=== PATIENT | female | born 1965 | race Caucasian/White ===

== ENCOUNTER 2016-06-16 19:05 | Emergency (ER) | payer MEDICARE, OTHER ==
[~2016-06-16] VITALS: Ht 165.1 cm; Wt 41.0 kg
[~2016-06-16 19:05] MED LIST: HIGH BP MED; LEVO75TA3 PO; MORP30SU PO; NEXI20CA PO; PRED20 PO; SYMB80AE INH; VALI10TA PO; VENTAER INH; ZITH250T PO; [UNRECOGNIZED DRUG - REMARK]
[2016-06-16 19:06] VITALS: BP 187/86; PULSE 69; RESP 14; TEMP 98.1; O2SAT 94
--- NOTE | 2016-06-16 20:07 | PD ---
HPI Chief Complaint: Fall Time Seen by Provider: 19:57 Travel History International Travel<30 days: No Contact w/Intl Traveler<30days: No Traveled to known affect area: No History of Present Illness HPI 50-year-old female with history of COPD presents for evaluation of a mechanical fall. She reports a prior to arrival she was in her motel when she tripped and fell, striking her face against a sink. No loss of consciousness. She reports that it broke her upper false teeth. She is now complaining of facial pain, headache and neck pain. Symptoms are aching, constant, worse with movement or palpation. She endorses some nausea. Denies vomiting, confusion, amnesia. Denies any injury to the extremities, torso. She is complaining of some wheezing secondary to her COPD and is requesting a breathing treatment. She is not on any blood thinning medications. She has no other complaints at this time. PFSH Past Medical History Cardiovascular Problems: Yes (CHF) Hypertension: Yes Respiratory: Yes (COPD) Past Surgical History Hysterectomy: Yes Other Surgery: Yes (SPLEEN, LIVER) Social History Alcohol Use: No Tobacco Use: Yes (QUIT 6 MTH AGO) Substance Use: Yes (METH) Allergies-Medications (Allergen,Severity, Reaction): Coded Allergies: No Known Allergies (Unverified , 06/16/16) Reported Meds & Prescriptions Reported Meds & Active Scripts Active Lortab (Hydrocodone-Acetaminophen) 5-325 Mg Tab 1 Tab PO Q6H PRN Zithromax Z-Christian (Azithromycin) 250 Mg Tab 250 Mg PO DIRECTED 500 MG (2 TABLETS) PO ON DAY 1, THEN 250 MG (1 TABLET) PO ON DAYS 2 TO 5. Deltasone (Prednisone) 20 Mg Tab 20 Mg PO BID [id number] 18 Gm Aero 2 Puff INH Q4-6H PRN * SHAKE WELL BEFORE USE * Symbicort (Budesonide/Formoterol Fumarate) 80 Mcg/4.5 Mcg Aer 2 Puff INH BID * SHAKE WELL BEFORE USE * Reported [O2 @ Home] Nexium (Esomeprazole Magnesium) Esomeprazole Magnesium 20 mg Cap 20 Mg PO DAILY [id number] 18 Gm Aero 2 Puff INH Q4H PRN * SHAKE WELL BEFORE USE * [High Bp Med] Valium (Diazepam) 10 Mg Tab 10 Mg PO BID Levothyroxine 75 mcg (Levothyroxine Sodium) 75 Mcg Tab 75 Mcg PO DAILY Morphine Sulfate 30 Mg Tab 30 Mg PO Q6H PRN Review of Systems Except as stated in HPI: all other systems reviewed are Neg Physical Exam Narrative GENERAL: Well-developed well-nourished female in no acute distress SKIN: Warm and dry. Abrasions to the face, nose noted. No full-thickness lacerations. HEAD: Atraumatic. Normocephalic. EYES: Pupils equal and round. No scleral icterus. No injection or drainage. ENT: No nasal bleeding or discharge. Mucous membranes pink and moist. Skin as noted above. Tenderness to palpation to the bridge of nose, maxillary sinuses. No obvious bony deformity, no septal hematoma. Her false teeth have been removed prior to arrival. NECK: Trachea midline. No JVD. CARDIOVASCULAR: Regular rate and rhythm. No murmur appreciated. RESPIRATORY: No accessory muscle use. Mild wheezing bilaterally. GASTROINTESTINAL: Abdomen soft, non-tender, nondistended. MUSCULOSKELETAL: No obvious deformities. There is no cervical or thoracic or lumbar midline tenderness. NEUROLOGICAL: Awake and alert. No obvious cranial nerve deficits. Motor grossly within normal limits. Normal speech. Data Data Last Documented VS Vital Signs Date Time Temp Pulse Resp B/P Pulse Ox O2 Delivery O2 Flow Rate FiO2 06/16/16 20:00 20 95 Room Air 06/16/16 19:06 98.1 69 187/[address] Brain W/O Iv Contrast(Rout) (06/16/16 ) Ct Facial Bones W/O Iv Cont (06/16/16 ) Ct Cerv Spine W/O Contrast (06/16/16 ) Ice/Cold Pack (06/16/16 20:03) Albuterol-Ipratropium Neb (Duoneb Neb) (06/16/16 20:15) Acetamin-Hydrocod 325-5 Mg ([place] 5-325 (06/16/16 21:00) Ondansetron Odt (Zofran Odt) (06/16/16 21:00) [facility] Medical Decision Making Medical Screen Exam Complete: Yes Emergency Medical Condition: Yes Medical Record Reviewed: Yes Interpretation(s) CT C SPINE CONCLUSION: 1. No acute bony abnormality. Moderate to severe degenerative disc disease in the lower cervical spine. CT facial bones CONCLUSION: 1. Mildly displaced fractures of the anterior and medial wall of the right maxillary sinus and nasal septum with fractures of the medial and lateral pterygoid plates on the right. Fluid and hemorrhage in the maxillary sinuses. Small amount of subcutaneous air in the right face. CT brain no acute abnormalities Differential Diagnosis Facial abrasion, contusion, fracture, septal hematoma, intracranial hemorrhage Narrative Course 50-year-old female with head, neck, facial pain after a mechanical fall prior to arrival. On examination she has facial abrasions, tenderness to palpation. CT of the brain, cervical spine and facial bones have been ordered. DuoNeb therapy will be initiated. Her last tetanus vaccination was approximately one year ago. CT of the facial bones reveals mildly displaced fractures of the anterior and medial gleason of the maxillary sinus as well as the nasal septum. There also fractures through the medial and lateral revealed plates on the right. There is fluid or hemorrhage in the maxillary sinuses bilaterally. The globes are intact. We do not currently have a cranial facial surgeon risk control product liability director today and there is no indication for emergent transfer to an outside facility. The plan is to have the patient follow-up with a local cranial facial surgeon in the next few days. Discussed with my attending who agrees with plan of care. She will be given the name of several local cranial facial surgeons. She also has a primary care physician, Dr. Bliss, and is encouraged to call him if she has any trouble establishing care in the next 5 to 7 days. She is stable for discharge. Diagnosis Primary Impression: Multiple facial fractures Qualified Code: S02.92XA - Multiple facial fractures, closed, initial encounter Referrals: Ezra Adler DDS, Curtis J. DDS Thayer, Roger DMD Additional Instructions: Follow-up with a cranial facial surgeon such as Dr. Adler, Dr. Hackett, Dr. Salas, in the next 5-7 days. Call to make appointment. Apply ice pack to the affected area several times a day 10-15 minutes at a time. Wash the wounds gently with soap and water daily. Avoid blowing nose. Return for any emergent medical conditions. Med/Other Pt SpecificInfo: Prescription(s) given Scripts Hydrocodone-Acetaminophen (Lortab)5-325 Mg Tab1 Tab PO Q6H PRN (PAIN) #20 TAB Ref 0 Prov:Enrrique Razo MD 06/16/16 Disposition: 01 DISCHARGE HOME Condition: Stable Ke Jacinto Jun 16, 2016 20:07
[2016-06-16] MEDS ORDERED: RESP: ALBUTEROL 2.5 MG/IPRATROPIUM 0.5 MG NEB (SCH) INH ONE (20:15)
--- NOTE | 2016-06-16 20:45 | RADRPT ---
EXAM DATE/TIME: 06/16/2016 20:25 [facility] COMPARISON: No previous studies available for comparison. INDICATIONS : Trip and fall with head and facial trauma. RADIATION DOSE: 31.12 CTDIvol (mGy) MEDICAL HISTORY : Congestive hearrt failure. Hypertension. SURGICAL HISTORY : Hysterectomy. ENCOUNTER: Initial ACUITY: 1 day PAIN SCALE: 7/10 LOCATION: cranial TECHNIQUE: Multiple contiguous axial images were obtained of the head. Using automated exposure control and adj ustment of the mA and/or kV according to patient size, radiation dose was kept as low as reasonably a chievable to obtain optimal diagnostic quality images. FINDINGS: There is no acute intracranial hemorrhage, mass effect or shift. No hydrocephalus. There are right si ded facial bone fractures. See facial bone CT. Fluid or hemorrhage in the maxillary sinuses bilateral ly. CONCLUSION: 1. No acute intracranial abnormalities. Facial bone fractures. Lazarus Hi MD on June 16, 2016 at 20:42 Board Certified Radiologist. This report was verified electronically.
--- NOTE | 2016-06-16 20:49 | RADRPT ---
EXAM DATE/TIME: 06/16/2016 20:25 [facility] COMPARISON: No previous studies available for comparison. INDICATIONS : Trip and fall with head and facial trauma. RADIATION DOSE: 12.01 CTDIvol (mGy) MEDICAL HISTORY : Congestive hearrt failure. Hypertension. SURGICAL HISTORY : Hysterectomy. ENCOUNTER: Initial ACUITY: 1 day PAIN SCALE: 7/10 LOCATION: neck TECHNIQUE: Volumetric scanning of the cervical spine was performed. Multiplanar reconstructions in the sagittal, coronal and oblique axial planes were performed. Using automated exposure control and adjustment o f the mA and/or kV according to patient size, radiation dose was kept as low as reasonably achievable to obtain optimal diagnostic quality images. FINDINGS: There is moderate to severe degenerative disc disease with no acute fracture spondylolisthesis. No pr evertebral soft tissue swelling. CONCLUSION: 1. No acute bony abnormality. Moderate to severe degenerative disc disease in the lower cervical spin e. Lazarus Hi MD on June 16, 2016 at 20:44 Board Certified Radiologist. This report was verified electronically.
--- NOTE | 2016-06-16 20:51 | RADRPT ---
EXAM DATE/TIME: 06/16/2016 20:25 [facility] COMPARISON: No previous studies available for comparison. INDICATIONS : Trip and fall with head and facial trauma. RADIATION DOSE: 58.78 CTDIvol (mGy) MEDICAL HISTORY : Congestive hearrt failure. Hypertension. SURGICAL HISTORY : Hysterectomy. ENCOUNTER: Initial ACUITY: 1 day PAIN SCORE: 7/10 LOCATION: facial TECHNIQUE: Volumetric scanning of the facial bones was performed. Using automated exposure control and adjustme nt of the mA and/or kV according to patient size, radiation dose was kept as low as reasonably achiev able to obtain optimal diagnostic quality images. FINDINGS: There are mildly displaced fractures of the anterior and medial wall of the maxillary sinus as well a s the nasal septum. There also fractures through the medial and lateral pterygoid plates on the right . There is fluid or hemorrhage in the maxillary sinuses bilaterally. The globes are intact. CONCLUSION: 1. Mildly displaced fractures of the anterior and medial wall of the right maxillary sinus and nasal septum with fractures of the medial and lateral pterygoid plates on the right. Fluid and hemorrhage i n the maxillary sinuses. Small amount of subcutaneous air in the right face. Lazarus Hi MD on June 16, 2016 at 20:48 Board Certified Radiologist. This report was verified electronically.
[2016-06-16] MEDS ORDERED: HYDR-3533 PO (20:54)
[2016-06-16] MEDS ORDERED: ACETAMINOPHEN/HYDROcodone 325 MG/5 MG TAB PO ONE (21:00)
[2016-06-16] MEDS ORDERED: ONDANSETRON ODT 4 MG TAB PO ONE (21:00)
[2016-06-16] MEDS ORDERED: ZOFR4TAB PO (21:12)
[2016-08-31] MEDS ORDERED: CIPR250T2 PO (19:51)
== END 2016-06-16 21:24 | disposition home or self-care (01) ==
LOC: NEPB 19:05
DX: S02.40CA Maxillary fracture, right side, initial encounter for closed fracture (principal); S02.19XA Other fracture of base of skull, initial encounter for closed fracture; S02.2XXA Fracture of nasal bones, initial encounter for closed fracture; I10 Essential (primary) hypertension; H44.9 Unspecified disorder of globe; I50.9 Heart failure, unspecified; W01.10XA Fall on same level from slipping, tripping and stumbling with subsequent striking against unspecified object, initial encounter; Y92.59 Other trade areas as the place of occurrence of the external cause
CPT/HCPCS: 70450; 70486; 72125; 94664

== ENCOUNTER 2016-07-26 10:25 | Emergency (ER) | payer MEDICARE, OTHER ==
[~2016-07-26] VITALS: Ht 152.4 cm; Wt 50.0 kg
[~2016-07-26 10:25] MED LIST changes: +HYDR-3533 PO; +ZOFR4TAB PO
[2016-07-26] MEDS ORDERED: MORPHINE SULFATE 4 MG/ML INJ IV PUSH ONE (11:00)
[2016-07-26] MEDS ORDERED: SODIUM CHLORIDE 0.9% FLUSH 5 ML FLUSH IVF PRN ×2 (11:00→11:30)
--- NOTE | 2016-07-26 11:27 | PD ---
HPI Chief Complaint: chest pain Time Seen by Provider: 11:00 Travel History International Travel<30 days: No Contact w/Intl Traveler<30days: No Traveled to known affect area: No History of Present Illness HPI This is a 50-year-old female with history of COPD on 2.5 L of oxygen at night who presents for evaluation of dyspnea, some left-sided chest discomfort. For the past week she has been feeling more short of breath. She does endorse a cough which is new. Since yesterday she began experiencing a left-sided chest discomfort which she describes it as a throbbing pain on the left side of her chest that seems to be worse with movement, coughing. She denies any fevers or chills, Swelling, abdominal pain, nausea or vomiting. She reports that she has run out of her nebulizer and albuterol inhaler medication and she is concerned that she may be getting an infection. She has no other complaints at this time. PFSH Past Medical History Cardiovascular Problems: Yes (CHF) Hypertension: Yes Respiratory: Yes (COPD) Past Surgical History Hysterectomy: Yes Other Surgery: Yes (SPLEEN, LIVER) Social History Alcohol Use: No Tobacco Use: Yes (QUIT 6 MTH AGO) Substance Use: Yes (METH) Allergies-Medications (Allergen,Severity, Reaction): Coded Allergies: No Known Allergies (Unverified , 07/26/16) Reported Meds & Prescriptions Reported Meds & Active Scripts Active Prednisone 20 Mg Tab 20 Mg PO BID 5 Days Azithromycin 250 Mg Tab 250 Mg PO DIRECTED Take 2 tabs (500 mg) on day 1 then 1 tab daily x 4 days. Ventolin Hfa 18 GM Inh (Albuterol Sulfate) 90 Mcg/Act Aer 2 Puff INH Q4-6H PRN Albuterol Neb (Albuterol Sulfate) 2.5 Mg/3 Ml Neb 2.5 Mg NEB Q4HR NEB While awake Zofran (Ondansetron HCl) 4 Mg Tab 4 Mg PO Q6HR PRN Lortab (Hydrocodone-Acetaminophen) 5-325 Mg Tab 1 Tab PO Q6H PRN Reported [O2 @ Home] [High Bp Med] Review of Systems Except as stated in HPI: all other systems reviewed are Neg Physical Exam Narrative Blood pressure 175/79, O2 saturation on 2.5 L oxygen 100%, pulse 98, temperature 96.2, respiratory rate 20 GENERAL: Well-developed well-nourished female in no acute distress SKIN: Warm and dry. HEAD: Atraumatic. Normocephalic. EYES: Pupils equal and round. No scleral icterus. No injection or drainage. ENT: No nasal bleeding or discharge. Mucous membranes pink and moist. NECK: Trachea midline. No JVD. CARDIOVASCULAR: Regular rate and rhythm. No murmur appreciated. RESPIRATORY: No accessory muscle use. Clear to auscultation. Breath sounds equal bilaterally, somewhat diminished with prolonged expiratory phase. No crackles no wheezing or rhonchi GASTROINTESTINAL: Abdomen soft, non-tender, nondistended. Hepatic and splenic margins not palpable. MUSCULOSKELETAL: No obvious deformities. No edema NEUROLOGICAL: Awake and alert. No obvious cranial nerve deficits. Motor grossly within normal limits. Normal speech. PSYCHIATRIC: Appropriate mood and affect; insight and judgment normal. Data Data Last Documented VS Vital Signs Date Time Temp Pulse Resp B/P Pulse Ox O2 Delivery O2 Flow Rate FiO2 07/26/16 14:00 96.2 90 20 175/79 100 Orders Electrocardiogram (07/26/16 10:49) Sodium Chloride 0.9% Flush (Ns Flush) (07/26/16 11:00) Morphine Inj (Morphine Inj) (07/26/16 11:00) Electrocardiogram (07/26/16 11:20) Basic Metabolic Panel (Bmp) (07/26/16 11:20) Ckmb (Isoenzyme) Profile (07/26/16 11:20) Complete Blood Count With Diff (07/26/16 11:20) Magnesium (Mg) (07/26/16 11:20) Troponin I (07/26/16 11:20) Chest, Single Ap (07/26/16 11:20) Ecg Monitoring (07/26/16 11:20) Iv Access Insert/Monitor (07/26/16 11:20) Oximetry (07/26/16 11:20) Oxygen Administration (07/26/16 11:20) Sodium Chloride 0.9% Flush (Ns Flush) (07/26/16 11:30) Ct Pulmonary Angiogram (07/26/16 11:22) Albuterol-Ipratropium Neb (Duoneb Neb) (07/26/16 11:30) CKMB (07/26/16 12:11) CKMB% (07/26/16 12:11) Iohexol 350 Inj (Omnipaque 350 Inj) (07/26/16 13:25) Prednisone (Deltasone) (07/26/16 14:00) Albuterol-Ipratropium Neb (Duoneb Neb) (07/26/16 14:00) Labs Laboratory Tests Test 07/26/16 12:11 White Blood Count 10.4 TH/MM3 Red Blood Count 4.32 MIL/MM3 Hemoglobin 12.6 GM/DL Hematocrit 38.3 % Mean Corpuscular Volume 88.7 FL Mean Corpuscular Hemoglobin 29.2 PG Mean Corpuscular Hemoglobin 32.9 % Concent Red Cell Distribution Width 16.1 % Platelet Count 389 TH/MM3 Mean Platelet Volume 8.1 FL Neutrophils (%) (Auto) 84.9 % Lymphocytes (%) (Auto) 9.0 % Monocytes (%) (Auto) 4.5 % Eosinophils (%) (Auto) 1.0 % Basophils (%) (Auto) 0.6 % Neutrophils # (Auto) 8.8 TH/MM3 Lymphocytes # (Auto) 0.9 TH/MM3 Monocytes # (Auto) 0.5 TH/MM3 Eosinophils # (Auto) 0.1 TH/MM3 Basophils # (Auto) 0.1 TH/MM3 CBC Comment DIFF FINAL Differential Comment Sodium Level 134 MEQ/L Potassium Level 4.5 MEQ/L Chloride Level 98 MEQ/L Carbon Dioxide Level 30.9 MEQ/L Anion Gap 5 MEQ/L Blood Urea Nitrogen 8 MG/DL Creatinine 0.58 MG/DL Estimat Glomerular Filtration 110 ML/MIN Rate Random Glucose 96 MG/DL Calcium Level 8.6 MG/DL Magnesium Level 2.1 MG/DL Total Creatine Kinase 108 U/L Creatine Kinase MB 6.4 NG/ML Troponin I LESS THAN 0.02 NG/ML MDM Medical Decision Making Medical Screen Exam Complete: Yes Emergency Medical Condition: Yes Medical Record Reviewed: Yes Interpretation(s) EKG sinus rhythm Chest x-ray and emphysema no acute abnormalities CT pulmonary angiogram negative for embolus, small pericardial effusion, lobulated masses and left upper quadrant. CBC unremarkable CMP unremarkable, troponin negative, CK-MB mildly elevated at 6.4 Differential Diagnosis COPD exacerbation, aortic dissection, pulmonary embolism, bronchitis, pneumothorax, acute coronary syndrome, pericarditis, myocarditis Narrative Course 50-year-old female who is rather for albuterol nebulizer and inhaler presents with increased dyspnea over the past week, cough, some left-sided chest discomfort that is worse when she moves or coughs. On initial examination she appears well. Her oxygen saturation is 100% on her normal 2.5 L. She is not tachypneic or tachycardic. Lung auscultation reveals some diminished breath sounds and prolonged expiratory phase consistent with emphysema. Plan is for basic lab work, EKG, chest x-ray, CT pulmonary injury. She'll be monitored closely. The patient's lab work imaging studies have been reviewed and are reassuring. CT pulmonary injury was negative for embolus, she was given a copy discussed with her primary care physician whether or not she needs a CT abdomen and pelvis. The patient's symptoms appear to be consistent with a COPD exacerbation and this is what the patient feels most likely as well. Acute coronary syndrome was considered in the differential however her pain is very atypical. At this point in time the plan will be to discharge the patient with a refill of her albuterol nebulizer and inhaler as well as a short course of prednisone and azithromycin. She is agreeable with this plan. Diagnosis Primary Impression: COPD exacerbation Additional Instructions: Medication as prescribed. Avoid tobacco products. Follow-up closely with primary care physician. Return for new or worsening symptoms. Med/Other Pt SpecificInfo: Prescription(s) given Scripts Prednisone 20 Mg Tab20 Mg PO BID 5 Days Ref 0 Prov:Blanca Villarreal MD 07/26/16 Azithromycin 250 Mg [id number] Mg PO DIRECTED #6 TAB Ref 0 Take 2 tabs (500 mg) on day 1 then 1 tab daily x 4 days. Prov:Blanca Villarreal MD 07/26/16 Albuterol 18 GM Inh (Ventolin Hfa 18 GM Inh)90 Mcg/Act Aer2 Puff INH Q4-6H PRN ( SHORTNESS OF BREATH) #1 INHALER Ref 0 Prov:Blanca Villarreal MD 07/26/16 Albuterol Neb 2.5 Mg/3 Ml Neb2.5 Mg NEB Q4HR NEB #60 NEBULE Ref 0 While awake Prov:Blanca Villarreal MD 07/26/16 Disposition: 01 DISCHARGE HOME Condition: Stable Ke Jacinto Jul 26, 2016 11:27 Ke Jacinto Jul 26, 2016 11:27
[2016-07-26] MEDS ORDERED: RESP: ALBUTEROL 2.5 MG/IPRATROPIUM 0.5 MG NEB (SCH) INH ONE (11:30)
[2016-07-26 12:25] LABS: AUTOMATED NEUTROPHIL # 8.8 TH/MM3 (1.8-7.7); BASOPHIL # 0.1 TH/MM3 (0-0.2); BASOPHIL % 0.6 % (0.0-2.0); EOSINOPHIL # 0.1 TH/MM3 (0-0.4); HEMATOCRIT 38.3 % (35.0-46.0); HEMO FLAGS DIFF FINAL; LYMPHOCYTE # 0.9 TH/MM3 (1.0-4.8); MEAN CELL VOLUME 88.7 FL (80.0-100.0); MEAN CORPUSCULAR HEMOGLOBIN 29.2 PG (27.0-34.0); MEAN CORPUSCULAR HGB CONC 32.9 % (32.0-36.0); MONO % 4.5 % (0.0-8.0); NEUT % 84.9 % (16.0-70.0); PLATELET COUNT 389 TH/MM3 (150-450); RED BLOOD COUNT 4.32 MIL/MM3 (4.00-5.30); RED CELL DISTRIBUTION WIDTH 16.1 % (11.6-17.2); WHITE BLOOD COUNT 10.4 TH/MM3 (4.0-11.0)
--- NOTE | 2016-07-26 12:30 | RADRPT ---
EXAM DATE/TIME: 07/26/2016 11:21 [facility] COMPARISON: CHEST SINGLE AP, February 20, 2016, 17:42. INDICATIONS : Chest pain. MEDICAL HISTORY : Chronic obstructive pulmonary disease. SURGICAL HISTORY : None. ENCOUNTER: Initial ACUITY: 1 day PAIN SCORE: 7/10 LOCATION: Bilateral chest FINDINGS: A single view of the chest demonstrates the lungs to be symmetrically hyperinflated without evidence of mass, infiltrate or effusion. The cardiomediastinal contours are unremarkable. Osseous structure s are intact. CONCLUSION: Underlying emphysema. Jared Ross MD on July 26, 2016 at 12:27 Board Certified Radiologist. This report was verified electronically.
[2016-07-26 12:39] LABS: ANION GAP 5 MEQ/L (5-15); BICARBONATE 30.9 MEQ/L (21.0-32.0); BLOOD UREA NITROGEN 8 MG/DL (7-18); CHLORIDE 98 MEQ/L (98-107); GLOMERULAR FILTRATION RATE 110 ML/MIN (>89); MAGNESIUM 2.1 MG/DL (1.5-2.5); POTASSIUM 4.5 MEQ/L (3.5-5.1); SODIUM (NA) 134 MEQ/L (136-145)
[2016-07-26 12:41] LABS: CREATINE KINASE 108 U/L (26-192)
[2016-07-26 12:54] LABS: CKMB 6.4 NG/ML (0.5-3.6)
[2016-07-26] MEDS ORDERED: IOHEXOL 350 MG/ML 10 ML VIAL (for RAD DIAG) IV ONE (13:25)
--- NOTE | 2016-07-26 13:42 | RADRPT ---
EXAM DATE/TIME: 07/26/2016 13:24 [facility] COMPARISON: CT CERVICAL SPINE W/O CONTRAST, June 16, 2016, 20:25. INDICATIONS : Left sided chest pain for 2 days; evaluate for pulmonary embolism. IV CONTRAST: 65 cc Omnipaque 350 (iohexol) IV RADIATION DOSE: 14.64 CTDIvol (mGy) MEDICAL HISTORY : Hypertension. Cardiovascular disease SURGICAL HISTORY : Hysterectomy. Spleen and liver surgeries. ENCOUNTER: Initial ACUITY: 2 days PAIN SCALE: 6/10 LOCATION: Left chest TECHNIQUE: Volumetric scanning of the chest was performed using a pulmonary embolism protocol MIP images were re constructed. Using automated exposure control and adjustment of the mA and/or kV according to patien t size, radiation dose was kept as low as reasonably achievable to obtain optimal diagnostic quality images. FINDINGS: The examination is of excellent diagnostic quality. No pulmonary embolus is identified. The ascending aorta is mildly aneurysmal with a maximum dimension of 3.4 cm. The arch and descending thoracic aort a are normal in caliber. There is a moderate size pericardial effusion. No significant hilar or mediastinal adenopathy is seen . No axillary adenopathy is identified. Imaging through the thorax demonstrate severe COPD changes. There is advanced emphysema throughout robert th lung apices. The limited portions of upper abdomen visualized demonstrate multiple lobulated masses in the left up per quadrant of the abdomen. This appears to represent the spleen. The patient is likely post splenic injury and these may be splenules. If the patient has not had previous imaging of this, CT imaging t hrough the abdomen is warranted for further assessment. There are old, healed posterior rib fractures on the left. CONCLUSION: 1. There are advanced COPD changes. 2. Small pericardial effusion. 3. No pulmonary embolus. 4. Multiple lobulated masses in the left upper quadrant which probably represent splenules. If the pa tient has not had previous CT imaging of the abdomen this would be of benefit for further assessment. Enrrique Lewis MD on July 26, 2016 at 13:34 Board Certified Radiologist. This report was verified electronically.
[2016-07-26] MEDS ORDERED: ALBU0.08 NEB ×2 (13:53→13:55)
[2016-07-26] MEDS ORDERED: AZIT250T3 PO ×2 (13:53→13:55)
[2016-07-26] MEDS ORDERED: VENTAER INH ×2 (13:53→13:55)
--- NOTE | 2016-07-26 13:54 | PD ---
Data Data Orders Electrocardiogram (07/26/16 10:49) Sodium Chloride 0.9% Flush (Ns Flush) (07/26/16 11:00) Morphine Inj (Morphine Inj) (07/26/16 11:00) Electrocardiogram (07/26/16 11:20) Basic Metabolic Panel (Bmp) (07/26/16 11:20) Ckmb (Isoenzyme) Profile (07/26/16 11:20) Complete Blood Count With Diff (07/26/16 11:20) Magnesium (Mg) (07/26/16 11:20) Troponin I (07/26/16 11:20) Chest, Single Ap (07/26/16 11:20) Ecg Monitoring (07/26/16 11:20) Iv Access Insert/Monitor (07/26/16 11:20) Oximetry (07/26/16 11:20) Oxygen Administration (07/26/16 11:20) Sodium Chloride 0.9% Flush (Ns Flush) (07/26/16 11:30) Ct Pulmonary Angiogram (07/26/16 11:22) Albuterol-Ipratropium Neb (Duoneb Neb) (07/26/16 11:30) CKMB (07/26/16 12:11) CKMB% (07/26/16 12:11) Iohexol 350 Inj (Omnipaque 350 Inj) (07/26/16 13:25) Prednisone (Deltasone) (07/26/16 14:00) Duoneb Q15min X2 (07/26/16 14:00) Labs Laboratory Tests Test 07/26/16 12:11 White Blood Count 10.4 TH/MM3 Red Blood Count 4.32 MIL/MM3 Hemoglobin 12.6 GM/DL Hematocrit 38.3 % Mean Corpuscular Volume 88.7 FL Mean Corpuscular Hemoglobin 29.2 PG Mean Corpuscular Hemoglobin 32.9 % Concent Red Cell Distribution Width 16.1 % Platelet Count 389 TH/MM3 Mean Platelet Volume 8.1 FL Neutrophils (%) (Auto) 84.9 % Lymphocytes (%) (Auto) 9.0 % Monocytes (%) (Auto) 4.5 % Eosinophils (%) (Auto) 1.0 % Basophils (%) (Auto) 0.6 % Neutrophils # (Auto) 8.8 TH/MM3 Lymphocytes # (Auto) 0.9 TH/MM3 Monocytes # (Auto) 0.5 TH/MM3 Eosinophils # (Auto) 0.1 TH/MM3 Basophils # (Auto) 0.1 TH/MM3 CBC Comment DIFF FINAL Differential Comment Sodium Level 134 MEQ/L Potassium Level 4.5 MEQ/L Chloride Level 98 MEQ/L Carbon Dioxide Level 30.9 MEQ/L Anion Gap 5 MEQ/L Blood Urea Nitrogen 8 MG/DL Creatinine 0.58 MG/DL Estimat Glomerular Filtration 110 ML/MIN Rate Random Glucose 96 MG/DL Calcium Level 8.6 MG/DL Magnesium Level 2.1 MG/DL Total Creatine Kinase 108 U/L Creatine Kinase MB 6.4 NG/ML Troponin I LESS THAN 0.02 NG/ML MDM Supervised Visit with CARRILLO: Yes Narrative Course The history, exam, and medical decision-making in the associated midlevel provider note were completed with my assistance. I reviewed and agree with the findings presented. I attest that I had a [id number] encounter with the patient on the same day, and personally performed and documented my assessment and findings in the medical record. *My assessment and Findings: This is a 50-year-old female who presents to the emergency department with a history of COPD on 2-1/2 L of oxygen at home who presents today with increasing shortness of breath. She says she ran out of her nebulizers last night. She also says she's been having left-sided chest pain for 1 week which is pleuritic and worse with exertion. She is not in any respiratory distress on exam. She does have poor air movement. Labs are obtained which were reassuring and a CT pulmonary endocrine was negative for PE or pneumonia. She was given a bronchodilator treatment and will be discharged on steroids, bronchodilators as well as antibiotics. I don't suspect a cardiac etiology of her chest pain is his been going on for a week, troponin is negative , and her symptoms seemed predominantly pulmonary. Blanca Villarreal MD Jul 26, 2016 13:54
[2016-07-26] MEDS ORDERED: PRED20 PO (13:55)
[2016-07-26 14:00] VITALS: BP 175/79; PULSE 90; RESP 20; TEMP 96.2; O2SAT 100
[2016-07-26] MEDS ORDERED: predniSONE 20 MG TAB PO ONE (14:00)
[2016-07-26] MEDS: RESP: ALBUTEROL 2.5 MG/IPRATROPIUM 0.5 MG NEB (SCH) INH (14:09)
--- NOTE | 2016-07-27 11:26 | EKG ---
Date Performed: 07/26/2016 Time Performed: 11:40:36 PTAGE: 50 years EKG: Sinus rhythm WITH SHORT CA INTERVAL BORDERLINE ECG PREVIOUS TRACING : 02/20/2016 18.19 DOCTOR: Cecilio Fitch Interpretating Date/Time 07/27/2016 11:25:13
[2016-08-31] MEDS ORDERED: CIPR250T2 PO (19:51)
== END 2016-07-26 15:29 | disposition home or self-care (01) ==
LOC: NEDAMB 10:25
DX: J44.1 Chronic obstructive pulmonary disease with (acute) exacerbation (principal); I50.9 Heart failure, unspecified; I10 Essential (primary) hypertension
CPT/HCPCS: 71010; 71275; 80048; 82550; 82552; 83735; 84484; 85025; 93005; 94640; 94664; 99285; Q9967

== ENCOUNTER 2016-08-20 23:53 | Inpatient (IN) | payer MEDICARE, OTHER ==
[~2016-08-20] VITALS: Ht 157.5 cm; Wt 50.0 kg
[~2016-08-20 23:53] MED LIST changes: +ALBU0.08 NEB; +AZIT250T3 PO; -LEVO75TA3 PO; -MORP30SU PO; -NEXI20CA PO; -SYMB80AE INH; -VALI10TA PO; -ZITH250T PO
[2016-08-20 23:57] VITALS: BP 213/89; PULSE 124; RESP 22; TEMP 97.9; TEMP 99.2; O2SAT 97
[2016-08-21] VITALS (9 sets, daily range): BP systolic 100–144; BP diastolic 53–72; PULSE 90–114; RESP 16–25; TEMP 96.2–98.6; O2SAT 94–99
[2016-08-21] MEDS ORDERED: SYMB80AE INH (00:07)
[2016-08-21] MEDS ORDERED: LEVO75TA3 PO (00:07)
[2016-08-21] MEDS ORDERED: AZITHROMYCIN 250 MG TAB PO ONE (00:15)
[2016-08-21] MEDS ORDERED: SODIUM CHLORIDE 0.9% FLUSH 5 ML FLUSH IVF PRN (00:15)
[2016-08-21 00:24] LABS: AUTOMATED NEUTROPHIL # 15.1 TH/MM3 (1.8-7.7); BASOPHIL # 0.1 TH/MM3 (0-0.2); BASOPHIL % 0.3 % (0.0-2.0); EOSINOPHIL # 0.1 TH/MM3 (0-0.4); EOSINOPHIL % 0.6 % (0.0-4.0); HEMATOCRIT 39.3 % (35.0-46.0); HEMO FLAGS DIFF FINAL; LYMPH % 11.8 % (9.0-44.0); LYMPHOCYTE # 2.3 TH/MM3 (1.0-4.8); MEAN CELL VOLUME 87.3 FL (80.0-100.0); MEAN CORPUSCULAR HEMOGLOBIN 29.7 PG (27.0-34.0); MONO % 9.2 % (0.0-8.0); NEUT % 78.1 % (16.0-70.0); PLATELET COUNT 348 TH/MM3 (150-450); WHITE BLOOD COUNT 19.3 TH/MM3 (4.0-11.0)
[2016-08-21] MEDS: RESP: ALBUTEROL 2.5 MG/IPRATROPIUM 0.5 MG NEB (SCH) INH ×7 (00:30→21:36)
--- NOTE | 2016-08-21 00:40 | PD ---
HPI Chief Complaint: Respiratory Symptoms Time Seen by Provider: 00:05 Travel History International Travel<30 days: No Contact w/Intl Traveler<30days: No Traveled to known affect area: No History of Present Illness HPI Is a 50-year-old woman presents emergent from of increasing shortness of breath past 2 hours. She is a history of COPD. She's been sick for couple days now URI symptoms. Occasionally productive of thick sputum. Some mild chest pain. Started getting worse today. About 2 hours ago started having worsening of her shortness of breath. She called 911 and EMS found her 50% room air oxygen saturations. She was given steroids and bronchodilators in route. She is improved some. She states she fell earlier today on her back and has severe back pain as well. History Past Medical History Narrative Medical COPD CHF TMJ Hyperthyroidism Hypertension Tetanus Vaccination: Unknown Influenza Vaccination: No Social History Alcohol Use: No Tobacco Use: No (QUIT 6 MTH AGO) Allergies-Medications (Allergen,Severity, Reaction): Coded Allergies: No Known Allergies (Unverified , 08/21/16) Reported Meds & Prescriptions Reported Meds & Active Scripts Active Ventolin Hfa 18 GM Inh (Albuterol Sulfate) 90 Mcg/Act Aer 2 Puff INH Q4-6H PRN Albuterol Neb (Albuterol Sulfate) 2.5 Mg/3 Ml Neb 2.5 Mg NEB Q4HR NEB While awake Reported Levothyroxine (Levothyroxine Sodium) 75 Mcg Tab 75 Mcg PO DAILY Symbicort Inh (Budesonide/Formoterol Fumarate) 80-4.5 Mcg/Act Aero 1 Puff INH Q12HR Review of Systems Except as stated in HPI: all other systems reviewed are Neg Physical Exam Narrative GENERAL: 50 year-old woman, then, appears older than stated age SKIN: Warm and dry. NECK: Trachea midline. No JVD. CARDIOVASCULAR: Regular rate and rhythm. No murmur appreciated. RESPIRATORY: Mild respiratory distress with tight squeaky wheezes, not moving much air. GASTROINTESTINAL: Abdomen soft, non-tender, nondistended. Hepatic and splenic margins not palpable. MUSCULOSKELETAL: No obvious deformities. No edema.. NEUROLOGICAL: Awake and alert. No obvious cranial nerve deficits. Motor grossly within normal limits. Normal speech. Data Data Last Documented VS Vital Signs Date Time Temp Pulse Resp B/P Pulse Ox O2 Delivery O2 Flow Rate FiO2 08/21/16 00:20 20 Nasal Cannula 08/21/16 00:20 96 4.00 08/21/16 00:00 123 08/20/16 23:57 99.2 213/89 Orders Complete Blood Count With Diff (08/21/16 00:06) Comprehensive Metabolic Panel (08/21/16 00:06) Magnesium (Mg) (08/21/16 00:06) Influenzae A/B Antigen (08/21/16 00:06) Iv Access Insert/Monitor (08/21/16 00:06) Ecg Monitoring (08/21/16 00:06) Oximetry (08/21/16 00:06) Oxygen Administration (08/21/16 00:06) Chest, Single Ap (08/21/16 00:06) Sodium Chloride 0.9% Flush (Ns Flush) (08/21/16 00:15) Albuterol-Ipratropium Neb (Duoneb Neb) (08/21/16 00:15) Azithromycin (Zithromax) (08/21/16 00:15) Magnesium Sulfate 1 Gm Premix (Magnesium (08/21/16 00:45) Labs Laboratory Tests Test 08/21/16 00:10 White Blood Count 19.3 TH/MM3 Red Blood Count 4.50 MIL/MM3 Hemoglobin 13.4 GM/DL Hematocrit 39.3 % Mean Corpuscular Volume 87.3 FL Mean Corpuscular Hemoglobin 29.7 PG Mean Corpuscular Hemoglobin 34.0 % Concent Red Cell Distribution Width 16.0 % Platelet Count 348 TH/MM3 Mean Platelet Volume 8.3 FL Neutrophils (%) (Auto) 78.1 % Lymphocytes (%) (Auto) 11.8 % Monocytes (%) (Auto) 9.2 % Eosinophils (%) (Auto) 0.6 % Basophils (%) (Auto) 0.3 % Neutrophils # (Auto) 15.1 TH/MM3 Lymphocytes # (Auto) 2.3 TH/MM3 Monocytes # (Auto) 1.8 TH/MM3 Eosinophils # (Auto) 0.1 TH/MM3 Basophils # (Auto) 0.1 TH/MM3 CBC Comment DIFF FINAL Differential Comment Sodium Level 131 MEQ/L Potassium Level 4.4 MEQ/L Chloride Level 93 MEQ/L Carbon Dioxide Level 30.0 MEQ/L Anion Gap 8 MEQ/L Blood Urea Nitrogen 17 MG/DL Creatinine 0.58 MG/DL Estimat Glomerular Filtration 110 ML/MIN Rate Random Glucose 111 MG/DL Calcium Level 8.2 MG/DL Magnesium Level 2.0 MG/DL Total Bilirubin 0.3 MG/DL Aspartate Amino Transf 21 U/L (AST/SGOT) Alanine Aminotransferase 20 U/L (ALT/SGPT) Alkaline Phosphatase 115 U/L Total Protein 7.9 GM/DL Albumin 3.5 GM/DL [facility] Medical Decision Making Medical Screen Exam Complete: Yes Emergency Medical Condition: Yes Interpretation(s) LABS: CBC remarkable for white count of 19,000 CMP is unremarkable. Chest x-ray: Hyperaeration. No cardio pulmonary disease. Influenza negative. Differential Diagnosis COPD, pneumonia, influenza, ACS, other Narrative Course Medical decision making INITIAL cause a 50 year-old woman who presents emergency Department with COPD exacerbation. Looks okay. Still pretty tight. She got steroids in route. We' ll give her magnesium, continue breathing treatments, BiPAP if not improving. Check x-rays labs EKG. Diagnosis Primary Impression: COPD exacerbation Cecilio Hardin MD Aug 21, 2016 00:40
[2016-08-21 00:46] LABS: ALKALINE PHOSPHATASE 115 U/L (45-117); TOTAL BILIRUBIN ADULT 0.3 MG/DL (0.2-1.0)
[2016-08-21] MEDS: MAGNESIUM SULFATE 1 GM PREMIX 100 ML IV SCH ×2 (00:46→01:14)
[2016-08-21 00:53] LABS: ALT (GPT) 20 U/L (10-53); ANION GAP 8 MEQ/L (5-15); AST (GOT) 21 U/L (15-37); BLOOD UREA NITROGEN 17 MG/DL (7-18); CHLORIDE 93 MEQ/L (98-107); GLOMERULAR FILTRATION RATE 110 ML/MIN (>89); POTASSIUM 4.4 MEQ/L (3.5-5.1); SODIUM (NA) 131 MEQ/L (136-145)
--- NOTE | 2016-08-21 01:35 | RADRPT ---
EXAM DATE/TIME: 08/21/2016 00:45 [place] COMPARISON: CHEST SINGLE AP, July 26, 2016, 11:21. INDICATIONS : Shortness of breath. MEDICAL HISTORY : Hypertension. Chronic obstructive pulmonary disease. SURGICAL HISTORY : None. ENCOUNTER: Initial ACUITY: 1 day PAIN SCORE: 0/10 LOCATION: Bilateral chest FINDINGS: Single AP view of the chest. Hyperaeration is again seen indicating emphysema. Lungs are clear. No ev idence of pleural effusion or pneumothorax. Cardiomediastinal silhouette within normal limits. CONCLUSION: Hyperaeration again noted indicating emphysema. No acute cardiopulmonary disease identified. Kolby Rocha MD on August 21, 2016 at 1:32 Board Certified Radiologist. This report was verified electronically.
[2016-08-21] MEDS ORDERED: RESP: ALBUTEROL 2.5 MG/3 ML NEB (PRN) INH (03:00)
[2016-08-21] MEDS: HEPARIN SODIUM - SQ 10,000 UNITS/ML VIAL SQ SCH ×3 (04:11→18:08)
[2016-08-21] MEDS: methylPREDNISolone SOD SUCC 125 MG/2 ML VIAL IVP SCH ×4 (04:11→21:17)
--- NOTE | 2016-08-21 06:02 | HHI.HP ---
[facility] No Primary Care Physician Admission Diagnosis COPD exacerbation Diagnoses: (1) COPD exacerbation (2) Hyponatremia (3) Leukocytosis Chief Complaint: Dyspnea Travel History International Travel<30 Days: No Contact w/Intl Traveler <30 Da: No Traveled to Known Affected Are: No History of Present Illness The patient is a 50-year-old female with history of COPD who presented to the emergency department with worsening shortness of breath over the last few days. She reports chest discomfort that is associated with cough. She states that her cough is nonproductive. Denies fever, chills, night sweats. Has had nausea, but no vomiting. She is supposed to be on oxygen at home, but has been homeless and unable to obtain the oxygen. Review of Systems Constitutional: DENIES: Fever, Chills, Night Sweats Eyes: DENIES: Blurred vision, Vision loss Ears, nose, mouth, throat: DENIES: Hearing loss Respiratory: COMPLAINS OF: Cough, Wheezing, Shortness of breath, DENIES: Sputum production Cardiovascular: COMPLAINS OF: Chest pain, Dyspnea on Exertion, DENIES: Palpitations, Lower Extremity Edema Gastrointestinal: COMPLAINS OF: Nausea, DENIES: Abdominal pain, Constipation, Diarrhea, Vomiting Genitourinary: DENIES: Urinary frequency, Urinary incontinence, Urgency, Hematuria, Dysuria, Nocturia Musculoskeletal: DENIES: Joint pain, Muscle aches Integumentary: DENIES: Pruritus, Rash Hematologic/lymphatic: DENIES: Bruising Neurologic: COMPLAINS OF: Headache Past Family Social History Past Medical History COPD Hypothyroidism Hypertension CHF Past Surgical History Denies Reported Medications Ventolin Hfa 18 GM Inh (Albuterol Sulfate) 90 Mcg/Act Aer 2 Puff INH Q4-6H PRN Albuterol Neb (Albuterol Sulfate) 2.5 Mg/3 Ml Neb 2.5 Mg NEB Q4HR NEB While awake Levothyroxine (Levothyroxine Sodium) 75 Mcg Tab 75 Mcg PO DAILY Symbicort Inh (Budesonide/Formoterol Fumarate) 80-4.5 Mcg/Act Aero 1 Puff INH Q12HR Allergies: Coded Allergies: No Known Allergies (Unverified , 08/21/16) Family History Denies Social History Quit smoking last year. Denies alcohol or illicit drug use. Physical Exam Vital Signs Vital Signs Date Time Temp Pulse Resp B/P Pulse Ox O2 Delivery O2 Flow Rate FiO2 08/21/16 05:17 92 20 119/72 96 Nasal Cannula 3 08/21/16 00:20 20 Nasal Cannula 08/21/16 00:20 96 Nasal Cannula 4.00 08/21/16 00:20 97 Nasal Cannula 4 08/21/16 00:00 123 22 93 Nasal Cannula 4 08/20/16 23:57 99.2 124 22 213/89 97 Physical Exam GENERAL: Thin female in no acute distress. HEENT: Normocephalic, atraumatic. Pupils equal, round and reactive. Extraocular movements intact. No scleral icterus. No injection or drainage. Oropharynx is clear. Mucous membranes are moist. CARDIOVASCULAR: Tachycardic. RESPIRATORY: Diffuse wheeze. Breathing is non-labored. GASTROINTESTINAL: Abdomen soft, non-tender, nondistended. EXTREMITIES: No lower extremity edema. No calf tenderness. PSYCH: Alert and oriented x 3. Laboratory Laboratory Tests Test 08/21/16 00:10 White Blood Count 19.3 Red Blood Count 4.50 Hemoglobin 13.4 Hematocrit 39.3 Mean Corpuscular Volume 87.3 Mean Corpuscular Hemoglobin 29.7 Mean Corpuscular Hemoglobin 34.0 Concent Red Cell Distribution Width 16.0 Platelet Count 348 Mean Platelet Volume 8.3 Neutrophils (%) (Auto) 78.1 Lymphocytes (%) (Auto) 11.8 Monocytes (%) (Auto) 9.2 Eosinophils (%) (Auto) 0.6 Basophils (%) (Auto) 0.3 Neutrophils # (Auto) 15.1 Lymphocytes # (Auto) 2.3 Monocytes # (Auto) 1.8 Eosinophils # (Auto) 0.1 Basophils # (Auto) 0.1 CBC Comment DIFF FINAL Differential Comment Sodium Level 131 Potassium Level 4.4 Chloride Level 93 Carbon Dioxide Level 30.0 Anion Gap 8 Blood Urea Nitrogen 17 Creatinine 0.58 Estimat Glomerular Filtration 110 Rate Random Glucose 111 Calcium Level 8.2 Magnesium Level 2.0 Total Bilirubin 0.3 Aspartate Amino Transf 21 (AST/SGOT) Alanine Aminotransferase 20 (ALT/SGPT) Alkaline Phosphatase 115 Total Protein 7.9 Albumin 3.5 Date/Time Procedure Status Source Growth 08/21/16 00:19 Influenza Types A,B Antigen (SUGAR) - Final Complete Nasal Washing NEGATIVE FOR FLU A AND B ANTIGEN.... Result Diagram: 08/21/16908/21/169 Assessment and Plan Assessment and Plan 1. COPD exacerbation: Continue supplemental oxygen, bronchodilators, steroids, azithromycin. 2. Hypothyroidism: Continue Synthroid. 3. Leukocytosis: Possibly stress reaction versus infection. Monitor labs. 4. Hyponatremia: Continue IV fluids. Monitor labs. 5. DVT prophylaxis: Heparin. Sal Chavarria MD Aug 21, 2016 06:02
[2016-08-21] MEDS: LEVOTHYROXINE SODIUM 75 MCG TAB PO SCH (06:26)
[2016-08-21] MEDS: BUDESONIDE-FORMOTEROL 80/4.5 MCG INHALER INH SCH ×2 (09:05→21:15)
[2016-08-21] MEDS: SODIUM CHLORIDE 0.9% FLUSH 5 ML FLUSH IVF SCH ×2 (09:05→21:16)
[2016-08-21] MEDS ORDERED: ACETAMINOPHEN 325 MG TAB PO PRN (10:30)
[2016-08-21] MEDS ORDERED: CALCIUM CARBONATE 500 MG CHEWABLE TAB CHEW PRN (10:30)
[2016-08-21] MEDS ORDERED: MAGNESIUM HYDROXIDE SUSP 30 ML CUP PO PRN (10:30)
[2016-08-21] MEDS ORDERED: ONDANSETRON HCL 4 MG/2 ML VIAL IV PRN (10:30)
[2016-08-21] MEDS ORDERED: ALUMINUM/MAGNESIUM/SIMETH 30 ML CUP PO PRN (10:30)
[2016-08-21] MEDS ORDERED: DOCUSATE SODIUM 50 MG/SENNA 8.6 MG TAB PO PRN (10:30)
--- NOTE | 2016-08-21 11:01 | HHI.PR ---
Subjective Remarks Follow up for COPD exacerbation. The patient reports continued shortness of breath and wheezing overnight. She became dyspneic just ambulating to the bathroom without oxygen today. She reports continued intractable cough. She also has constant anterior chest pain worse with coughing. Requesting pain medication for the chest pain. No documented fevers overnight. She is hoping to have a home when she gets her check in the beginning of September however until then she is hoping to stay with a friend. Objective Vitals Vital Signs Date Time Temp Pulse Resp B/P Pulse Ox O2 Delivery O2 Flow Rate FiO2 08/21/16 09:55 97 Nasal Cannula 3.00 08/21/16 07:28 98.6 90 16 100/53 99 08/21/16 05:17 92 20 119/72 96 Nasal Cannula 3 08/21/16 00:20 20 Nasal Cannula 08/21/16 00:20 96 Nasal Cannula 4.00 08/21/16 00:20 97 Nasal Cannula 4 08/21/16 00:00 123 22 93 Nasal Cannula 4 08/20/16 23:57 99.2 124 22 213/89 97 Result Diagram: 08/21/16 0010 08/21/16 0010 Imaging 08/21/16 - CXR shows hyperaeration again noted indicating emphysema, no acute cardiopulmonary disease identified. Objective Remarks GENERAL: Well-nourished, well-developed then middle aged female patient in [facility]. SKIN: Warm and dry. No rash. HEENT: Normocephalic. Atraumatic. Pupils equal and round. No scleral icterus. No injection or drainage. Mucous membranes pink and moist. NECK: Supple. Trachea midline. CARDIOVASCULAR: Tachycardic, regular rhythm. S1, S2 noted. No murmur appreciated. RESPIRATORY: No accessory muscle use. Decreased breath sounds throughout, no wheezing. Breath sounds equal bilaterally. GASTROINTESTINAL: Abdomen soft, non-tender, nondistended. Normoactive bowel sounds x4. MUSCULOSKELETAL: No obvious deformities. Extremities without clubbing, cyanosis , or edema. NEUROLOGICAL: Awake and alert. No obvious cranial nerve deficits. Motor grossly within normal limits. 5/5 muscle strength in bilateral upper and lower extremities. Normal speech. PSYCHIATRIC: Appropriate mood and affect; insight and judgment normal. Medications and IVs Current Medications Medications (Trade) Dose Ordered Sig/Isadora Route Start Time Stop Time Status Last Admin (NS Flush) 2 ml BID IVF 3/13/17 09:00 08/21/16 09:05 (NS Flush) 2 ml UNSCH PRN IVF 08/21/16 03:00 (SoluMEDROL INJ) 60 mg Q6H IVP 08/21/16 03:00 08/21/16 09:05 (Zithromax) 500 mg Q24H PO 08/21/16 22:00 08/23/16 22:01 (Heparin Inj) 5,000 units Q8H SQ 08/21/16 03:00 08/21/16 10:56 (Symbicort 80-4.5 Mcg Inh) 1 puff Q12HR INH 08/21/16 09:00 08/21/16 09:05 (Synthroid) 75 mcg DAILY@0600 PO 08/21/16 06:00 08/21/16 06:26 (Tylenol) 650 mg Q4H PRN PO 08/21/16 10:30 (Zofran Inj) 4 mg Q6H PRN IV 08/21/16 10:30 (Rima-Colace) 1 tab BID PRN PO 08/21/16 10:30 (Milk Of Magnesia Liq) 30 ml DAILY PRN PO 08/21/16 10:30 (Mag-Al Plus Susp Liq) 30 ml Q6H PRN PO 08/21/16 10:30 08/21/16 10:55 (Tums Chew) 1,000 mg TID PRN CHEW 08/21/16 10:30 Urinary Catheter: No Vascular Central Line Catheter: No A/P Problem List: (1) COPD exacerbation ICD Code: J44.1 Status: Acute (2) Hyponatremia ICD Code: E87.1 Status: Acute (3) Leukocytosis ICD Code: D72.829 Status: Acute Assessment and Plan 50-year-old currently homeless female with history of COPD, HTN, CHF, hypothyroidism, presents with worsening shortness of breath over the past few days Acute Hypoxic Respiratory Failure secondary to COPD exacerbation: Per EMS, O2 sats ~50% upon their arrival, tachycardic, tachypneic, given Duonebs en route, presented to the ER on 6L NC with O2 sat 97%. CXR images reviewed by me, shows emphysematous changes but no acute infiltrate. Continue IV Solu-medrol 60mg q6h , Duonebs q6h and Albuterol nebs q2h prn. Continue Symbicort. O2 as needed. Azithromycin 500mg po qd x3days. Sepsis: +leukocytosis WBC 19.3, tachycardia HR 124. Possible early pneumonia, on Azithro. Monitor vitals. Afebrile. Suspect worsening leukocytosis with steroids. Monitor for fevers. Pleuritic Chest Pain: secondary to intractable coughing. Robitussin prn. [place] prn. Hypertension: Not on meds. BP fairly well controlled. Monitor BP, add antihypertensives as needed. Hypothyroidism: chronic, continue patient's levothyroxine. DVT Prophylaxis: teds/SCDs Written by Kim Cheung, acting as scribe for Dr. Graham on 08/21/16 at 11: 00. All or portions of this note were transcribed by scribe []. I, Dr. Gian Graham personally performed the history, physical exam, and medical decision making; and confirmed the accuracy of the information in the transcribed note. Authenticated by Dr. Gian Graham on 08/21/16 at 16:42. Kim Cheung PA-C Aug 21, 2016 11:01 Gian Graham MD Aug 21, 2016 16:42
[2016-08-21] MEDS: ACETAMINOPHEN/HYDROcodone 325 MG/5 MG TAB PO PRN ×2 (12:14→18:08)
[2016-08-21] MEDS ORDERED: guaiFENesin/DEXTROMETHORPHAN 200 MG/20 MG/10 ML CUP PO PRN (12:15)
--- NOTE | 2016-08-21 15:01 | EKG ---
Date Performed: 08/21/2016 Time Performed: 07:42:32 PTAGE: 50 years EKG: Sinus rhythm NORMAL ECG Compared to prior tracing no significant change PREVIOUS TRACING : 08/21/2016 00.01.17 DOCTOR: Kaela Quiñones Interpretating Date/Time 08/21/2016 14:54:00
--- NOTE | 2016-08-21 15:42 | EKG ---
Date Performed: 08/21/2016 Time Performed: 00:01:17 PTAGE: 50 years EKG: SINUS TACHYCARDIA ABNORMAL RHYTHM ECG Compared to PREVIOUS TRACING the sinus tachycardia is new. There has been increased peaking of the T waves which is probably rate related but hyperkalemia should be excluded. PREVIOUS TRACIN07/26/16 DOCTOR: Kaela Quiñones Interpretating Date/Time 08/21/2016 15:41:04
[2016-08-21] MEDS: AZITHROMYCIN 250 MG TAB PO SCH (21:16)
[2016-08-22] VITALS (9 sets, daily range): BP systolic 110–141; BP diastolic 54–69; PULSE 86–112; RESP 16–20; TEMP 97.2–98.8; O2SAT 92–96
[2016-08-22] MEDS: ACETAMINOPHEN/HYDROcodone 325 MG/5 MG TAB PO PRN ×4 (00:11→18:12)
[2016-08-22] MEDS: methylPREDNISolone SOD SUCC 125 MG/2 ML VIAL IVP SCH ×4 (03:47→21:40)
[2016-08-22] MEDS: HEPARIN SODIUM - SQ 10,000 UNITS/ML VIAL SQ SCH ×3 (03:47→18:12)
[2016-08-22] MEDS: SODIUM CHLORIDE 0.9% FLUSH 5 ML FLUSH IVF PRN (03:48)
[2016-08-22] MEDS: RESP: ALBUTEROL 2.5 MG/IPRATROPIUM 0.5 MG NEB (SCH) INH ×4 (03:58→21:26)
[2016-08-22] MEDS: LEVOTHYROXINE SODIUM 75 MCG TAB PO SCH (04:47)
[2016-08-22 06:18] LABS: AUTOMATED NEUTROPHIL # 22.8 TH/MM3 (1.8-7.7); HEMATOCRIT 36.9 % (35.0-46.0); HEMO FLAGS DIFF FINAL; LYMPH % 2.5 % (9.0-44.0); LYMPHOCYTE # 0.6 TH/MM3 (1.0-4.8); MEAN CELL VOLUME 87.9 FL (80.0-100.0); MEAN CORPUSCULAR HEMOGLOBIN 29.3 PG (27.0-34.0); MEAN CORPUSCULAR HGB CONC 33.3 % (32.0-36.0); MONO % 1.9 % (0.0-8.0); NEUT % 95.6 % (16.0-70.0); PLATELET COUNT 349 TH/MM3 (150-450); RED BLOOD COUNT 4.19 MIL/MM3 (4.00-5.30); RED CELL DISTRIBUTION WIDTH 16.1 % (11.6-17.2); WHITE BLOOD COUNT 23.9 TH/MM3 (4.0-11.0)
[2016-08-22 06:43] LABS: BICARBONATE 31.9 MEQ/L (21.0-32.0); POTASSIUM 4.6 MEQ/L (3.5-5.1)
[2016-08-22] MEDS: BUDESONIDE-FORMOTEROL 80/4.5 MCG INHALER INH SCH ×2 (08:55→21:39)
[2016-08-22] MEDS: SODIUM CHLORIDE 0.9% FLUSH 5 ML FLUSH IVF SCH ×2 (08:56→21:40)
[2016-08-22] MEDS ORDERED: DEXTROSE 50% IN WATER 50 ML VIAL(D50) IV PUSH PRN (10:00)
[2016-08-22] MEDS ORDERED: GLUCAGON 1 MG/ML VIAL OTHER PRN (10:00)
[2016-08-22] MEDS: INSULIN ASPART SUPPLEMENTAL SCALE SQ SCH ×3 (12:04→21:00)
--- NOTE | 2016-08-22 14:10 | HHI.PR ---
Subjective Remarks Follow-up COPD. States her breathing was worse earlier. On 2 L nasal cannula. Discussed with RN Objective Vitals Vital Signs Date Time Temp Pulse Resp B/P Pulse Ox O2 Delivery O2 Flow Rate FiO2 08/22/16 12:00 97.2 112 18 110/54 94 08/22/16 09:36 96 Nasal Cannula 2.00 08/22/16 08:00 97.8 105 18 121/69 92 08/22/16 04:00 97.5 86 17 119/57 96 08/22/16 00:00 97.6 95 16 121/59 95 08/21/16 21:36 95 Nasal Cannula 2.00 08/21/16 20:00 97.8 106 16 133/69 95 08/21/16 16:00 96.3 104 22 137/67 95 08/21/16 14:20 96.2 114 25 144/67 96 I/O 08/21/16 08/21/16 08/21/16 08/22/16 08/22/16 08/22/16 07:00 15:00 23:00 07:00 15:00 23:00 Intake Total 600 ml 240 ml Balance 600 ml 240 ml Intake Oral 600 ml 240 ml # Voids 4 1 Result Diagram: 08/22/16 0533 08/22/16 0533 Imaging Last Impressions Chest X-Ray 08/21/16 0006 Signed Impressions: Service Date/Time: Sunday, August 21, 2016 00:45 - CONCLUSION: Hyperaeration again noted indicating emphysema. No acute cardiopulmonary disease identified. Kolby Rocha MD Objective Remarks GENERAL: Well-developed, well-nourished in no distress SKIN: Warm and dry. HEAD: Atraumatic. Normocephalic. EYES: Pupils equal and round. No scleral icterus. No injection or drainage. ENT: No nasal bleeding or discharge. Mucous membranes pink and moist. NECK: Trachea midline. No JVD. CARDIOVASCULAR: Regular rate and rhythm. RESPIRATORY: No accessory muscle use. Clear to auscultation. Decreased Breath sounds equal bilaterally. GASTROINTESTINAL: Abdomen soft, non-tender, nondistended. MUSCULOSKELETAL: Extremities without clubbing, cyanosis, or edema. No obvious deformities. NEUROLOGICAL: Awake and alert. No obvious cranial nerve deficits. Motor grossly within normal limits. Five out of 5 muscle strength in the arms and legs. Normal speech. PSYCHIATRIC: Appropriate mood and affect; insight and judgment normal. Procedures none A/P Problem List: (1) COPD exacerbation ICD Code: J44.1 Status: Acute (2) Hyponatremia ICD Code: E87.1 Status: Acute (3) Leukocytosis ICD Code: D72.829 Status: Acute Assessment and Plan 50-year-old currently homeless female with history of COPD, HTN, CHF, hypothyroidism, presents with worsening shortness of breath over the past few days Acute Hypoxic on chronic Respiratory Failure secondary to COPD exacerbation: Per EMS, O2 sats ~50% upon their arrival, tachycardic, tachypneic, given Duonebs en route, presented to the ER on 6L NC with O2 sat 97%. CXR images reviewed by me, shows emphysematous changes but no acute infiltrate. Significant dyspnea on exertion. Continue IV Solu-medrol 60mg q6h, Duonebs q6h and Albuterol nebs q2h prn. Continue Symbicort. O2 as needed. Azithromycin 500mg po qd x3days. Sepsis: +leukocytosis WBC 19.3, tachycardia HR 124. Possible early pneumonia versus acute bronchitis, on Azithro. Monitor vitals. Afebrile. Suspect worsening leukocytosis with steroids. Monitor for fevers. Pleuritic Chest Pain: secondary to intractable coughing. Robitussin prn. [place] prn. Hypertension: Not on meds. BP fairly well controlled. Monitor BP, add antihypertensives as needed. Hypothyroidism: chronic, continue patient's levothyroxine. Hyperglycemia likely secondary to steroids. Monitor fingersticks with sliding scale coverage DVT Prophylaxis: teds/SCDs Discharge Planning Patient not ready for discharge Gian Graham MD Aug 22, 2016 14:10
[2016-08-22] MEDS: AZITHROMYCIN 250 MG TAB PO SCH (21:41)
[2016-08-23] VITALS (7 sets, daily range): BP systolic 102–159; BP diastolic 73–96; PULSE 89–109; RESP 16–20; TEMP 97.5–99.4; O2SAT 92–99
[2016-08-23] MEDS: ACETAMINOPHEN/HYDROcodone 325 MG/5 MG TAB PO PRN ×4 (01:16→21:04)
[2016-08-23] MEDS: HEPARIN SODIUM - SQ 10,000 UNITS/ML VIAL SQ SCH ×3 (01:17→17:10)
[2016-08-23] MEDS: SODIUM CHLORIDE 0.9% FLUSH 5 ML FLUSH IVF PRN (01:17)
[2016-08-23] MEDS: methylPREDNISolone SOD SUCC 125 MG/2 ML VIAL IVP SCH ×4 (01:17→21:03)
[2016-08-23] MEDS: RESP: ALBUTEROL 2.5 MG/IPRATROPIUM 0.5 MG NEB (SCH) INH ×4 (04:37→22:06)
[2016-08-23] MEDS: LEVOTHYROXINE SODIUM 75 MCG TAB PO SCH (05:52)
[2016-08-23] MEDS: INSULIN ASPART SUPPLEMENTAL SCALE SQ SCH ×4 (05:54→20:54)
[2016-08-23] MEDS: BUDESONIDE-FORMOTEROL 80/4.5 MCG INHALER INH SCH ×2 (07:50→20:56)
[2016-08-23] MEDS: SODIUM CHLORIDE 0.9% FLUSH 5 ML FLUSH IVF SCH ×2 (07:50→20:56)
[2016-08-23 10:00] LABS: BICARBONATE 31.6 MEQ/L (21.0-32.0); POTASSIUM 4.6 MEQ/L (3.5-5.1)
[2016-08-23 11:56] LABS: MEAN CELL VOLUME 87.8 FL (80.0-100.0); PLATELET COUNT 402 TH/MM3 (150-450); RED BLOOD COUNT 4.33 MIL/MM3 (4.00-5.30); RED CELL DISTRIBUTION WIDTH 15.8 % (11.6-17.2); WHITE BLOOD COUNT 20.7 TH/MM3 (4.0-11.0)
[2016-08-23 12:00] LABS: HEMO FLAGS AUTO DIFF
[2016-08-23 13:18] LABS: NEUTROPHIL # MANUAL DIFF 19.7 TH/MM3 (1.8-7.7); POLYS (SEG NEUTROPHILS) 95 % (16-70); WBC DIFF SAMPLE 100
[2016-08-23 13:20] LABS: TOXIC VACUOLATION PRESENT (NONE SEEN)
[2016-08-23 13:21] LABS: SCAN/DIFF FINAL DIFF MANUAL
--- NOTE | 2016-08-23 15:23 | HHI.PR ---
Subjective Remarks Seen manager basketball today. Patient still with wheezing. She also reports chest congestion and says she is not getting better. Says she has been intubated 2x in the past ( 10 years ago) Says she doesn't have a pulm doctor. Says COPD is worsening. No fevers or chills. Says no much cough. Feels sob and has wheezing. Objective Vitals Vital Signs Date Time Temp Pulse Resp B/P Pulse Ox O2 Delivery O2 Flow Rate FiO2 08/23/16 12:00 97.9 104 16 143/86 99 08/23/16 09:56 2.00 08/23/16 08:23 92 21 08/23/16 08:00 97.7 96 16 140/81 95 08/23/16 00:00 99.4 89 20 102/73 93 08/22/16 21:26 94 Nasal Cannula 2.00 08/22/16 20:00 98.5 96 20 141/60 96 08/22/16 16:00 98.8 107 18 110/54 93 I/O 08/22/16 08/22/16 08/22/16 08/23/16 08/23/16 08/23/16 07:00 15:00 23:00 07:00 15:00 23:00 Intake Total 240 ml 480 ml 280 ml 400 ml Balance 240 ml 480 ml 280 ml 400 ml Intake Oral 240 ml 480 ml 280 ml 400 ml IV Total 0 ml # Voids 1 3 2 2 # Bowel Movements 0 0 Result Diagram: 08/23/16 1137 08/23/16 0915 Imaging Last Impressions Chest X-Ray 08/21/16 0006 Signed Impressions: Service Date/Time: Sunday, August 21, 2016 00:45 - CONCLUSION: Hyperaeration again noted indicating emphysema. No acute cardiopulmonary disease identified. Kolby Rocha MD Objective Remarks GENERAL: Well-developed, well-nourished in no distress SKIN: Warm and dry. HEAD: Atraumatic. Normocephalic. EYES: Pupils equal and round. No scleral icterus. No injection or drainage. ENT: No nasal bleeding or discharge. Mucous membranes pink and moist. NECK: Trachea midline. No JVD. CARDIOVASCULAR: Regular rate and rhythm. RESPIRATORY: No accessory muscle use. Clear to auscultation. Decreased Breath sounds equal bilaterally. GASTROINTESTINAL: Abdomen soft, non-tender, nondistended. MUSCULOSKELETAL: Extremities without clubbing, cyanosis, or edema. No obvious deformities. NEUROLOGICAL: Awake and alert. No obvious cranial nerve deficits. Motor grossly within normal limits. Five out of 5 muscle strength in the arms and legs. Normal speech. PSYCHIATRIC: Appropriate mood and affect; insight and judgment normal. Procedures none A/P Problem List: (1) COPD exacerbation ICD Code: J44.1 Status: Acute (2) Hyponatremia ICD Code: E87.1 Status: Acute (3) Leukocytosis ICD Code: D72.829 Status: Acute Assessment and Plan 50-year-old currently homeless female with history of COPD, HTN, CHF, hypothyroidism, presents with worsening shortness of breath over the past few days Acute Hypoxic on chronic Respiratory Failure secondary to COPD exacerbation: Per EMS, O2 sats ~50% upon their arrival, tachycardic, tachypneic, given Duonebs en route, presented to the ER on 6L NC with O2 sat 97%. CXR images reviewed by me, shows emphysematous changes but no acute infiltrate. Significant dyspnea on exertion. Continue IV Solu-medrol 60mg q6h, Duonebs q6h and Albuterol nebs q2h prn. Continue Symbicort. O2 as needed. Azithromycin 500mg po qd x3days. Sepsis: +leukocytosis WBC 19.3, tachycardia HR 124. Possible early pneumonia versus acute bronchitis, on Azithro. Monitor vitals. Afebrile. Suspect worsening leukocytosis with steroids. Monitor for fevers. Patient with persistent leukocytosis however might be 2/2 steroid use, and tachycardia 2/2 albuterol use. Check pneumococcal Ag, legionella ag. Ibflu A/B negative Will consult pulm as patient doesn't have a pulm Pleuritic Chest Pain: secondary to intractable coughing. Robitussin prn. [place] prn. Hypertension: Not on meds. BP fairly well controlled. Monitor BP, add antihypertensives as needed. Hypothyroidism: chronic, continue patient's levothyroxine. Hyperglycemia likely secondary to steroids. Monitor fingersticks with sliding scale coverage DVT Prophylaxis: teds/SCDs Discharge Planning Patient not ready for discharge Raven Meneses MD Aug 23, 2016 15:23
[2016-08-23 16:22] LABS: HEMOGLOBIN A1b 1.6 %; HEMOGLOBIN Ao 85.3 %; HEMOGLOBIN LA1C 2.1 %; HEMOGLOBIN P3 3.9 %
[2016-08-23] MEDS: guaiFENesin E.R. 600 MG TAB PO SCH (21:04)
[2016-08-23] MEDS: AZITHROMYCIN 250 MG TAB PO SCH (21:04)
[2016-08-23 23:27] LABS: BACTERIA, URINE OCC /hpf; BLOOD, URINE NEG (NEG); COMMENT (UR) CULTURE INDICATED; CULTURE IF INDICATED CULTURE INDICATED; GLUCOSE,URINE NEG (NEG); KETONE, URINE NEG (NEG); MUCUS URINE FEW /lpf (OCC); NITRITE,URINE NEG (NEG); PH, URINE 7.5 (5.0-8.5); SQUAMOUS EPITHELIAL CELL URINE 2 /hpf (0-5); URINE COLOR LIGHT-YELLOW (YELLW/STRAW)
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
[2016-08-24] VITALS (10 sets, daily range): BP systolic 129–192; BP diastolic 74–119; PULSE 90–115; RESP 18–20; TEMP 97.1–98.7; O2SAT 96–100
[2016-08-24] MEDS: HEPARIN SODIUM - SQ 10,000 UNITS/ML VIAL SQ SCH ×3 (03:00→18:39)
[2016-08-24] MEDS: methylPREDNISolone SOD SUCC 125 MG/2 ML VIAL IVP SCH ×2 (03:01→09:08)
[2016-08-24] MEDS: ACETAMINOPHEN/HYDROcodone 325 MG/5 MG TAB PO PRN ×3 (03:01→15:24)
[2016-08-24] MEDS: RESP: ALBUTEROL 2.5 MG/IPRATROPIUM 0.5 MG NEB (SCH) INH ×3 (03:42→15:25)
[2016-08-24] MEDS: INSULIN ASPART SUPPLEMENTAL SCALE SQ SCH ×3 (06:16→15:27)
[2016-08-24] MEDS: LEVOTHYROXINE SODIUM 75 MCG TAB PO SCH (06:19)
[2016-08-24] MEDS ORDERED: MUCI600T PO (08:26)
[2016-08-24] MEDS ORDERED: PRED10PA PO (08:26)
[2016-08-24] MEDS ORDERED: LEVO75TA3 PO (08:26)
[2016-08-24] MEDS ORDERED: SYMB80AE INH (08:26)
[2016-08-24] MEDS ORDERED: ALBU0.08 NEB (08:26)
[2016-08-24] MEDS ORDERED: VENTAER INH (08:26)
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
[2016-08-24] MEDS ORDERED: OXYGENTANK NAS.CANULA (08:28)
[2016-08-24] MEDS: BUDESONIDE-FORMOTEROL 80/4.5 MCG INHALER INH SCH (09:07)
[2016-08-24] MEDS: SODIUM CHLORIDE 0.9% FLUSH 5 ML FLUSH IVF SCH (09:08)
[2016-08-24] MEDS: guaiFENesin E.R. 600 MG TAB PO SCH (09:08)
--- NOTE | 2016-08-24 11:38 | HHI.PR ---
Subjective Remarks Feels improved. She is still sob. No much cough. Feels very tired. No n/v/d/c. Objective Vitals Vital Signs Date Time Temp Pulse Resp B/P Pulse Ox O2 Delivery O2 Flow Rate FiO2 08/24/16 08:00 97.8 90 20 164/98 100 08/24/16 07:45 100 Nasal Cannula 2.00 08/24/16 04:01 18 08/24/16 04:00 98.7 95 18 129/74 96 08/24/16 00:00 98.7 110 20 155/97 96 08/23/16 22:06 95 Nasal Cannula 2.00 08/23/16 20:00 97.5 102 20 159/88 97 08/23/16 16:00 98.1 109 16 155/96 93 08/23/16 12:00 97.9 104 16 143/86 99 I/O 08/23/16 08/23/16 08/23/16 08/24/16 08/24/16 08/24/16 07:00 15:00 23:00 07:00 15:00 23:00 Intake Total 400 ml 960 ml 400 ml 360 ml Balance 400 ml 960 ml 400 ml 360 ml Intake Oral 400 ml 960 ml 400 ml 360 ml # Voids 2 3 2 3 # Bowel Movements 0 2 Result Diagram: 08/23/16 1137 08/23/16 0915 Imaging Last Impressions Chest X-Ray 08/21/16 0006 Signed Impressions: Service Date/Time: Sunday, August 21, 2016 00:45 - CONCLUSION: Hyperaeration again noted indicating emphysema. No acute cardiopulmonary disease identified. Kolby Rocha MD Objective Remarks GENERAL: Well-developed, well-nourished in no distress SKIN: Warm and dry. HEAD: Atraumatic. Normocephalic. EYES: Pupils equal and round. No scleral icterus. No injection or drainage. ENT: No nasal bleeding or discharge. Mucous membranes pink and moist. NECK: Trachea midline. No JVD. CARDIOVASCULAR: Regular rate and rhythm. RESPIRATORY: No accessory muscle use. Clear to auscultation. Decreased Breath sounds equal bilaterally. GASTROINTESTINAL: Abdomen soft, non-tender, nondistended. MUSCULOSKELETAL: Extremities without clubbing, cyanosis, or edema. No obvious deformities. NEUROLOGICAL: Awake and alert. No obvious cranial nerve deficits. Motor grossly within normal limits. Five out of 5 muscle strength in the arms and legs. Normal speech. PSYCHIATRIC: Appropriate mood and affect; insight and judgment normal. Procedures none A/P Problem List: (1) COPD exacerbation ICD Code: J44.1 Status: Acute (2) Hyponatremia ICD Code: E87.1 Status: Acute (3) Leukocytosis ICD Code: D72.829 Status: Acute Assessment and Plan 50-year-old currently homeless female with history of COPD, HTN, CHF, hypothyroidism, presents with worsening shortness of breath over the past few days Acute Hypoxic on chronic Respiratory Failure secondary to COPD exacerbation: Per EMS, O2 sats ~50% upon their arrival, tachycardic, tachypneic, given Duonebs en route, presented to the ER on 6L NC with O2 sat 97%. CXR images reviewed by me, shows emphysematous changes but no acute infiltrate. Significant dyspnea on exertion. Continue IV Solu-medrol 60mg q6h, Duonebs q6h and Albuterol nebs q2h prn. Continue Symbicort. O2 as needed. Azithromycin 500mg po qd x3days. Sepsis: +leukocytosis WBC 19.3, tachycardia HR 124. Possible early pneumonia versus acute bronchitis, on Azithro. Monitor vitals. Afebrile. Suspect worsening leukocytosis with steroids. Monitor for fevers. Patient with persistent leukocytosis however might be 2/2 steroid use, and tachycardia 2/2 albuterol use. Check pneumococcal Ag, legionella ag. neg Influ A/B negative Consult pulm as patient doesn't have a pulm Pleuritic Chest Pain: secondary to intractable coughing. Robitussin prn. [place] prn. Hypertension: Not on meds. BP fairly well controlled. Monitor BP, add antihypertensives as needed. Hypothyroidism: chronic, continue patient's levothyroxine. Hyperglycemia likely secondary to steroids. Monitor fingersticks with sliding scale coverage DVT Prophylaxis: teds/SCDs Discharge Planning Patient not ready for discharge Raven Meneses MD Aug 24, 2016 11:38
[2016-08-24] MEDS ORDERED: NORC5TAB PO (14:11)
[2016-08-24] MEDS ORDERED: methylPREDNISolone SOD SUCC 125 MG/2 ML VIAL IVP SCH (17:00)
[2016-08-24] MEDS ORDERED: ENALAPRILAT 1.25 MG/ML VIAL IV PUSH ONE (18:00)
--- NOTE | 2016-08-24 18:12 | HHI.PR ---
Subjective Remarks 50 YOWF, homelesss, with COPD On 02 3LNC Still has sob Wheezing improved no CP Objective Vital Signs Vital Signs Date Time Temp Pulse Resp B/P Pulse Ox O2 Delivery O2 Flow Rate FiO2 08/24/16 17:30 192/119 165/110 08/24/16 16:00 97.3 115 20 175/106 97 160/111 08/24/16 12:00 98.2 105 20 176/104 98 08/24/16 08:00 97.8 90 20 164/98 100 08/24/16 07:45 100 Nasal Cannula 2.00 08/24/16 04:01 18 08/24/16 04:00 98.7 95 18 129/74 96 08/24/16 00:00 98.7 110 20 155/97 96 08/23/16 22:06 95 Nasal Cannula 2.00 08/23/16 20:00 97.5 102 20 159/88 97 I/O 08/23/16 08/23/16 08/23/16 08/24/16 08/24/16 08/24/16 07:00 15:00 23:00 07:00 15:00 23:00 Intake Total 400 ml 960 ml 400 ml 360 ml 0 ml Balance 400 ml 960 ml 400 ml 360 ml 0 ml Intake Oral 400 ml 960 ml 400 ml 360 ml IV Total 0 ml # Voids 2 3 2 3 # Bowel Movements 0 2 Result Diagram: 08/23/16 1137 08/23/16 0915 Objective Remarks GENERAL: Thin built WF, mild sob SKIN: Warm and dry. HEAD: Normocephalic. EYES: No scleral icterus. No injection or drainage. NECK: Supple, trachea midline. No JVD or lymphadenopathy. CARDIOVASCULAR: Regular rate and rhythm without murmurs, gallops, or rubs. RESPIRATORY: Breath sounds equal bilaterally. No accessory muscle use. Hyper resonant chest, few rhonchi GASTROINTESTINAL: Abdomen soft, non-tender, nondistended. MUSCULOSKELETAL: No cyanosis, or edema. BACK: Nontender without obvious deformity. No CVA tenderness. A/P Assessment and Plan COPD exac Bronchitis leucocytosis pt is home less PLAN: DC Solumedrol pred 10 mg tid Aerosol nebs DVT proph PFT Cruz Chawla MD Aug 24, 2016 18:12
[2016-08-24] MEDS ORDERED: LISI-519 PO (18:48)
[2016-08-24] MEDS ORDERED: LISINOPRIL 5 MG TAB PO ONE (19:00)
[2016-08-24] MEDS ORDERED: hydrALAZINE HCL 25 MG TAB PO ONE (19:00)
[2016-08-24] MEDS ORDERED: RESP: ALBUTEROL 2.5 MG/IPRATROPIUM 0.5 MG NEB (PRN) NEB (19:00)
[2016-08-25] MEDS ORDERED: predniSONE 10 MG TAB PO SCH (09:00)
[2016-08-25] MEDS ORDERED: LISINOPRIL 5 MG TAB PO SCH (09:00)
--- NOTE | 2016-08-31 19:47 | PQ ---
Physician Query Response Document PATIENT: FRANCISCO TRUONG : 1965 ADMIT DATE: 08/21/2016 3:01 AM DISCH DATE: 08/24/2016 8:52 PM RESPONDING PROVIDER #: [email or web address] QUERY TEXT: Clarification of Clinical Diagnostic Findings Please clarify documentation or clinical relevance for the clinical / diagnostic findings or whether those are insignificant or unable to be further specified. If you have any additional questions/comments and/or concerns, please do not hesitate to reach out to the CDI/Coding Hotline, Ext. [phone]. The patient's Clinical Indicators include: Order placed 08/23/[address] Meneses. Culture was indicated. Final culture results on 08/25/16 (received after discharge) grew Escherichia Coli. Patient was on azithromycin for COPD/bro nchitis. Query created by: Georgina Ng on 08/28/2016 9:41 AM RESPONSE TEXT: Patient received IV abx ceftriaxone and azithro while inpatient, and she was asymptomatic. Need to re peat Urine cultures by her PCP as OP. Electronically signed by: Raven Meneses MD 08/31/2016 7:42 PM
[2016-08-31] MEDS ORDERED: CIPR250T2 PO (19:51)
--- NOTE | 2016-08-31 19:56 | HHI.PR ---
Addendum to Inpatient Note Addendum Reason: Additional Documentation Additional Information additional documentation: Written prescription for UTI E coli and sent to patient pharmacy. patient was not treated with ceftriaxone as inpatient,. ans she was treated only with azithromycin. She was noted with urine cultures positive for E coli, asymptomatic UTI. Her main symptoms were pulm symptoms. Cultures back with E coli, sent antibiotic to pharmacy listed Raven Meneses MD Aug 31, 2016 19:56
--- NOTE | 2016-09-01 19:44 | HHI.DS ---
Discharge Summary Admission Date Aug 21, 2016 at 03:01 Discharge Date: Aug 24, 2016 Admitting Diagnosis COPD exacerbation (1) COPD exacerbation ICD Code: J44.1 Diagnosis: Principal (2) Hyponatremia ICD Code: E87.1 Diagnosis: Principal (3) Leukocytosis ICD Code: D72.829 Diagnosis: Principal Procedures none Brief History - From Admission The patient is a 50-year-old female with history of COPD who presented to the emergency department with worsening shortness of breath over the last few days. She reports chest discomfort that is associated with cough. She states that her cough is nonproductive. Denies fever, chills, night sweats. Has had nausea, but no vomiting. She is supposed to be on oxygen at home, but has been homeless and unable to obtain the oxygen. Imaging Last Impressions Chest X-Ray 08/21/16 0006 Signed Impressions: Service Date/Time: Sunday, August 21, 2016 00:45 - CONCLUSION: Hyperaeration again noted indicating emphysema. No acute cardiopulmonary disease identified. Kolby Rocha MD PE at Discharge GENERAL: Well-developed, well-nourished in no distress SKIN: Warm and dry. HEAD: Atraumatic. Normocephalic. EYES: Pupils equal and round. No scleral icterus. No injection or drainage. ENT: No nasal bleeding or discharge. Mucous membranes pink and moist. NECK: Trachea midline. No JVD. CARDIOVASCULAR: Regular rate and rhythm. RESPIRATORY: No accessory muscle use. Clear to auscultation. Decreased Breath sounds equal bilaterally. GASTROINTESTINAL: Abdomen soft, non-tender, nondistended. MUSCULOSKELETAL: Extremities without clubbing, cyanosis, or edema. No obvious deformities. NEUROLOGICAL: Awake and alert. No obvious cranial nerve deficits. Motor grossly within normal limits. Five out of 5 muscle strength in the arms and legs. Normal speech. PSYCHIATRIC: Appropriate mood and affect; insight and judgment normal. Hospital Course 50-year-old currently homeless female with history of COPD, HTN, CHF, hypothyroidism, presents with worsening shortness of breath over the past few days Acute Hypoxic on chronic Respiratory Failure secondary to COPD exacerbation: Per EMS, O2 sats ~50% upon their arrival, tachycardic, tachypneic, given Duonebs en route, presented to the ER on 6L NC with O2 sat 97%. CXR images reviewed by me, shows emphysematous changes but no acute infiltrate. Significant dyspnea on exertion. Continue IV Solu-medrol 60mg q6h, Duonebs q6h and Albuterol nebs q2h prn. Continue Symbicort. O2 as needed. Azithromycin 500mg po qd x3days. Sepsis: +leukocytosis WBC 19.3, tachycardia HR 124. Possible early pneumonia versus acute bronchitis, on Azithro. Monitor vitals. Afebrile. Suspect worsening leukocytosis with steroids. Monitor for fevers. Patient with persistent leukocytosis however might be 2/2 steroid use, and tachycardia 2/2 albuterol use. Check pneumococcal Ag, legionella ag. neg Influ A/B negative Consult pulm as patient doesn't have a pulm doctor. Patient weaned off steroids and changed to PO. Patient was evaluated by pulm, she is with severe COPD and also homeless. Discussed with pulm and case management patient need placement to SNF. Patient did not have any urinary symptoms however due to leukocytosis noted UA was checked and urine cultures. Patient was DC to SNF . However UA.U cx with E coli sent abx to the pharmacy listed. Patient to follow up with PCP as well. Pleuritic Chest Pain: secondary to intractable coughing. Robitussin prn. [place] prn. Hypertension: Not on meds. BP fairly well controlled. Monitor BP, add antihypertensives as needed. Hypothyroidism: chronic, continue patient's levothyroxine. Hyperglycemia likely secondary to steroids. Monitor fingersticks with sliding scale coverage DVT Prophylaxis: teds/SCDs Improved., CM involved in DC plan as patient homeless and with severe COPD requiring O2. Patient improved and was DC to SNF in fairly stable condition . To followup as OP with PCP and consultants. Pt Condition on Discharge: Stable Discharge Disposition: Discharge to SNF Discharge Time: > 30 minutes Discharge Instructions DIET: Follow Instructions for: Heart Healthy Diet Activities you can perform: Regular-No Restrictions Follow up Referrals: PCP Follow-up - 3-5 Days Pulmonology - 2 Weeks New Medications: Ciprofloxacin (Ciprofloxacin) 250 Mg Tab 250 MG PO BID Infection #14 Ref 0 TAB Hydrocodone-Acetaminophen ([place]) 5-325 mg Tab 1 TAB PO Q8HR PRN PAIN #7 Ref 0 TAB Lisinopril (Lisinopril) 5 Mg Tab 5 MG PO DAILY Blood Pressure Management #30 Ref 0 TAB Oxygen tank (Oxygen tank) 1 Ea Tank 2 LITER CHRISTIANA.CANULA CONTINUOUS Oxygen Concentrator Portable Gaseous 2 L/min via Nasal Cannula Continuous For 99 months HYPOXEMIA PREVENTION #2 CYLINDER Prednisone (21) 10 mg tab Dose Pack (Prednisone (21) 10 mg tab Dose Pack) 10 Mg Pack 10 MG PO DIRECTED Inflammation #1 Ref 0 DSPK Guaifenesin ER 12 HR (Mucinex ER 12 HR) 600 Mg [place] 600 MG PO BID cough #14 TAB Continued Medications: Albuterol 18 GM Inh (Ventolin Hfa 18 GM Inh) 90 Mcg/Act Aer 2 PUFF INH Q4-6H PRN SHORTNESS OF BREATH #1 Ref 0 INHALER (This prescription has been renewed) Albuterol Neb (Albuterol Neb) 2.5 Mg/3 Ml Neb 2.5 MG NEB Q4HR NEB While awake Breathing Treatment #60 Ref 0 NEBULE (This prescription has been renewed) Budesonide-Formoterol Inh (Symbicort Inh) 80-4.5 Mcg/Act Aero 1 PUFF INH Q12HR Asthma Management #1 Ref 0 INHALER (This prescription has been renewed) Levothyroxine (Levothyroxine) 75 Mcg Tab 75 MCG PO DAILY Thyroid #30 Ref 0 TAB (This prescription has been renewed) Raven Meneses MD Sep 01, 2016 19:44
== END 2016-08-24 20:52 | DRG 190 ==
LOC: NEPE 23:53 → NEDA 08-21 02:19 → OBSVTOIN 08-21 03:01 → NEPHCDU 08-21 06:04 → HCPC 08-21 13:45
PROVIDERS: ADMIT Hospitalist; ATTEND Hospitalist
DX: J44.0 Chronic obstructive pulmonary disease with (acute) lower respiratory infection (principal); J96.21 Acute and chronic respiratory failure with hypoxia; A41.9 Sepsis, unspecified organism; E87.1 Hypo-osmolality and hyponatremia; J20.9 Acute bronchitis, unspecified; J44.1 Chronic obstructive pulmonary disease with (acute) exacerbation; I10 Essential (primary) hypertension; E03.9 Hypothyroidism, unspecified; R73.9 Hyperglycemia, unspecified; T38.0X5A Adverse effect of glucocorticoids and synthetic analogues, initial encounter; R00.0 Tachycardia, unspecified; M54.9 Dorsalgia, unspecified; Z91.81 History of falling; Z59.0 Homelessness; Z87.891 Personal history of nicotine dependence; R82.71 Bacteriuria
CPT/HCPCS: 71010; 76937; 80048; 80053; 81001; 82948; 83036; 83735; 85007; 85025; 85027; 87040; 87077; 87086; 87186; 87449; 87804; 93005; 94150; 94620; 94640; 94664; 94667; 94668; 96365; J1644; J1815; J2930; J3475; J7613

== ENCOUNTER 2016-10-25 08:36 | Inpatient (IN) | payer MEDICARE, OTHER ==
[~2016-10-25] VITALS: Ht 162.6 cm; Wt 46.0 kg
[2016-10-25] VITALS (7 sets, daily range): BP systolic 126–142; BP diastolic 64–80; PULSE 100–113; RESP 18–28; TEMP 97.7–98.2; O2SAT 95–99
[~2016-10-25 08:36] MED LIST changes: -AZIT250T3 PO; +CIPR250T2 PO; -HIGH BP MED; -HYDR-3533 PO; +LEVO75TA3 PO; +LISI-519 PO; +MUCI600T PO; +NORC5TAB PO; +OXYGENTANK NAS.CANULA; +PRED10PA PO; -PRED20 PO; +SYMB80AE INH; -ZOFR4TAB PO; -[UNRECOGNIZED DRUG - REMARK]
[2016-10-25] MEDS ORDERED: SODIUM CHLORIDE 0.9% FLUSH 10 ML FLUSH IVF PRN (09:00)
[2016-10-25 09:08] LABS: AUTOMATED NEUTROPHIL # 10.8 TH/MM3 (1.8-7.7); BASOPHIL # 0.1 TH/MM3 (0-0.2); BASOPHIL % 0.3 % (0.0-2.0); EOSINOPHIL # 0.1 TH/MM3 (0-0.4); EOSINOPHIL % 0.6 % (0.0-4.0); HEMO FLAGS DIFF FINAL; LYMPH % 19.8 % (9.0-44.0); MEAN CORPUSCULAR HEMOGLOBIN 28.6 PG (27.0-34.0); MEAN CORPUSCULAR HGB CONC 32.9 % (32.0-36.0); MONO % 9.3 % (0.0-8.0); PLATELET COUNT 374 TH/MM3 (150-450); RED BLOOD COUNT 4.71 MIL/MM3 (4.00-5.30); RED CELL DISTRIBUTION WIDTH 15.4 % (11.6-17.2); WHITE BLOOD COUNT 15.4 TH/MM3 (4.0-11.0)
[2016-10-25] MEDS: RESP: ALBUTEROL 2.5 MG/IPRATROPIUM 0.5 MG NEB (SCH) INH ×4 (09:16→20:25)
--- NOTE | 2016-10-25 09:18 | PD ---
HPI Chief Complaint: Respiratory Distress Time Seen by Provider: 08:48 Travel History International Travel<30 days: No Contact w/Intl Traveler<30days: No Traveled to known affect area: No History of Present Illness HPI Is a 50-year-old woman who presents to the emergency department complaining of severe shortness of breath. She's has a history of end-stage emphysema and COPD. She is on home oxygen. She's been out of her medicine for several days. She is living on [address] right now. She has an oxygen regular that she typically uses but is using attack right now. She called EMS that she developed chest tightness about 4 AM this morning. EMS reports she was not moving any air at all on arrival. Her oxygen saturation were preserved however. She was given 125 mg Solu-Medrol, and for neb treatments in route. She had some minimal improvement. She's had cough that been nonproductive. No fevers or chills. No other complaints. History Past Medical History Narrative Medical COPD/emphysema Borderline diabetes Hypertension CHF Hypothyroidism Remote history of IVDU Homelessness Tetanus Vaccination: < 5 Years Influenza Vaccination: Yes Social History Alcohol Use: No Tobacco Use: No Allergies-Medications (Allergen,Severity, Reaction): Coded Allergies: No Known Allergies (Unverified , 10/25/16) Reported Meds & Prescriptions Reported Meds & Active Scripts Active Ciprofloxacin (Ciprofloxacin HCl) 250 Mg Tab 250 Mg PO BID Lisinopril 5 Mg Tab 5 Mg PO DAILY [place] (Hydrocodone-Acetaminophen) 5-325 mg Tab 1 Tab PO Q8HR PRN Oxygen tank (Oxygen) 1 Ea Tank 2 Liter CHRISTIANA.CANULA CONTINUOUS Oxygen Concentrator Portable Gaseous 2 L/min via Nasal Cannula Continuous For 99 months Mucinex ER 12 HR (Guaifenesin) 600 Mg [place] 600 Mg PO BID Prednisone (21) 10 mg tab Dose Pack (Prednisone) 10 Mg Pack 10 Mg PO DIRECTED Levothyroxine (Levothyroxine Sodium) 75 Mcg Tab 75 Mcg PO DAILY Symbicort Inh (Budesonide/Formoterol Fumarate) 80-4.5 Mcg/Act Aero 1 Puff INH Q12HR Ventolin Hfa 18 GM Inh (Albuterol Sulfate) 90 Mcg/Act Aer 2 Puff INH Q4-6H PRN Albuterol Neb (Albuterol Sulfate) 2.5 Mg/3 Ml Neb 2.5 Mg NEB Q4HR NEB While awake Review of Systems Except as stated in HPI: all other systems reviewed are Neg Physical Exam Narrative GENERAL: 50-year-old woman, cachectic, moderate respiratory distress. SKIN: Focused skin assessment warm/dry. HEAD: Atraumatic. Normocephalic. EYES: Pupils equal and round. No scleral icterus. No injection or drainage. ENT: No nasal bleeding or discharge. Mucous membranes pink and moist. NECK: Trachea midline. No JVD. CARDIOVASCULAR: Regular rate and rhythm. No murmur appreciated. RESPIRATORY: Moderate respiratory distress. Speaks in short 3-4 word sentences. Poor air movement throughout. Minimally audible wheezing throughout. GASTROINTESTINAL: Abdomen soft, non-tender, nondistended. Hepatic and splenic margins not palpable. MUSCULOSKELETAL: No obvious deformities. Decreased muscle bulk. No edema. NEUROLOGICAL: Awake and alert. No obvious cranial nerve deficits. Motor grossly within normal limits. Normal speech. Data Data Last Documented VS Vital Signs Date Time Temp Pulse Resp B/P Pulse Ox O2 Delivery O2 Flow Rate FiO2 10/25/16 09:07 113 24 10/25/16 09:07 99 Nasal Cannula 2.5 10/25/16 08:43 97.7 137/80 Orders Complete Blood Count With Diff (10/25/16 08:48) Comprehensive Metabolic Panel (10/25/16 08:48) Troponin I (10/25/16 08:48) Arterial Blood Gas (Abg) (10/25/16 08:48) Iv Access Insert/Monitor (10/25/16 08:48) Ecg Monitoring (10/25/16 08:48) Oximetry (10/25/16 08:48) Oxygen Administration (10/25/16 08:48) Chest, Single Ap (10/25/16 08:48) Sodium Chloride 0.9% Flush (Ns Flush) (10/25/16 09:00) Albuterol-Ipratropium Neb (Duoneb Neb) (10/25/16 09:00) Labs Laboratory Tests Test 10/25/16 10/25/16 08:55 09:34 White Blood Count 15.4 TH/MM3 Red Blood Count 4.71 MIL/MM3 Hemoglobin 13.5 GM/DL Hematocrit 41.0 % Mean Corpuscular Volume 87.0 FL Mean Corpuscular Hemoglobin 28.6 PG Mean Corpuscular Hemoglobin 32.9 % Concent Red Cell Distribution Width 15.4 % Platelet Count 374 TH/MM3 Mean Platelet Volume 9.0 FL Neutrophils (%) (Auto) 70.0 % Lymphocytes (%) (Auto) 19.8 % Monocytes (%) (Auto) 9.3 % Eosinophils (%) (Auto) 0.6 % Basophils (%) (Auto) 0.3 % Neutrophils # (Auto) 10.8 TH/MM3 Lymphocytes # (Auto) 3.0 TH/MM3 Monocytes # (Auto) 1.4 TH/MM3 Eosinophils # (Auto) 0.1 TH/MM3 Basophils # (Auto) 0.1 TH/MM3 CBC Comment DIFF FINAL Differential Comment Sodium Level 136 MEQ/L Potassium Level 3.8 MEQ/L Chloride Level 94 MEQ/L Carbon Dioxide Level 33.2 MEQ/L Anion Gap 9 MEQ/L Blood Urea Nitrogen 7 MG/DL Creatinine 0.49 MG/DL Estimat Glomerular Filtration 134 ML/MIN Rate Random Glucose 105 MG/DL Calcium Level 9.2 MG/DL Total Bilirubin 0.3 MG/DL Aspartate Amino Transf 17 U/L (AST/SGOT) Alanine Aminotransferase 21 U/L (ALT/SGPT) Alkaline Phosphatase 127 U/L Troponin I LESS THAN 0.02 NG/ML Total Protein 7.9 GM/DL Albumin 3.3 GM/DL Blood Gas Puncture Site RT BRACHIAL Blood Gas Patient Temperature 98.6 Blood Gas HCO3 32 mmol/L Blood Gas Base Excess 7.2 mmol/L Blood Gas Oxygen Saturation 90 % Arterial Blood pH 7.40 Arterial Blood Partial 52 mmHg Pressure CO2 Arterial Blood Partial 61 mmHG Pressure O2 Arterial Blood Oxygen Content 16.5 Vol % Arterial Blood 2.6 % Carboxyhemoglobin Arterial Blood Methemoglobin 0.6 % Blood Gas Hemoglobin 13.1 G/DL Oxygen Delivery Device NASAL CANNULA Blood Gas Liter Flow 2 L/M [facility] Medical Decision Making Medical Screen Exam Complete: Yes Emergency Medical Condition: Yes Interpretation(s) My review of EKG: Sinus tachycardia at a rate of 110, short [place] interval, P pulmonale, normal axis, no acute ischemia. LABS: CBC remarkable for mild leukocytosis. CMP generally unremarkable. Troponin negative. ABG 7.4/52/61/32 Chest x-ray: Advanced COPD changes. No acute abnormality. Differential Diagnosis COPD, pneumonia, flu, CHF, other Narrative Course Medical decision making 50-year-old woman states she here without a medicines times several days, chest tightness shortness of breath fairly prominent respiratory distress. Improved with EMS. We'll check labs x-rays, continue nebs. Received steroids with EMS. Difficult social situation is a patient's home was, on oxygen, with no medications for COPD. Likely need admission. Diagnosis Primary Impression: COPD exacerbation Cecilio Hardin MD October 25, 2016 09:18
[2016-10-25 09:31] LABS: ANION GAP 9 MEQ/L (5-15); AST (GOT) 17 U/L (15-37); BICARBONATE 33.2 MEQ/L (21.0-32.0); BLOOD UREA NITROGEN 7 MG/DL (7-18); CHLORIDE 94 MEQ/L (98-107); GLOMERULAR FILTRATION RATE 134 ML/MIN (>89); POTASSIUM 3.8 MEQ/L (3.5-5.1); SODIUM (NA) 136 MEQ/L (136-145)
[2016-10-25 09:35] LABS: ALKALINE PHOSPHATASE 127 U/L (45-117); ALT (GPT) 21 U/L (10-53); TOTAL BILIRUBIN ADULT 0.3 MG/DL (0.2-1.0)
--- NOTE | 2016-10-25 09:40 | RADRPT ---
EXAM DATE/TIME: 10/25/2016 09:09 [place] COMPARISON: CHEST SINGLE AP, August 21, 2016, 0:45. INDICATIONS : Short of breath with wheezing. MEDICAL HISTORY : Chronic obstructive pulmonary disease. SURGICAL HISTORY : None. ENCOUNTER: Initial ACUITY: 1 day PAIN SCORE: 0/10 LOCATION: Bilateral chest FINDINGS: The heart is at the upper limits of normal in size. There COPD changes. The exam is stable when jay jay red to previous dated 08/21/16. The visualized bony structures demonstrate degenerative changes but are otherwise intact. CONCLUSION: 1. Advanced COPD changes. No acute abnormality. Enrrique Lewis MD on October 25, 2016 at 9:37 Board Certified Radiologist. This report was verified electronically.
[2016-10-25 09:44] LABS: BLOOD GAS BASE EXCESS 7.2 mmol/L (-2-2); BLOOD GAS CARBOXYHEMOGLOBIN 2.6 % (0-4); BLOOD GAS HCO3 32 mmol/L (22-26); BLOOD GAS METHEMOGLOBIN 0.6 % (0-2); BLOOD GAS O2 HGB SATURATION 90 % (90-100); BLOOD GAS OXYGEN CONTENT 16.5 Vol % (12.0-20.0); BLOOD GAS PCO2 52 mmHg (38-42); BLOOD GAS PO2 61 mmHG (61-120); BLOOD GAS TOTAL HGB 13.1 G/DL (12.0-16.0); TEMP CORR TO 98.6
[2016-10-25 09:45] LABS: CRITICAL VALUE YES; DRAW SITE RT BRACHIAL; LITER FLOW 2 L/M; NUMBER OF ARTERIAL PUNCTURES 1; OXYGEN DEVICE NASAL CANNULA; STAT YES
[2016-10-25] MEDS ORDERED: MAGNESIUM HYDROXIDE SUSP 30 ML CUP PO PRN (10:30)
[2016-10-25] MEDS ORDERED: ONDANSETRON HCL 4 MG/2 ML VIAL IVP PRN (10:30)
[2016-10-25] MEDS ORDERED: ACETAMINOPHEN 325 MG TAB PO PRN (10:30)
[2016-10-25] MEDS ORDERED: NALOXONE HCL 0.4 MG/ML AMP IV PRN (10:30)
--- NOTE | 2016-10-25 12:24 | EKG ---
Date Performed: 10/25/2016 Time Performed: 08:48:37 PTAGE: 50 years EKG: SINUS TACHYCARDIA WITH SHORT [place] INTERVAL POSSIBLE RIGHT ATRIAL ENLARGEMENT POSSIBLE LEFT AT RIAL ENLARGEMENT MODERATE ST DEPRESSION ABNORMAL ECG INTERPRETATION BASED ON A DEFAULT AGE OF 40 YEAR S NO PREVIOUS TRACING DOCTOR: Cecilio Fitch Interpretating Date/Time 10/25/2016 12:22:40
--- NOTE | 2016-10-25 12:54 | HHI.HP ---
[facility] Admission Diagnosis COPD exacerbation Diagnoses: (1) COPD exacerbation (2) Leukocytosis Chief Complaint: Dyspnea Travel History International Travel<30 Days: No Contact w/Intl Traveler <30 Da: No Traveled to Known Affected Are: No History of Present Illness The patient is a 50-year-old female who presented to the emergency department with complaint of worsening shortness of breath over the last 2 days. She reports night sweats, but denies fever or chills. She reports diarrhea and abdominal discomfort, but denies nausea or vomiting. She has chest wall tenderness from coughing. She states that she had to move back onto the streets and was unable to take her oxygen concentrator with her. She has been out of her medications. She did still have some oxygen left in her portable tank. Review of Systems Constitutional: COMPLAINS OF: Night Sweats, DENIES: Fever, Chills Eyes: DENIES: Blurred vision, Vision loss Ears, nose, mouth, throat: DENIES: Hearing loss Respiratory: COMPLAINS OF: Cough, Shortness of breath, DENIES: Wheezing, Sputum production Cardiovascular: COMPLAINS OF: Chest pain, DENIES: Palpitations, Dyspnea on Exertion, Lower Extremity Edema Gastrointestinal: COMPLAINS OF: Diarrhea, DENIES: Abdominal pain, Constipation , Nausea, Vomiting Genitourinary: DENIES: Urinary frequency, Urinary incontinence, Urgency, Hematuria, Dysuria, Nocturia Musculoskeletal: DENIES: Joint pain, Muscle aches Integumentary: DENIES: Pruritus, Rash Hematologic/lymphatic: DENIES: Bruising Neurologic: DENIES: Headache Past Family Social History Past Medical History COPD Hypothyroidism Hypertension CHF Past Surgical History None Reported Medications Ciprofloxacin (Ciprofloxacin HCl) 250 Mg Tab 250 Mg PO BID Lisinopril 5 Mg Tab 5 Mg PO DAILY Duncan (Hydrocodone-Acetaminophen) 5-325 mg Tab 1 Tab PO Q8HR PRN Oxygen tank (Oxygen) 1 Ea Tank 2 Liter CHRISTIANA.CANULA CONTINUOUS Oxygen Concentrator Portable Gaseous 2 L/min via Nasal Cannula Continuous For 99 months Mucinex ER 12 HR (Guaifenesin) 600 Mg Odell 600 Mg PO BID Prednisone (21) 10 mg tab Dose Pack (Prednisone) 10 Mg Pack 10 Mg PO DIRECTED Levothyroxine (Levothyroxine Sodium) 75 Mcg Tab 75 Mcg PO DAILY Symbicort Inh (Budesonide/Formoterol Fumarate) 80-4.5 Mcg/Act Aero 1 Puff INH Q12HR Ventolin Hfa 18 GM Inh (Albuterol Sulfate) 90 Mcg/Act Aer 2 Puff INH Q4-6H PRN Albuterol Neb (Albuterol Sulfate) 2.5 Mg/3 Ml Neb 2.5 Mg NEB Q4HR NEB While awake Allergies: Coded Allergies: No Known Allergies (Unverified , 10/25/16) Family History Cancer, diabetes, heart disease Social History Quit smoking a few months ago. Has had an occasional cigarette since then. Denies alcohol or illicit drug use. Physical Exam Vital Signs Vital Signs Date Time Temp Pulse Resp B/P Pulse Ox O2 Delivery O2 Flow Rate FiO2 10/25/16 11:50 105 24 126/74 99 Nasal Cannula 2.5 10/25/16 09:07 113 24 10/25/16 09:07 99 Nasal Cannula 2.5 10/25/16 08:46 26 99 Nasal Cannula 2.5 10/25/16 08:43 97.7 110 28 137/80 99 Physical Exam GENERAL: Thin female in no acute distress. HEENT: Normocephalic, atraumatic. Pupils equal, round and reactive. Extraocular movements intact. No scleral icterus. No injection or drainage. Oropharynx is clear. Mucous membranes are moist. CARDIOVASCULAR: Regular rate and rhythm without murmurs, gallops, or rubs. RESPIRATORY: Poor air movement. Decreased breath sounds throughout. GASTROINTESTINAL: Abdomen soft, non-tender, nondistended. EXTREMITIES: No lower extremity edema. No calf tenderness. PSYCH: Alert and oriented x 3. Laboratory Laboratory Tests Test 10/25/16 10/25/16 08:55 09:34 White Blood Count 15.4 Red Blood Count 4.71 Hemoglobin 13.5 Hematocrit 41.0 Mean Corpuscular Volume 87.0 Mean Corpuscular Hemoglobin 28.6 Mean Corpuscular Hemoglobin 32.9 Concent Red Cell Distribution Width 15.4 Platelet Count 374 Mean Platelet Volume 9.0 Neutrophils (%) (Auto) 70.0 Lymphocytes (%) (Auto) 19.8 Monocytes (%) (Auto) 9.3 Eosinophils (%) (Auto) 0.6 Basophils (%) (Auto) 0.3 Neutrophils # (Auto) 10.8 Lymphocytes # (Auto) 3.0 Monocytes # (Auto) 1.4 Eosinophils # (Auto) 0.1 Basophils # (Auto) 0.1 CBC Comment DIFF FINAL Differential Comment Sodium Level 136 Potassium Level 3.8 Chloride Level 94 Carbon Dioxide Level 33.2 Anion Gap 9 Blood Urea Nitrogen 7 Creatinine 0.49 Estimat Glomerular Filtration 134 Rate Random Glucose 105 Calcium Level 9.2 Total Bilirubin 0.3 Aspartate Amino Transf 17 (AST/SGOT) Alanine Aminotransferase 21 (ALT/SGPT) Alkaline Phosphatase 127 Troponin I LESS THAN 0.02 Total Protein 7.9 Albumin 3.3 Blood Gas Puncture Site RT BRACHIAL Blood Gas Patient Temperature 98.6 Blood Gas HCO3 32 Blood Gas Base Excess 7.2 Blood Gas Oxygen Saturation 90 Arterial Blood pH 7.40 Arterial Blood Partial 52 Pressure CO2 Arterial Blood Partial 61 Pressure O2 Arterial Blood Oxygen Content 16.5 Arterial Blood 2.6 Carboxyhemoglobin Arterial Blood Methemoglobin 0.6 Blood Gas Hemoglobin 13.1 Oxygen Delivery Device NASAL CANNULA Blood Gas Liter Flow 2 Result Diagram: 10/25/1655 10/25/16854 Imaging Last Impressions Chest X-Ray 10/25/1648 Signed Impressions: Service Date/Time: Tuesday, October 25, 2016 09:09 - CONCLUSION: 1. Advanced COPD changes. No acute abnormality. Enrrique Lewis MD Assessment and Plan Assessment and Plan 1. COPD exacerbation: Continue bronchodilators, steroids, oxygen. Patient is retaining CO2. Consider pulmonology consult if patient does not improve. Patient is chronically on home oxygen. 2. Pleuritic chest pain: Secondary to coughing. Continue pain control. 3. Hypothyroidism: Continue Synthroid. 4. Hypertension: Blood pressure is well controlled. Continue lisinopril. 5. DVT prophylaxis: Lovenox. Sal Chavarria MD October 25, 2016 12:54
[2016-10-25] MEDS ORDERED: IBUPROFEN 400 MG TAB PO PRN (13:00)
[2016-10-25] MEDS ORDERED: ACETAMINOPHEN/HYDROcodone 325 MG/5 MG TAB PO PRN (13:00)
[2016-10-25] MEDS: ENOXAPARIN SODIUM 40 MG/0.4 ML SYRINGE SQ SCH (13:46)
[2016-10-25] MEDS: methylPREDNISolone SOD SUCC 125 MG/2 ML VIAL IVP SCH ×3 (13:46→21:57)
[2016-10-25] MEDS: oxyCODONE/ACETAMINOPHEN 5 MG/325 MG TAB PO PRN (18:18)
[2016-10-25] MEDS: guaiFENesin E.R. 600 MG TAB PO SCH (21:56)
[2016-10-25] MEDS: BUDESONIDE-FORMOTEROL 80/4.5 MCG INHALER INH SCH (22:25)
[2016-10-26] VITALS (7 sets, daily range): BP systolic 99–132; BP diastolic 53–70; PULSE 96–100; RESP 18–22; TEMP 97.7–98.6; O2SAT 94–97
[2016-10-26] MEDS: oxyCODONE/ACETAMINOPHEN 5 MG/325 MG TAB PO PRN ×4 (00:24→20:52)
[2016-10-26] MEDS: RESP: ALBUTEROL 2.5 MG/IPRATROPIUM 0.5 MG NEB (SCH) INH ×3 (04:11→21:07)
[2016-10-26 04:43] LABS: AUTOMATED NEUTROPHIL # 14.2 TH/MM3 (1.8-7.7); BASOPHIL % 0.1 % (0.0-2.0); EOSINOPHIL % 0.1 % (0.0-4.0); HEMATOCRIT 34.1 % (35.0-46.0); HEMO FLAGS DIFF FINAL; LYMPH % 5.3 % (9.0-44.0); LYMPHOCYTE # 0.8 TH/MM3 (1.0-4.8); MEAN CELL VOLUME 86.7 FL (80.0-100.0); MEAN CORPUSCULAR HEMOGLOBIN 28.7 PG (27.0-34.0); MEAN CORPUSCULAR HGB CONC 33.1 % (32.0-36.0); MONO % 1.7 % (0.0-8.0); NEUT % 92.8 % (16.0-70.0); PLATELET COUNT 420 TH/MM3 (150-450); RED BLOOD COUNT 3.94 MIL/MM3 (4.00-5.30); RED CELL DISTRIBUTION WIDTH 15.4 % (11.6-17.2); WHITE BLOOD COUNT 15.2 TH/MM3 (4.0-11.0)
[2016-10-26 05:11] LABS: BICARBONATE 30.1 MEQ/L (21.0-32.0); POTASSIUM 4.4 MEQ/L (3.5-5.1)
[2016-10-26] MEDS: LEVOTHYROXINE SODIUM 75 MCG TAB PO SCH (05:26)
[2016-10-26] MEDS: methylPREDNISolone SOD SUCC 125 MG/2 ML VIAL IVP SCH (05:27)
[2016-10-26] MEDS ORDERED: GLUCAGON 1 MG/ML VIAL OTHER PRN (08:30)
[2016-10-26] MEDS ORDERED: DEXTROSE 50% IN WATER 50 ML VIAL(D50) IV PRN (08:30)
--- NOTE | 2016-10-26 08:30 | HHI.PR ---
Subjective Remarks Follow-up for shortness of breath. The patient's chief complaint today is lower extremity cramping. She states that this started last night. She states that she's been out of her home nebulizers, but has been taking her other medications including her thyroid meds. She states that she has been living on the streets. She states that her breathing is much worse than it was a week ago. She denies much change in her shortness of breath overnight. She has a dry cough. She has a wheelchair, that she states she uses it as she can't go very far without getting short of breath. She states she ambulated to the restroom without oxygen overnight, which causes much worsening of her shortness of breath. Objective Vitals Vital Signs Date Time Temp Pulse Resp B/P Pulse Ox O2 Delivery O2 Flow Rate FiO2 10/26/16 07:18 98.2 96 20 132/70 96 10/26/16 04:44 97.7 100 18 125/60 96 10/25/16 21:52 98.0 100 21 142/69 95 10/25/16 20:27 96 Nasal Cannula 3.00 10/25/16 17:02 98.2 109 18 127/64 95 10/25/16 12:56 126/76 10/25/16 11:50 105 24 126/74 99 Nasal Cannula 2.5 10/25/16 09:07 113 24 10/25/16 09:07 99 Nasal Cannula 2.5 10/25/16 08:46 26 99 Nasal Cannula 2.5 10/25/16 08:43 97.7 110 28 137/80 99 Result Diagram: 10/26/16 0423 10/26/16 0423 Imaging Last Impressions Chest X-Ray 10/25/16 0848 Signed Impressions: Service Date/Time: Tuesday, October 25, 2016 09:09 - CONCLUSION: 1. Advanced COPD changes. No acute abnormality. Enrrique Lewis MD Objective Remarks GENERAL: Well-developed well-nourished. In no acute distress. SKIN: Warm and dry. No lesions noted. HEENT: Normocephalic. Pupils equal and round. Mucous membranes pink and moist. CARDIOVASCULAR: Regular rate and rhythm. No murmur appreciated. RESPIRATORY: No accessory muscle use. Clear to auscultation. Slightly diminished breath sounds in the bases. No wheezing. GASTROINTESTINAL: Abdomen soft, non-tender, nondistended. Bowel sounds x4. MUSCULOSKELETAL: No obvious deformities. No clubbing or cyanosis. No edema. Palpable but diminished peripheral pulses. No calf swelling or tenderness. NEUROLOGICAL: Awake and alert. No focal neurological deficits. Moves upper and lower extremities spontaneously. Normal speech. PSYCHIATRIC: Appropriate mood and affect; insight and judgment normal. A/P Problem List: (1) COPD exacerbation ICD Code: J44.1 Status: Acute (2) Leukocytosis ICD Code: D72.829 Status: Acute Assessment and Plan 50-year-old female who presented to the emergency department with complaint of worsening shortness of breath Acute COPD exacerbation on chronic respiratory failure: CO2 retention improving. Continue bronchodilators scheduled and as needed. Taper steroids. Supplemental oxygen as needed. Consider pulmonology consult if patient does not improve. Patient is chronically on home oxygen. PT eval. Hyperglycemia: Secondary to steroids. Monitor Accu-Cheks. Cover with SSI. Check hemoglobin A1c. Diabetic diet. Hypothyroidism: Check TSH. Continue Synthroid. Hypertension: Blood pressure is well controlled. Continue lisinopril. Lower extremity cramping: Check TSH, CPK, and magnesium. Pain control. DVT prophylaxis: Lovenox. Discharge Planning Case management consulted for assistance with discharge disposition. D/W case management, meets inpatient criteria. Tre Olivares October 26, 2016 08:30
[2016-10-26] MEDS: RESP: ALBUTEROL 2.5 MG/3 ML NEB (PRN) INH (09:19)
[2016-10-26 10:16] LABS: MAGNESIUM 2.5 MG/DL (1.5-2.5)
[2016-10-26] MEDS: INSULIN ASPART SUPPLEMENTAL SCALE SQ SCH ×3 (11:00→20:53)
[2016-10-26] MEDS: guaiFENesin E.R. 600 MG TAB PO SCH ×2 (11:50→20:51)
[2016-10-26] MEDS: LISINOPRIL 5 MG TAB PO SCH (11:50)
[2016-10-26] MEDS: BUDESONIDE-FORMOTEROL 80/4.5 MCG INHALER INH SCH ×2 (11:50→20:52)
[2016-10-26] MEDS: methylPREDNISolone SOD SUCC 40 MG/1 ML VIAL IV PUSH SCH ×3 (11:50→23:51)
[2016-10-26] MEDS: ENOXAPARIN SODIUM 40 MG/0.4 ML SYRINGE SQ SCH (11:51)
[2016-10-26 13:29] LABS: HEMOGLOBIN A1b 1.6 %; HEMOGLOBIN Ao 84.8 %; HEMOGLOBIN LA1C 2.6 %; HEMOGLOBIN P3 3.9 %
[2016-10-27] VITALS (8 sets, daily range): BP systolic 108–129; BP diastolic 55–80; PULSE 74–97; RESP 18–22; TEMP 97.2–98.6; O2SAT 95–99
[2016-10-27] MEDS: oxyCODONE/ACETAMINOPHEN 5 MG/325 MG TAB PO PRN ×4 (03:30→22:16)
[2016-10-27] MEDS: LEVOTHYROXINE SODIUM 75 MCG TAB PO SCH (05:14)
[2016-10-27] MEDS: methylPREDNISolone SOD SUCC 40 MG/1 ML VIAL IV PUSH SCH ×4 (05:14→22:15)
[2016-10-27] MEDS: INSULIN ASPART SUPPLEMENTAL SCALE SQ SCH ×4 (05:25→21:00)
[2016-10-27] MEDS: RESP: ALBUTEROL 2.5 MG/IPRATROPIUM 0.5 MG NEB (SCH) INH ×3 (07:46→20:00)
--- NOTE | 2016-10-27 09:37 | HHI.PR ---
Subjective Remarks Follow up for COPD exacerbation. The patient reports continued shortness of breath and dry nonproductive cough, minimally improved compared to yesterday. She also complains of constant right lower anterior chest wall pain that started yesterday, worse with cough and deep inspiration. Denies fevers/chills. She does not feel ready for discharge. Objective Vitals Vital Signs Date Time Temp Pulse Resp B/P Pulse Ox O2 Delivery O2 Flow Rate FiO2 10/27/16 07:48 98 Nasal Cannula 2.50 10/27/16 07:24 98.6 74 18 110/55 99 10/27/16 04:00 98.4 76 18 115/58 99 10/27/16 00:00 97.2 97 18 108/66 98 10/26/16 21:09 98.4 97 19 105/55 95 10/26/16 21:06 97 Nasal Cannula 2.50 10/26/16 15:53 98.5 99 20 99/54 95 10/26/16 11:11 98.6 96 22 106/53 94 10/26/16 09:24 94 Nasal Cannula 3.00 I/O 10/26/16 10/26/16 10/26/16 10/27/16 10/27/16 10/27/16 07:00 15:00 23:00 07:00 15:00 23:00 Intake Total 400 ml Balance 400 ml Intake Oral 400 ml # Voids 3 # Bowel Movements 0 Result Diagram: 10/26/16 0423 10/26/16 0423 Imaging Last Impressions Chest X-Ray 10/25/16 0848 Signed Impressions: Service Date/Time: Tuesday, October 25, 2016 09:09 - CONCLUSION: 1. Advanced COPD changes. No acute abnormality. Enrrique Lewis MD Objective Remarks GENERAL: Well-nourished, well-developed middle aged female patient in [facility]. SKIN: Warm and dry. No rash. HEENT: Normocephalic. Atraumatic. Pupils equal and round. Mucous membranes pink and moist. NECK: Supple. Trachea midline. CARDIOVASCULAR: Regular rate and rhythm. S1, S2 noted. No murmur appreciated. RESPIRATORY: No accessory muscle use. Breath sounds diminished at bilateral bases. No wheezing. GASTROINTESTINAL: Abdomen soft, non-tender, nondistended. Normoactive bowel sounds x4. MUSCULOSKELETAL: No obvious deformities. Extremities without clubbing, cyanosis , or edema. No calf tenderness bilaterally. NEUROLOGICAL: Awake and alert. No obvious cranial nerve deficits. Motor grossly within normal limits. Normal speech. PSYCHIATRIC: Appropriate mood and affect; insight and judgment normal. Medications and IVs Current Medications Medications (Trade) Dose Ordered Sig/Isadora Route Start Time Stop Time Status Last Admin (NS Flush) 2 ml UNSCH PRN IVF 10/25/16 09:00 (Tylenol) 650 mg Q4H PRN PO 10/25/16 10:30 (Zofran Inj) 4 mg Q6H PRN IVP 10/25/16 10:30 (Milk Of Magnesia Liq) 30 ml Q12H PRN PO 10/25/16 10:30 (Lovenox Inj) 40 mg Q24H SQ 10/25/16 11:00 10/26/16 11:51 (Narcan Inj) 0.4 mg UNSCH PRN IV 10/25/16 10:30 (Motrin) 400 mg Q6H PRN PO 10/25/16 13:00 (Symbicort 80-4.5 Mcg Inh) 1 puff Q12HR INH 10/25/16 21:00 10/26/16 20:52 (Mucinex Er) 600 mg BID PO 10/25/16 21:00 10/26/16 20:51 (Synthroid) 75 mcg DAILY@06 PO 10/26/16 06:00 10/27/16 05:14 (Prinivil) 5 mg DAILY PO 10/26/16 09:00 10/26/16 11:50 (Percocet 5-325 Mg) 1 tab Q6H PRN PO 10/25/16 18:00 10/27/16 03:30 (SoluMEDROL INJ) 40 mg Q6H IV PUSH 10/26/16 11:00 10/27/16 05:14 (D50w (Vial) Inj) 50 ml UNSCH PRN IV 10/26/16 08:30 (Glucagon Inj) 1 mg UNSCH PRN OTHER 10/26/16 08:30 A/P Problem List: (1) COPD exacerbation ICD Code: J44.1 Status: Acute (2) Leukocytosis ICD Code: D72.829 Status: Acute Assessment and Plan 50-year-old female with hx of COPD, chronic respiratory failure on home O2, who presented to the emergency department with complaint of worsening shortness of breath Acute COPD exacerbation on chronic respiratory failure: CO2 retention improving. Continue bronchodilators scheduled and as needed. Taper steroids, continue IV Solumedrol 40mg q6h. Continue O2. Consider pulmonology consult if patient does not improve. Patient is chronically on home oxygen. PT eval. Hyperglycemia: Secondary to steroids. Monitor Accu-Cheks. Cover with SSI. Hemoglobin A1c 5.4. Diabetic diet. Hypothyroidism: TSH wnl. Continue Synthroid. Hypertension: Blood pressure is well controlled. Continue lisinopril. Lower extremity cramping: TSH, CPK, and magnesium all wnl. Pain control with Percocet prn. DVT prophylaxis: Lovenox. Discharge Planning Likely discharge tomorrow, pending further clinical improvement. Kim Cheung PA-C October 27, 2016 09:36
[2016-10-27] MEDS: BUDESONIDE-FORMOTEROL 80/4.5 MCG INHALER INH SCH ×2 (09:40→21:06)
[2016-10-27] MEDS: guaiFENesin E.R. 600 MG TAB PO SCH ×2 (09:40→21:06)
[2016-10-27] MEDS: LISINOPRIL 5 MG TAB PO SCH (09:40)
[2016-10-27] MEDS: ENOXAPARIN SODIUM 40 MG/0.4 ML SYRINGE SQ SCH (11:49)
[2016-10-28] VITALS (8 sets, daily range): BP systolic 130–145; BP diastolic 65–80; PULSE 85–99; RESP 18–20; TEMP 96.1–98.3; O2SAT 94–98
[2016-10-28] MEDS: RESP: ALBUTEROL 2.5 MG/3 ML NEB (PRN) INH (03:52)
[2016-10-28] MEDS: oxyCODONE/ACETAMINOPHEN 5 MG/325 MG TAB PO PRN ×4 (04:13→19:44)
[2016-10-28] MEDS: LEVOTHYROXINE SODIUM 75 MCG TAB PO SCH (05:50)
[2016-10-28] MEDS: methylPREDNISolone SOD SUCC 40 MG/1 ML VIAL IV PUSH SCH ×4 (05:50→23:12)
[2016-10-28] MEDS: INSULIN ASPART SUPPLEMENTAL SCALE SQ SCH (06:40)
[2016-10-28] MEDS: RESP: ALBUTEROL 2.5 MG/IPRATROPIUM 0.5 MG NEB (SCH) INH ×3 (09:57→20:35)
[2016-10-28] MEDS: guaiFENesin E.R. 600 MG TAB PO SCH ×2 (10:17→21:35)
[2016-10-28] MEDS: LISINOPRIL 5 MG TAB PO SCH (10:18)
[2016-10-28] MEDS: BUDESONIDE-FORMOTEROL 80/4.5 MCG INHALER INH SCH (10:18)
--- NOTE | 2016-10-28 10:25 | HHI.PR ---
Subjective Remarks Patient seen for f/u COPD exacerbation. 10/28/16-patient seen this AM. No acute events overnight. Sats 95-98%. Still with 3L O2 requirement. Other vitals WNL. Only complaint today is of continued SOB and pleuritic CP. Does not feel breathing has improved since she has been here. Feels pain was under much better control with percocet q4. No other complaints. Denies any fevers. Objective Vitals Vital Signs Date Time Temp Pulse Resp B/P Pulse Ox O2 Delivery O2 Flow Rate FiO2 10/28/16 10:04 98 Nasal Cannula 3.00 10/28/16 04:00 98.3 85 18 145/78 98 10/28/16 00:00 97.8 99 20 139/80 96 10/27/16 20:31 95 Nasal Cannula 3.00 10/27/16 20:00 98.5 97 22 121/80 96 10/27/16 16:00 97.9 90 20 129/71 98 10/27/16 11:14 98.4 93 20 116/57 97 I/O 10/27/16 10/27/16 10/27/16 10/28/16 10/28/16 10/28/16 07:00 15:00 23:00 07:00 15:00 23:00 Intake Total 400 ml 780 ml 780 ml Balance 400 ml 780 ml 780 ml Intake Oral 400 ml 780 ml 780 ml # Voids 3 5 4 # Bowel Movements 0 0 0 Result Diagram: 10/26/16 0423 10/26/16 0423 Objective Remarks GENERAL: Well-developed well-nourished. In no acute distress. Sitting up in bed. Speaking in full sentences. SKIN: Warm and dry. No lesions noted. HEENT: Normocephalic. Pupils equal and round. Mucous membranes pink and moist. CARDIOVASCULAR: Regular rate and rhythm. No murmur appreciated. RESPIRATORY: No accessory muscle use. Clear to auscultation. Diminished breath sounds and faint wheezing at the bases. GASTROINTESTINAL: Abdomen soft, non-tender, nondistended. Bowel sounds x4. MUSCULOSKELETAL: No obvious deformities. No clubbing or cyanosis. No edema. Palpable but diminished peripheral pulses. No calf swelling or tenderness. NEUROLOGICAL: Awake and alert. No focal neurological deficits. Moves upper and lower extremities spontaneously. Normal speech. PSYCHIATRIC: Appropriate mood and affect; insight and judgment normal. A/P Problem List: (1) COPD exacerbation ICD Code: J44.1 Status: Acute (2) Leukocytosis ICD Code: D72.829 Status: Acute Assessment and Plan 50-year-old female who presented to the emergency department with complaint of worsening shortness of breath Acute COPD exacerbation on chronic respiratory failure: CO2 retention improving. Will repeat labs today along with blood gas. Check BNP. Continue bronchodilators scheduled and as needed. Add BID pulmicort neb and hold home symbicort. Cont IV solumedrol. Add azithromycin (plan for 5 day course). Supplemental oxygen as needed. Add CPT with breathing tx and check pre/post bedside PFT. Will change percocet to q4 dosing for pleuritic CP. Consider pulmonology consult if patient does not improve. Patient is chronically on home oxygen. PT eval. Hyperglycemia: Secondary to steroids. DC ssi and accucheks (no ss requirement over ~ past 24 hours). Monitor daily BMP. Hypothyroidism: TSH WNL. Continue Synthroid. Hypertension: Blood pressure is well controlled. Continue lisinopril. Lower extremity cramping: TSH, CPK, Mg WNL. D-dimer negative. DVT prophylaxis: Lovenox. Problem Qualifiers (1) Leukocytosis: Qualified Code: D72.829 - Leukocytosis, unspecified type Parish Nicole MD R3 October 28, 2016 10:25
[2016-10-28] MEDS: ENOXAPARIN SODIUM 40 MG/0.4 ML SYRINGE SQ SCH (10:26)
[2016-10-28] MEDS ORDERED: AZITHROMYCIN 250 MG TAB PO ONE (11:00)
[2016-10-28 11:11] LABS: BLOOD GAS BASE EXCESS 5.7 mmol/L (-2-2); BLOOD GAS CARBOXYHEMOGLOBIN 0.9 % (0-4); BLOOD GAS HCO3 31 mmol/L (22-26); BLOOD GAS METHEMOGLOBIN 0.8 % (0-2); BLOOD GAS O2 HGB SATURATION 95 % (90-100); BLOOD GAS OXYGEN CONTENT 16.6 Vol % (12.0-20.0); BLOOD GAS PCO2 51 mmHg (38-42); BLOOD GAS PO2 86 mmHg (61-120); BLOOD GAS TOTAL HGB 12.3 G/DL (12.0-16.0); CRITICAL VALUE YES; DRAW SITE RT BRACHIAL; LITER FLOW 3 L/M; NUMBER OF ARTERIAL PUNCTURES 1; OXYGEN DEVICE NASAL CANNULA; STAT NO; TEMP CORR TO 98.6; ULNAR PULSE PRESENT
[2016-10-28] MEDS ORDERED: oxyCODONE/ACETAMINOPHEN 5 MG/325 MG TAB PO PRN (11:30)
[2016-10-28 13:26] LABS: AUTOMATED NEUTROPHIL # 11.8 TH/MM3 (1.8-7.7); BASOPHIL % 0.2 % (0.0-2.0); HEMO FLAGS DIFF FINAL; LYMPH % 4.2 % (9.0-44.0); LYMPHOCYTE # 0.5 TH/MM3 (1.0-4.8); MEAN CELL VOLUME 87.3 FL (80.0-100.0); MEAN CORPUSCULAR HEMOGLOBIN 28.3 PG (27.0-34.0); MEAN CORPUSCULAR HGB CONC 32.4 % (32.0-36.0); MONO % 4.4 % (0.0-8.0); NEUT % 91.2 % (16.0-70.0); PLATELET COUNT 478 TH/MM3 (150-450); RED BLOOD COUNT 4.13 MIL/MM3 (4.00-5.30); RED CELL DISTRIBUTION WIDTH 15.4 % (11.6-17.2); WHITE BLOOD COUNT 12.9 TH/MM3 (4.0-11.0)
[2016-10-28 13:45] LABS: BICARBONATE 29.7 MEQ/L (21.0-32.0); POTASSIUM 4.2 MEQ/L (3.5-5.1)
[2016-10-28] MEDS: RESP: BUDESONIDE 0.5 MG/2 ML NEB NEB SCH (20:35)
[2016-10-29] VITALS (8 sets, daily range): BP systolic 139–155; BP diastolic 65–94; PULSE 84–106; RESP 18–24; TEMP 96.3–99; O2SAT 93–99
[2016-10-29] MEDS: oxyCODONE/ACETAMINOPHEN 5 MG/325 MG TAB PO PRN ×6 (00:07→21:55)
[2016-10-29] MEDS: methylPREDNISolone SOD SUCC 40 MG/1 ML VIAL IV PUSH SCH (05:43)
[2016-10-29] MEDS: LEVOTHYROXINE SODIUM 75 MCG TAB PO SCH (05:43)
[2016-10-29] MEDS: RESP: ALBUTEROL 2.5 MG/3 ML NEB (PRN) INH (05:52)
[2016-10-29 06:43] LABS: HEMATOCRIT 37.5 % (35.0-46.0); HEMO FLAGS DIFF FINAL; LYMPH % 8.1 % (9.0-44.0); MEAN CELL VOLUME 88.1 FL (80.0-100.0); MEAN CORPUSCULAR HEMOGLOBIN 27.4 PG (27.0-34.0); MEAN CORPUSCULAR HGB CONC 31.1 % (32.0-36.0); MONO % 6.2 % (0.0-8.0); NEUT % 85.7 % (16.0-70.0); PLATELET COUNT 463 TH/MM3 (150-450); RED BLOOD COUNT 4.25 MIL/MM3 (4.00-5.30); RED CELL DISTRIBUTION WIDTH 15.6 % (11.6-17.2); WHITE BLOOD COUNT 12.9 TH/MM3 (4.0-11.0)
[2016-10-29 07:08] LABS: BICARBONATE 32.6 MEQ/L (21.0-32.0); POTASSIUM 4.2 MEQ/L (3.5-5.1)
[2016-10-29] MEDS: guaiFENesin E.R. 600 MG TAB PO SCH ×2 (08:05→21:54)
[2016-10-29] MEDS: LISINOPRIL 5 MG TAB PO SCH (08:05)
[2016-10-29] MEDS: AZITHROMYCIN 250 MG TAB PO SCH (08:05)
--- NOTE | 2016-10-29 08:54 | HHI.PR ---
Subjective Remarks Patient seen and examined this am. Vitals are stable, saturating at 98% on 3 L NC. Patient continues to feel SOB, but feels better than her baseline. Continues to use nasal canula. Feels SOB when going to rest room. Patient states she homeless and has no where to go, was previously living in [facility]. Objective Vital Signs Date Time Temp Pulse Resp B/P Pulse Ox O2 Delivery O2 Flow Rate FiO2 10/29/16 08:10 98 Nasal Cannula 3.00 10/29/16 04:00 97.9 84 20 139/84 99 10/29/16 00:00 96.3 93 18 140/72 93 10/28/16 20:40 20 10/28/16 20:36 97 Nasal Cannula 3.00 10/28/16 20:00 96.1 91 20 142/79 96 10/28/16 19:30 Nasal Cannula 3.00 10/28/16 16:00 98.3 92 18 130/65 96 10/28/16 12:00 97.4 95 18 135/70 98 10/28/16 10:04 98 Nasal Cannula 3.00 I/O 10/28/16 10/28/16 10/28/16 10/29/16 10/29/16 10/29/16 07:00 15:00 23:00 07:00 15:00 23:00 Intake Total 780 ml 1380 ml 780 ml Balance 780 ml 1380 ml 780 ml Intake Oral 780 ml 1380 ml 780 ml # Voids 4 10 3 # Bowel Movements 0 1 0 0 Result Diagram: 10/29/16 0553 10/29/16 0553 Imaging Last Impressions Chest X-Ray 10/25/16 0848 Signed Impressions: Service Date/Time: Tuesday, October 25, 2016 09:09 - CONCLUSION: 1. Advanced COPD changes. No acute abnormality. Enrrique Lewis MD Objective Remarks GENERAL: Well-developed well-nourished. In no acute distress. Sitting up in bed. Speaking in full sentences. SKIN: Warm and dry. No lesions noted. HEENT: Normocephalic. Pupils equal and round. Mucous membranes pink and moist. CARDIOVASCULAR: Regular rate and rhythm. No murmur appreciated. RESPIRATORY: No accessory muscle use. Clear to auscultation. No wheezing appreciated. No increase work of breathing. GASTROINTESTINAL: Abdomen soft, non-tender, nondistended. Bowel sounds x4. MUSCULOSKELETAL: No obvious deformities. No clubbing or cyanosis. No edema. Palpable but diminished peripheral pulses. No calf swelling or tenderness. NEUROLOGICAL: Awake and alert. No focal neurological deficits. Moves upper and lower extremities spontaneously. Normal speech. PSYCHIATRIC: Appropriate mood and affect; insight and judgment normal. A/P Problem List: (1) COPD exacerbation ICD Code: J44.1 (2) Leukocytosis ICD Code: D72.829 Assessment and Plan 50-year-old female who presented to the emergency department with complaint of worsening shortness of breath Acute COPD exacerbation on chronic respiratory failure: IMPROVED - Continue bronchodilators scheduled and as needed. - Cont BID pulmicort neb and hold home symbicort. - Stopped IV steroids, start Prednisone 60 mg PO daily - Leukocytosis improving, ABG consistent with CO2 retention - Azithromycin 10/29- . Supplemental oxygen as needed. - CPT with breathing tx - Percocet to q4 dosing for pleuritic CP. Hyperglycemia: Secondary to steroids. Monitor daily BMP. Hypothyroidism: TSH WNL. Continue Synthroid. Hypertension: Blood pressure is well controlled. Continue lisinopril. Lower extremity cramping: TSH, CPK, Mg WNL. D-dimer negative. DVT prophylaxis: Lovenox. Discharge Planning D/C tomorrow. Case management to assist. Problem Qualifiers (1) Leukocytosis: Qualified Code: D72.829 - Leukocytosis, unspecified type Argenis Perez MD R3 October 29, 2016 08:54
[2016-10-29] MEDS: RESP: ALBUTEROL 2.5 MG/IPRATROPIUM 0.5 MG NEB (SCH) INH ×3 (09:51→20:51)
[2016-10-29] MEDS: RESP: BUDESONIDE 0.5 MG/2 ML NEB NEB SCH ×2 (09:51→20:51)
[2016-10-29] MEDS: ENOXAPARIN SODIUM 40 MG/0.4 ML SYRINGE SQ SCH (12:01)
[2016-10-30] VITALS (7 sets, daily range): BP systolic 109–151; BP diastolic 54–75; PULSE 92–106; RESP 16–24; TEMP 96.1–98; O2SAT 95–99
[2016-10-30] MEDS ORDERED: IOHEXOL 350 MG/ML 10 ML VIAL (for RAD DIAG) IV ONE (01:29)
--- NOTE | 2016-10-30 01:42 | RADRPT ---
EXAM DATE/TIME: 10/30/2016 01:26 [place] COMPARISON: No previous studies available for comparison. INDICATIONS : Abdominal pain and increasing abdominal distention. IV CONTRAST: 90 cc Omnipaque 350 (iohexol) IV ORAL CONTRAST: No oral contrast ingested. RADIATION DOSE: 4.51 CTDIvol (mGy) MEDICAL HISTORY : Unable to obtain SURGICAL HISTORY : Unable to obtain ENCOUNTER: Initial ACUITY: 2 days PAIN SCALE: 8/10 LOCATION: Bilateral abdomen TECHNIQUE: Volumetric scanning of the abdomen and pelvis was performed. Using automated exposure control and ad justment of the mA and/or kV according to patient size, radiation dose was kept as low as reasonably achievable to obtain optimal diagnostic quality images. FINDINGS: CT Abdomen: The liver, pancreas, kidneys, adrenals are unremarkable. There is no evidence for any armando reciable pathological adenopathy, free fluid, or bowel obstruction. There is slight superior endplat e depression of T12 of indeterminate age. Small pericardial effusion is seen with maximum thickness o f 1.3 cm. Chronic vascular calcifications are present involving the aorta, iliac arteries without any significant stenosis or aneurysmal dilatations for technique. Slight degree of somewhat linear irreg ular opacity is seen in the right lung base mostly consistent with scarring. There are dilated blood vessels coursing around the spleen in the left upper quadrant with surgical clips at this site. The s pleen is somewhat rounded in appearance and the patient may have had surgery involving the spleen and the exact nature of the patient's prior surgery is not known to us. CT pelvis: There is no evidence for mass, abscess formation, or any significant adenopathy within the pelvis. There is moderate amount of stool throughout the colon. CONCLUSION: 1. Small pericardial effusion. 2. Slight superior endplate depression of T12 of indeterminate age. Stevo Patterson MD on October 30, 2016 at 1:36 Board Certified Radiologist. This report was verified electronically.
[2016-10-30] MEDS ORDERED: BISACODYL 10 MG SUPP RECTAL ONE (02:15)
[2016-10-30] MEDS: oxyCODONE/ACETAMINOPHEN 5 MG/325 MG TAB PO PRN ×4 (02:22→14:54)
[2016-10-30] MEDS: LEVOTHYROXINE SODIUM 75 MCG TAB PO SCH (06:19)
[2016-10-30] MEDS: RESP: BUDESONIDE 0.5 MG/2 ML NEB NEB SCH (07:53)
[2016-10-30] MEDS: RESP: ALBUTEROL 2.5 MG/IPRATROPIUM 0.5 MG NEB (SCH) INH (07:53)
[2016-10-30] MEDS: LISINOPRIL 5 MG TAB PO SCH (08:56)
[2016-10-30] MEDS: guaiFENesin E.R. 600 MG TAB PO SCH (08:56)
[2016-10-30] MEDS: AZITHROMYCIN 250 MG TAB PO SCH (08:56)
[2016-10-30] MEDS ORDERED: predniSONE 20 MG TAB PO SCH (09:00)
[2016-10-30] MEDS: ENOXAPARIN SODIUM 40 MG/0.4 ML SYRINGE SQ SCH (11:15)
--- NOTE | 2016-10-30 12:22 | HHI.PR ---
Subjective Remarks Follow-up COPD exacerbation 10/30/16-patient seen and examined, chronic complaints of abdominal pain however denies any nausea and vomiting. CT abdomen unremarkable. Denies any chest pain or shortness of breath. Objective Vitals Vital Signs Date Time Temp Pulse Resp B/P Pulse Ox O2 Delivery O2 Flow Rate FiO2 10/30/16 11:33 97.3 106 21 151/72 98 10/30/16 09:12 Nasal Cannula 3.00 10/30/16 07:53 99 Nasal Cannula 2.00 10/30/16 07:50 Nasal Cannula 3.00 10/30/16 07:33 96.1 92 21 109/54 95 10/30/16 04:00 97.3 96 20 126/75 97 10/30/16 00:00 96.7 93 24 120/65 96 10/29/16 20:52 96 Nasal Cannula 3.00 10/29/16 20:00 99.0 100 24 155/94 98 10/29/16 16:00 98.7 98 18 140/66 98 I/O 10/29/16 10/29/16 10/29/16 10/30/16 10/30/16 10/30/16 07:00 15:00 23:00 07:00 15:00 23:00 Intake Total 780 ml 1500 ml 780 ml Balance 780 ml 1500 ml 780 ml Intake Oral 780 ml 1500 ml 780 ml # Voids 3 8 3 # Bowel Movements 0 2 0 Result Diagram: 10/29/16 0553 10/29/16 0553 Imaging Last Impressions Abdomen/Pelvis CT 10/30/16 0058 Signed Impressions: Service Date/Time: Sunday, October 30, 2016 01:26 - CONCLUSION: 1. Small pericardial effusion. 2. Slight superior endplate depression of T12 of indeterminate age. Stevo Patterson MD Chest X-Ray 10/25/16 0848 Signed Impressions: Service Date/Time: Tuesday, October 25, 2016 09:09 - CONCLUSION: 1. Advanced COPD changes. No acute abnormality. Enrrique Lewis MD Objective Remarks GENERAL: NAD SKIN: Warm and dry. HEAD: Normocephalic. EYES: No scleral icterus. No injection or drainage. NECK: Supple, trachea midline. No JVD or lymphadenopathy. CARDIOVASCULAR: Regular rate and rhythm without murmurs, gallops, or rubs. RESPIRATORY: Breath sounds equal bilaterally. No accessory muscle use. GASTROINTESTINAL: Abdomen soft, +tender, nondistended. MUSCULOSKELETAL: No cyanosis, or edema. BACK: Nontender without obvious deformity. No CVA tenderness. Procedures None A/P Problem List: (1) COPD exacerbation ICD Code: J44.1 Status: Acute (2) Leukocytosis ICD Code: D72.829 Status: Acute Assessment and Plan 50-year-old female with Acute COPD exacerbation on chronic respiratory failure: IMPROVED - Continue bronchodilators scheduled and as needed. - Cont BID pulmicort neb and hold home symbicort. - On Prednisone 60 mg PO daily - Azithromycin 10/29- . Supplemental oxygen as needed. - Percocet to q4 dosing for pleuritic CP. Hyperglycemia: Secondary to steroids. Monitor daily BMP. Hypothyroidism: TSH WNL. Continue Synthroid. Hypertension: Blood pressure is well controlled. Continue lisinopril. Lower extremity cramping: TSH, CPK, Mg WNL. D-dimer negative. Abdominal pain CT abdomen noted and review by me DVT prophylaxis: Lovenox. Problem Qualifiers (1) Leukocytosis: Qualified Code: D72.829 - Leukocytosis, unspecified type Jasbir Yepez MD October 30, 2016 12:22
[2016-10-30] MEDS ORDERED: PRED10PA PO (12:26)
[2016-10-30] MEDS ORDERED: SYMB80AE INH (12:26)
[2016-10-30] MEDS ORDERED: OXYC1TAB63 PO (12:26)
[2016-10-30] MEDS ORDERED: AZIT250T3 PO (12:26)
[2016-10-30] MEDS ORDERED: LISI-519 PO (12:26)
[2016-10-30] MEDS ORDERED: LEVO.075 PO (12:26)
[2016-10-30] MEDS ORDERED: MUCI600T PO (12:26)
--- NOTE | 2016-10-30 12:27 | HHI.DS ---
Discharge Summary Admission Date October 26, 2016 at 11:04 Discharge Date: October 30, 2016 Admitting Diagnosis COPD exacerbation (1) COPD exacerbation ICD Code: J44.1 (2) Leukocytosis ICD Code: D72.829 Procedures None Brief History - From Admission The patient is a 50-year-old female who presented to the emergency department with complaint of worsening shortness of breath over the last 2 days. She reports night sweats, but denies fever or chills. She reports diarrhea and abdominal discomfort, but denies nausea or vomiting. She has chest wall tenderness from coughing. She states that she had to move back onto the streets and was unable to take her oxygen concentrator with her. She has been out of her medications. She did still have some oxygen left in her portable tank. CBC/BMP: 10/29/16 0553 10/29/16 0553 Significant Findings Laboratory Tests Test 10/28/16 10/28/16 10/29/16 11:00 13:05 05:53 Blood Gas HCO3 31 mmol/L (22-26) Blood Gas Base Excess 5.7 mmol/L (-2-2) Arterial Blood Partial 51 mmHg (38-42) Pressure CO2 White Blood Count 12.9 TH/MM3 12.9 TH/MM3 (4.0-11.0) (4.0-11.0) Platelet Count 478 TH/MM3 463 TH/MM3 (150-450) (150-450) Neutrophils (%) (Auto) 91.2 % 85.7 % (16.0-70.0) (16.0-70.0) Lymphocytes (%) (Auto) 4.2 % 8.1 % (9.0-44.0) (9.0-44.0) Neutrophils # (Auto) 11.8 TH/MM3 11.0 TH/MM3 (1.8-7.7) (1.8-7.7) Lymphocytes # (Auto) 0.5 TH/MM3 (1.0-4.8) Sodium Level 134 MEQ/L 135 MEQ/L (136-145) (136-145) Chloride Level 93 MEQ/L 94 MEQ/L (98-107) (98-107) Blood Urea Nitrogen 22 MG/DL (7-18) 19 MG/DL (7-18) Estimat Glomerular Filtration 87 ML/MIN (>89) Rate Random Glucose 246 MG/DL 157 MG/DL (74-106) (74-106) Calcium Level 8.2 MG/DL (8.5-10.1) Mean Corpuscular Hemoglobin 31.1 % Concent (32.0-36.0) Carbon Dioxide Level 32.6 MEQ/L (21.0-32.0) PE at Discharge GENERAL: NAD SKIN: Warm and dry. HEAD: Normocephalic. EYES: No scleral icterus. No injection or drainage. NECK: Supple, trachea midline. No JVD or lymphadenopathy. CARDIOVASCULAR: Regular rate and rhythm without murmurs, gallops, or rubs. RESPIRATORY: Breath sounds equal bilaterally. No accessory muscle use. GASTROINTESTINAL: Abdomen soft, +tender, nondistended. MUSCULOSKELETAL: No cyanosis, or edema. BACK: Nontender without obvious deformity. No CVA tenderness. Hospital Course Acute COPD exacerbation on chronic respiratory failure: IMPROVED - Continue bronchodilators scheduled and as needed. - Cont BID pulmicort neb and hold home symbicort. - On Prednisone 60 mg PO daily - Azithromycin 10/29- . Supplemental oxygen as needed. - Percocet to q4 dosing for pleuritic CP. Hyperglycemia: Secondary to steroids. Monitor daily BMP. Hypothyroidism: TSH WNL. Continue Synthroid. Hypertension: Blood pressure is well controlled. Continue lisinopril. Lower extremity cramping: TSH, CPK, Mg WNL. D-dimer negative. Abdominal pain CT abdomen noted and review by me DVT prophylaxis: Lovenox. Pt Condition on Discharge: Stable Discharge Disposition: Discharge Home Discharge Time: <= 30 minutes Discharge Instructions DIET: Follow Instructions for: Heart Healthy Diet Activities you can perform: Regular-No Restrictions Follow up Referrals: PCP Follow-up - 1 Week New Medications: Prednisone (21) 10 mg tab Dose Pack (Prednisone (21) 10 mg tab Dose Pack) 10 Mg Pack 10 MG PO DIRECTED Inflammation #1 Ref 0 DSPK Azithromycin (Azithromycin) 250 Mg Tab 500 MG PO DAILY Infection #5 TAB Budesonide-Formoterol Inh (Symbicort Inh) 80-4.5 Mcg/Act Aero 1 PUFF INH Q12HR Breathing Treatment #1 Ref 1 INHALER Guaifenesin ER 12 HR (Mucinex ER 12 HR) 600 Mg Odell 600 MG PO BID Infection #20 TAB Levothyroxine (Synthroid) 75 Mcg Tab 75 MCG PO DAILY@06 Thyroid Supplement #30 TAB Lisinopril (Lisinopril) 5 Mg Tab 5 MG PO DAILY Blood Pressure Management #30 TAB Oxycodone-Acetaminophen (Oxycodone-Acetaminophen) 5-325 mg Tab 1 TAB PO Q4H PRN PAIN SCALE 5 TO 7 #10 TAB Continued Medications: Albuterol 18 GM Inh (Ventolin Hfa 18 GM Inh) 90 Mcg/Act Aer 2 PUFF INH Q4-6H PRN SHORTNESS OF BREATH #1 Ref 0 INHALER Albuterol Neb (Albuterol Neb) 2.5 Mg/3 Ml Neb 2.5 MG NEB Q4HR NEB While awake Breathing Treatment #60 Ref 0 NEBULE Hydrocodone-Acetaminophen ([place]) 5-325 mg Tab 1 TAB PO Q8HR PRN PAIN #7 Ref 0 TAB Discontinued Medications: Ciprofloxacin (Ciprofloxacin) 250 Mg Tab 250 MG PO BID Infection #14 Ref 0 TAB Prednisone (21) 10 mg tab Dose Pack (Prednisone (21) 10 mg tab Dose Pack) 10 Mg Pack 10 MG PO DIRECTED Inflammation #1 Ref 0 Jasbir Dutton MD October 30, 2016 12:27
== END 2016-10-30 18:24 | DRG 191 ==
LOC: NEPC 08:36 → NEDA 10:18 → NEPFCDU 13:27 → OBSVTOIN 10-26 11:04 → N06B 10-27 15:08
PROVIDERS: ADMIT Hospitalist; ATTEND Hospitalist
DX: J44.1 Chronic obstructive pulmonary disease with (acute) exacerbation (principal); J96.10 Chronic respiratory failure, unspecified whether with hypoxia or hypercapnia; Z99.81 Dependence on supplemental oxygen; E03.9 Hypothyroidism, unspecified; R10.9 Unspecified abdominal pain; R73.9 Hyperglycemia, unspecified; T38.0X5A Adverse effect of glucocorticoids and synthetic analogues, initial encounter; D72.829 Elevated white blood cell count, unspecified; I10 Essential (primary) hypertension; R73.03 Prediabetes; Z59.0 Homelessness; Z87.891 Personal history of nicotine dependence
CPT/HCPCS: 36600; 71010; 74177; 80048; 80053; 82550; 82805; 82948; 83036; 83735; 83880; 84443; 84484; 85025; 85379; 93005; 94620; 94640; 94664; 94667; 94668; J1650; J1815; J2920; J2930; J7512; J7613; J7626; Q9967

== ENCOUNTER 2017-01-07 18:07 | Inpatient (IN) | payer MEDICARE, OTHER ==
[~2017-01-07] VITALS: Ht 162.6 cm; Wt 44.5 kg
[2017-01-07] VITALS (14 sets, daily range): BP systolic 100–211; BP diastolic 62–99; PULSE 76–137; RESP 16–40; TEMP 98.1–99; O2SAT 99–100
[~2017-01-07 18:07] MED LIST changes: +AZIT250T3 PO; -CIPR250T2 PO; +LEVO.075 PO; +OXYC1TAB63 PO
[2017-01-07] MEDS ORDERED: ETOMIDATE 20 MG/10 ML VIAL ONE (18:16)
[2017-01-07] MEDS ORDERED: SUCCINYLCHOLINE CHLORIDE 200 MG/10 ML VIAL ONE (18:17)
[2017-01-07] MEDS ORDERED: PROPOFOL 1000 MG/100 ML INJ 100 ML ONE (18:23)
[2017-01-07] MEDS ORDERED: ETOMIDATE 20 MG/10 ML VIAL IVP ONE (18:30)
[2017-01-07] MEDS ORDERED: SODIUM CHLORIDE 0.9% FLUSH 10 ML FLUSH IVF PRN (18:30)
[2017-01-07] MEDS ORDERED: GUAI1TAB PO (18:46)
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
[2017-01-07] MEDS: RESP: ALBUTEROL 2.5 MG/IPRATROPIUM 0.5 MG NEB (SCH) INH ×2 (18:52→19:54)
--- NOTE | 2017-01-07 18:54 | RADRPT ---
EXAM DATE/TIME: 01/07/2017 18:23 [facility] COMPARISON: CHEST SINGLE AP, October 25, 2016, 9:09. INDICATIONS : Evaluate intubation MEDICAL HISTORY : Chronic obstructive pulmonary disease. SURGICAL HISTORY : None. ENCOUNTER: Initial ACUITY: 1 day PAIN SCORE: Non-responsive. LOCATION: chest FINDINGS: Endotracheal tube tip is located at the level of the clavicles. Gastric tube tip and side-port proje ct within the stomach. The lungs are clear and symmetrically aerated. The heart is normal size. Mu ltiple hemoclips in the left neck. CONCLUSION: ET tube tip in the upper thoracic trachea. Richard Neri MD on January 07, 2017 at 18:50 Board Certified Radiologist. This report was verified electronically.
[2017-01-07] MEDS ORDERED: fentaNYL DRIP 250 ML IV SCH (19:00)
[2017-01-07] MEDS ORDERED: fentaNYL DRIP 250 ML ONE (19:03)
[2017-01-07 19:10] LABS: AUTOMATED NEUTROPHIL # 5.6 TH/MM3 (1.8-7.7); BASOPHIL # 0.1 TH/MM3 (0-0.2); BASOPHIL % 0.6 % (0.0-2.0); EOSINOPHIL # 0.4 TH/MM3 (0-0.4); EOSINOPHIL % 2.6 % (0.0-4.0); HEMATOCRIT 40.4 % (35.0-46.0); LYMPH % 49.5 % (9.0-44.0); MEAN CELL VOLUME 92.5 FL (80.0-100.0); MEAN CORPUSCULAR HEMOGLOBIN 30.6 PG (27.0-34.0); MEAN CORPUSCULAR HGB CONC 33.1 % (32.0-36.0); MONO % 12.4 % (0.0-8.0); NEUT % 34.9 % (16.0-70.0); PLATELET COUNT 358 TH/MM3 (150-450); RED BLOOD COUNT 4.37 MIL/MM3 (4.00-5.30); RED CELL DISTRIBUTION WIDTH 15.6 % (11.6-17.2); WHITE BLOOD COUNT 16.1 TH/MM3 (4.0-11.0)
[2017-01-07 19:12] LABS: HEMO FLAGS AUTO DIFF
[2017-01-07] MEDS ORDERED: MISCELLANEOUS NURSING INFORMATION XX SCH (19:15)
[2017-01-07] MEDS ORDERED: ACETAMINOPHEN 325 MG TAB PO PRN (19:15)
[2017-01-07] MEDS ORDERED: LACTULOSE SYRUP 20 GM/30 ML CUP PO PRN (19:15)
[2017-01-07] MEDS ORDERED: SENNOSIDES 8.6 MG TAB PO PRN (19:15)
[2017-01-07] MEDS ORDERED: CHLORHEXIDINE GLUCONATE 2 % 1 PACK (2 CLOTHS) TOP PRN (19:15)
[2017-01-07] MEDS ORDERED: SODIUM CHLORIDE 0.9% FLUSH 10 ML FLUSH PRN (19:15)
[2017-01-07] MEDS ORDERED: MAGNESIUM HYDROXIDE SUSP 30 ML CUP PO PRN (19:15)
[2017-01-07] MEDS ORDERED: BISACODYL 10 MG SUPP RECTAL PRN (19:15)
[2017-01-07] MEDS: PROPOFOL 1000 MG/100 ML INJ 100 ML IV SCH (19:16)
--- NOTE | 2017-01-07 19:23 | HHI.HP ---
HPI Service Critical Care Medicine Primary Care Physician Unknown Admission Diagnosis acute resp failure, COPD exac Diagnosis: Travel History International Travel<30 Days: No Contact w/Intl Traveler <30 Da: No Traveled to Known Affected Are: No History of Present Illness 51-year-old female presented with profound respiratory distress. She has history of severe COPD. She wears 3 L nasal cannula [id number] and uses nebulizers. She ran out of her nebulizer 2 days ago. She lives in an apartment with multiple smoking roommates and paramedics reported that there was a lot of smoking going on when they arrived. Symptoms are severe. Duration 3 days. No alleviating factors. She is not having cough or chest pain or fever. She had IV Solu-Medrol and 2 nebulizers in route. In the emergency department she was in severe respiratory distress with O2 sat around 60s and was intubated by ER attending for hypoxemic respiratory failure. Review of Systems ROS Unobtainable patient is sedated and intubated Past Family Social History Allergies: Coded Allergies: No Known Allergies (Unverified , 10/25/16) Past Medical History COPD Hypothyroidism Hypertension CHF Past Surgical History None Reported Medications Reported Meds & Active Scripts Active Oxycodone-Acetaminophen 5-325 mg Tab 1 Tab PO Q4H PRN Symbicort Inh (Budesonide/Formoterol Fumarate) 80-4.5 Mcg/Act Aero 1 Puff INH Q12HR Lisinopril 5 Mg Tab 5 Mg PO DAILY Synthroid (Levothyroxine Sodium) 75 Mcg Tab 75 Mcg PO DAILY@06 Oxygen tank (Oxygen) 1 Ea Tank 2 Liter CHRISTIANA.CANULA CONTINUOUS Oxygen Concentrator Portable Gaseous 2 L/min via Nasal Cannula Continuous For 99 months Ventolin Hfa 18 GM Inh (Albuterol Sulfate) 90 Mcg/Act Aer 2 Puff INH Q4-6H PRN Albuterol Neb (Albuterol Sulfate) 2.5 Mg/3 Ml Neb 2.5 Mg NEB Q4HR NEB While awake Reported Mucus Relief ER 12 HR (Guaifenesin) 600 Mg Odell 600 Mg PO Q12HR Active Ordered Medications Current Medications Medications (Trade) Dose Ordered Sig/Isadora Route PRN Reason Start Time Stop Time Status Last Admin Dose Admin Propofol (Diprivan 1000 Mg/100ml Inj) 100 ml @ 0 mls/hr TITRATE IV 01/07/17 18:30 01/07/17 19:16 Sodium Chloride 2 ml 2 ml UNSCH PRN IVF FLUSH AFTER USING IV ACCESS 01/07/17 18:30 Fentanyl Citrate (fentaNYL DRIP) 250 ml @ 0 mls/hr TITRATE IV 01/07/17 19:00 01/07/17 19:16 Levothyroxine Sodium (Synthroid) 75 mcg DAILY@06 PO 01/08/17 06:00 Lisinopril 5 mg 5 mg DAILY PO 01/08/17 09:00 Sodium Chloride (NS 1000 ml Inj) 1,000 ml @ 84 mls/hr [id number] IV 01/07/17 19:13 UNV Sodium Chloride (NS Flush) 2 ml UNSCH PRN .XX FLUSH AFTER USING IV ACCESS 01/07/17 19:15 UNV Sodium Chloride (NS Flush) 2 ml BID .XX 01/07/17 21:00 UNV Acetaminophen (Tylenol) 650 mg Q6H PRN PO PAIN 1-10 AND/OR FEVER >101F 01/07/17 19:15 UNV Oxycodone/ Acetaminophen (Percocet 5-325 Mg) 1 tab Q4H PRN PO PAIN SCALE 1 TO 5 01/07/17 19:15 UNV Morphine Sulfate (Morphine Inj) 2 mg Q2H PRN IV PAIN SCALE 6 TO 10 01/07/17 19:15 UNV Famotidine (Pepcid Inj) 20 mg Q12HR IV PUSH 01/07/17 21:00 UNV Heparin Sodium (Porcine) (Heparin Inj) 5,000 units Q12H SQ 01/07/17 19:15 UNV Miscellaneous Information 1 Q361D XX 01/07/17 19:15 UNV Chlorhexidine Gluconate (Chlorhexidine 2% Cloth) 3 pack Taper DAILY@04 TOP 01/08/17 04:00 01/04/18 03:59 UNV Chlorhexidine Gluconate (Chlorhexidine 2% Cloth) 3 pack UNSCH PRN TOP HYGIENIC CARE 01/07/17 19:15 UNV Senna/Docusate Sodium (Rima-Colace) 1 tab BID PO 01/07/17 21:00 UNV Magnesium Hydroxide (Milk Of Magnesia Liq) 30 ml Q12H PRN PO MILD - MODERATE CONSTIPATION 01/07/17 19:15 UNV Sennosides (Senokot) 17.2 mg Q12H PRN PO MODERATE - SEVERE CONSTIPATION 01/07/17 19:15 UNV Bisacodyl (Dulcolax Supp) 10 mg DAILY PRN RECTAL SEVERE CONSITIPATION 01/07/17 19:15 UNV Lactulose (Lactulose Liq) 30 ml DAILY PRN PO SEVERE CONSITIPATION 01/07/17 19:15 UNV Methylprednisolone Sodium Succinate 40 mg 40 mg Q8HR IV PUSH 01/07/17 22:00 UNV Levofloxacin/ Dextrose (Levaquin 750 Mg Premix Inj) 150 ml @ 100 mls/hr Q24H IV 01/07/17 19:30 UNV Family History Positive for Cancer, diabetes, heart disease Social History She quit smoking a few months ago. Has had an occasional cigarette since then. Denies alcohol or illicit drug use. Physical Exam Vital Signs Vital Signs Date Time Temp Pulse Resp B/P Pulse Ox O2 Delivery O2 Flow Rate FiO2 01/07/17 18:49 100 01/07/17 18:38 100 100 01/07/17 18:31 129 27 120/80 100 Ventilator 100 01/07/17 18:31 100 100 01/07/17 18:27 142 40 01/07/17 18:09 98.1 76 20 211/99 100 Room Air Physical Exam GENERAL: Elderly appearing woman sedated and mechanically ventilated SKIN: Warm and dry. HEAD: Normocephalic. EYES: No scleral icterus. No injection or drainage. NECK: Supple, trachea midline. No JVD or lymphadenopathy. CARDIOVASCULAR: Regular rate and rhythm without murmurs, gallops, or rubs. RESPIRATORY: Breath sounds equal bilaterally. No accessory muscle use. GASTROINTESTINAL: Abdomen soft, non-tender, nondistended. MUSCULOSKELETAL: No cyanosis, or edema. BACK: Nontender without obvious deformity. No CVA tenderness. EXTREMITIES: No clubbing cyanosis or edema Laboratory Laboratory Tests Test 01/07/17 18:40 White Blood Count 16.1 Red Blood Count 4.37 Hemoglobin 13.4 Hematocrit 40.4 Mean Corpuscular Volume 92.5 Mean Corpuscular Hemoglobin 30.6 Mean Corpuscular Hemoglobin 33.1 Concent Red Cell Distribution Width 15.6 Platelet Count 358 Mean Platelet Volume 9.3 Neutrophils (%) (Auto) 34.9 Lymphocytes (%) (Auto) 49.5 Monocytes (%) (Auto) 12.4 Eosinophils (%) (Auto) 2.6 Basophils (%) (Auto) 0.6 Neutrophils # (Auto) 5.6 Lymphocytes # (Auto) 8.0 Monocytes # (Auto) 2.0 Eosinophils # (Auto) 0.4 Basophils # (Auto) 0.1 CBC Comment AUTO DIFF Result Diagram: 01/07/17 1840 Imaging Last 24 hours Impressions Chest X-Ray 01/07/17 0000 Signed Impressions: Service Date/Time: Saturday, January 07, 2017 18:23 - CONCLUSION: ET tube tip in the upper thoracic trachea. Richard Neri MD Assessment and Plan Assessment and Plan Respiratory failure - Severe hypoxemic respiratory failure - Underlying COPD - IV steroids - Empiric antibiotics - Cultures - DuoNeb scheduled and when necessary - SBT daily - CXR and ABG to follow Hypertension - Continue home meds lisinopril Hypothyroidism - Synthroid DVT GI prophylaxis - Teds SCDs and subcutaneous heparin - Pepcid Critical Care: The total critical care time was 35 minutes. Time to perform other separately billable procedures was not included in the critical care time. Nickolas Duran MD Jan 07, 2017 19:23
[2017-01-07 19:28] LABS: BICARBONATE 37.1 MEQ/L (21.0-32.0); POTASSIUM 4.7 MEQ/L (3.5-5.1)
[2017-01-07 19:41] LABS: BANDS 3 % (0-6); BASOPHILS 1 % (0-2); EOSINOPHILS 4 % (0-4); NEUTROPHIL # MANUAL DIFF 4.3 TH/MM3 (1.8-7.7); PLATELET ESTIMATE SMEAR NORMAL (NORMAL); PLATELET MORPHOLOGY NORMAL (NORMAL); POLYS (SEG NEUTROPHILS) 24 % (16-70); SCAN/DIFF FINAL DIFF MANUAL; WBC DIFF SAMPLE 100
[2017-01-07] MEDS ORDERED: MIDAZOLAM 100 MG/ML INJ 100 ML IV SCH (19:45)
[2017-01-07] MEDS ORDERED: MIDAZOLAM 100 MG/ML INJ 100 ML ONE (19:50)
[2017-01-07] MEDS: SODIUM CHLOR 0.9% 1000 ML INJ 1,000 ML IV SCH (19:53)
[2017-01-07] MEDS: LEVOFLOXACIN 750 MG PREMIX INJ 150 ML IV SCH (19:53)
[2017-01-07 20:32] LABS: BLOOD GAS BASE EXCESS 8.3 mmol/L (-2-2); BLOOD GAS CARBOXYHEMOGLOBIN 2.3 % (0-4); BLOOD GAS HCO3 35 mmol/L (22-26); BLOOD GAS METHEMOGLOBIN 0.8 % (0-2); BLOOD GAS O2 HGB SATURATION 97 % (90-100); BLOOD GAS OXYGEN CONTENT 20.3 Vol % (12.0-20.0); BLOOD GAS PCO2 79 mmHg (38-42); BLOOD GAS PO2 460 mmHG (61-120); BLOOD GAS TOTAL HGB 14.1 G/DL (12.0-16.0); CRITICAL VALUE YES; OXYGEN DEVICE VENTILATOR; TEMP CORR TO 98.6
[2017-01-07 20:33] LABS: DRAW SITE RT RADIAL; FIO2 100 %; NUMBER OF ARTERIAL PUNCTURES 1; STAT YES; ULNAR PULSE PRESENT; VENT SETTINGS AC/14/450/PEEP5
[2017-01-07] MEDS: methylPREDNISolone SOD SUCC 40 MG/1 ML VIAL IV PUSH SCH (21:28)
[2017-01-07] MEDS: DOCUSATE SODIUM 50 MG/SENNA 8.6 MG TAB PO SCH (21:28)
[2017-01-07] MEDS: HEPARIN SODIUM - SQ 10,000 UNITS/ML VIAL SQ SCH (21:28)
[2017-01-07] MEDS: SODIUM CHLORIDE 0.9% FLUSH 10 ML FLUSH SCH (21:40)
[2017-01-07] MEDS: FAMOTIDINE 20 MG/2 ML VIAL IV PUSH SCH (21:40)
[2017-01-08] VITALS (13 sets, daily range): BP systolic 118–161; BP diastolic 69–88; PULSE 90–120; RESP 11–20; TEMP 98.1–99.2; O2SAT 95–99
[2017-01-08] MEDS: RESP: ALBUTEROL 2.5 MG/IPRATROPIUM 0.5 MG NEB (SCH) INH ×6 (00:42→20:07)
[2017-01-08] MEDS: PROPOFOL 1000 MG/100 ML INJ 100 ML IV SCH ×2 (01:19→08:39)
[2017-01-08 02:06] LABS: AMPHETAMINE, URINE NEG (NEG); BARBITURATES, URINE NEG (NEG); COCAINE, URINE NEG (NEG)
[2017-01-08] MEDS: CHLORHEXIDINE GLUCONATE 2 % 1 PACK (2 CLOTHS) TOP SCH (04:00)
--- NOTE | 2017-01-08 05:33 | RADRPT ---
EXAM DATE/TIME: 01/08/2017 04:55 [facility] COMPARISON: CHEST SINGLE AP, January 07, 2017, 18:23. INDICATIONS : Post CABG MEDICAL HISTORY : Chronic obstructive pulmonary disease. SURGICAL HISTORY : CABG. ENCOUNTER: Subsequent ACUITY: 2 days PAIN SCORE: Non-responsive. LOCATION: Bilateral chest FINDINGS: A single AP semierect view of the chest was obtained again demonstrating endotracheal tube in place w ith the tip approximately 4 cm above the henrique. Nasogastric tube remains in place. The lungs remain hyperinflated with no confluent infiltrates or effusions. The heart size is within normal limits. Mul tiple overlying electrocardiogram leads are noted. CONCLUSION: No significant change. Jared Ross MD on January 08, 2017 at 5:30 Board Certified Radiologist. This report was verified electronically.
[2017-01-08] MEDS: LEVOTHYROXINE SODIUM 75 MCG TAB PO SCH (06:00)
[2017-01-08 06:10] LABS: BLOOD GAS BASE EXCESS 4.9 mmol/L (-2-2); BLOOD GAS CARBOXYHEMOGLOBIN 1.4 % (0-4); BLOOD GAS HCO3 29 mmol/L (22-26); BLOOD GAS METHEMOGLOBIN 1.2 % (0-2); BLOOD GAS O2 HGB SATURATION 96 % (90-100); BLOOD GAS OXYGEN CONTENT 14.9 Vol % (12.0-20.0); BLOOD GAS PCO2 39 mmHg (38-42); BLOOD GAS PO2 104 mmHg (61-120); CRITICAL VALUE NO; DRAW SITE RT RADIAL; FIO2 35 %; NUMBER OF ARTERIAL PUNCTURES 1; OXYGEN DEVICE VENTILATOR; STAT NO; TEMP CORR TO 98.6; ULNAR PULSE PRESENT; VENT SETTINGS AC18/450/5PEEP
[2017-01-08 06:41] LABS: AUTOMATED NEUTROPHIL # 4.8 TH/MM3 (1.8-7.7); BASOPHIL % 0.1 % (0.0-2.0); HEMATOCRIT 33.4 % (35.0-46.0); HEMO FLAGS DIFF FINAL; LYMPH % 13.1 % (9.0-44.0); LYMPHOCYTE # 0.7 TH/MM3 (1.0-4.8); MEAN CELL VOLUME 89.7 FL (80.0-100.0); MEAN CORPUSCULAR HEMOGLOBIN 30.1 PG (27.0-34.0); MEAN CORPUSCULAR HGB CONC 33.6 % (32.0-36.0); MONO % 2.5 % (0.0-8.0); NEUT % 84.3 % (16.0-70.0); PLATELET COUNT 240 TH/MM3 (150-450); RED BLOOD COUNT 3.72 MIL/MM3 (4.00-5.30); RED CELL DISTRIBUTION WIDTH 15.4 % (11.6-17.2); WHITE BLOOD COUNT 5.7 TH/MM3 (4.0-11.0)
[2017-01-08 06:57] LABS: ANION GAP 9 MEQ/L (5-15); AST (GOT) 19 U/L (15-37); BICARBONATE 28.8 MEQ/L (21.0-32.0); BLOOD UREA NITROGEN 12 MG/DL (7-18); CHLORIDE 102 MEQ/L (98-107); GLOMERULAR FILTRATION RATE 147 ML/MIN (>89); MAGNESIUM 1.7 MG/DL (1.5-2.5); POTASSIUM 3.4 MEQ/L (3.5-5.1); SODIUM (NA) 140 MEQ/L (136-145)
[2017-01-08 07:00] LABS: ALKALINE PHOSPHATASE 67 U/L (45-117); ALT (GPT) 19 U/L (10-53); TOTAL BILIRUBIN ADULT 0.4 MG/DL (0.2-1.0)
[2017-01-08] MEDS: SODIUM CHLOR 0.9% 1000 ML INJ 1,000 ML IV SCH ×2 (07:08→19:03)
[2017-01-08] MEDS: HEPARIN SODIUM - SQ 10,000 UNITS/ML VIAL SQ SCH ×2 (08:38→20:02)
[2017-01-08] MEDS: SODIUM CHLORIDE 0.9% FLUSH 10 ML FLUSH SCH ×2 (08:38→20:03)
[2017-01-08] MEDS: methylPREDNISolone SOD SUCC 40 MG/1 ML VIAL IV PUSH SCH ×3 (08:38→21:56)
[2017-01-08] MEDS: LISINOPRIL 5 MG TAB PO SCH (08:38)
[2017-01-08] MEDS: DOCUSATE SODIUM 50 MG/SENNA 8.6 MG TAB PO SCH ×2 (08:38→20:02)
[2017-01-08] MEDS: FAMOTIDINE 20 MG/2 ML VIAL IV PUSH SCH ×2 (08:44→20:02)
--- NOTE | 2017-01-08 10:14 | HHI.CCPN ---
Subjective Remarks/Hospital Course 01/07: 51-year-old female presented with profound respiratory distress. She has history of severe COPD. She wears 3 L nasal cannula [id number] and uses nebulizers. She ran out of her nebulizer 2 days ago. She lives in an apartment with multiple smoking roommates and paramedics reported that there was a lot of smoking going on when they arrived. Symptoms are severe. Duration 3 days. No alleviating factors. She is not having cough or chest pain or fever. She had IV Solu-Medrol and 2 nebulizers in route. In the emergency department she was in severe respiratory distress with O2 sat around 60s and was intubated by ER attending for hypoxemic respiratory failure. 01/08: Remains sedated, orally intubated on mechanical ventilation. Objective Vital Signs Date Time Temp Pulse Resp B/P Pulse Ox O2 Delivery O2 Flow Rate FiO2 01/08/17 07:21 97 35 01/08/17 07:00 99.0 95 18 118/79 01/07/17 20:19 Auto-Vent Result Diagram: 01/08/17 0547 01/08/17 0547 Other Results Laboratory Tests Test 01/07/17 01/08/17 19:30 06:00 Blood Gas Puncture Site RT RADIAL RT RADIAL Blood Gas Patient Temperature 98.6 98.6 Blood Gas HCO3 35 mmol/L 29 mmol/L (22-26) (22-26) Blood Gas Base Excess 8.3 mmol/L 4.9 mmol/L (-2-2) (-2-2) Blood Gas Oxygen Saturation 97 % (90-100) 96 % (90-100) Arterial Blood pH 7.27 7.48 (7.380-7.420) (7.380-7.420) Arterial Blood Partial 79 mmHg (38-42) 39 mmHg (38-42) Pressure CO2 Arterial Blood Partial 460 mmHG 104 mmHg Pressure O2 (61-120) (61-120) Arterial Blood Oxygen Content 20.3 Vol % 14.9 Vol % (12.0-20.0) (12.0-20.0) Arterial Blood 2.3 % (0-4) 1.4 % (0-4) Carboxyhemoglobin Arterial Blood Methemoglobin 0.8 % (0-2) 1.2 % (0-2) Blood Gas Hemoglobin 14.1 G/DL 11.0 G/DL (12.0-16.0) (12.0-16.0) Oxygen Delivery Device VENTILATOR VENTILATOR Blood Gas Ventilator Setting AC/14/450/PEEP5 AC18/450/5PEEP Blood Gas Inspired Oxygen 100 % 35 % Imaging Last 24 hours Impressions Chest X-Ray 01/07/17 0000 Signed Impressions: Service Date/Time: Saturday, January 07, 2017 18:23 - CONCLUSION: ET tube tip in the upper thoracic trachea. Richard Neri MD Objective Remarks GENERAL: Elderly appearing woman sedated and mechanically ventilated SKIN: Warm and dry. HEAD: Normocephalic. EYES: No scleral icterus. No injection or drainage. NECK: Supple, trachea midline. No JVD or lymphadenopathy. CARDIOVASCULAR: Regular rate and rhythm without murmurs, gallops, or rubs. RESPIRATORY: Breath sounds equal bilaterally. No accessory muscle use. GASTROINTESTINAL: Abdomen soft, non-tender, nondistended. MUSCULOSKELETAL: No cyanosis, or edema. BACK: Nontender without obvious deformity. No CVA tenderness. EXTREMITIES: No clubbing cyanosis or edema Neuro: Sedated, orally intubated on mechanical ventilation. Grossly nonfocal A/P Assessment and Plan Respiratory failure - Severe hypoxemic respiratory failure - Underlying COPD - IV steroids - Empiric antibiotics - Cultures - DuoNeb scheduled and when necessary - SBT daily - CXR and ABG to follow - Start tube feeds and advanced to goal as tolerated Hypertension - Continue home meds lisinopril Hypothyroidism - Synthroid DVT GI prophylaxis - Teds SCDs and subcutaneous heparin - Pepcid Critical Care: The total critical care time was 35 minutes. Time to perform other separately billable procedures was not included in the critical care time. Lnace Barron MD Jan 08, 2017 10:14
[2017-01-08] MEDS: oxyCODONE/ACETAMINOPHEN 5 MG/325 MG TAB PO PRN (20:01)
[2017-01-08] MEDS: LEVOFLOXACIN 750 MG PREMIX INJ 150 ML IV SCH (20:10)
[2017-01-09] VITALS (13 sets, daily range): BP systolic 147–190; BP diastolic 80–110; PULSE 90–111; RESP 16–20; TEMP 98–98.4; O2SAT 95–99
[2017-01-09] MEDS: RESP: ALBUTEROL 2.5 MG/IPRATROPIUM 0.5 MG NEB (SCH) INH ×7 (00:12→23:45)
[2017-01-09] MEDS: oxyCODONE/ACETAMINOPHEN 5 MG/325 MG TAB PO PRN ×4 (00:18→13:09)
[2017-01-09] MEDS: CHLORHEXIDINE GLUCONATE 2 % 1 PACK (2 CLOTHS) TOP SCH (03:53)
[2017-01-09] MEDS: LEVOTHYROXINE SODIUM 75 MCG TAB PO SCH (05:06)
[2017-01-09] MEDS: methylPREDNISolone SOD SUCC 40 MG/1 ML VIAL IV PUSH SCH ×3 (05:06→20:42)
[2017-01-09] MEDS: SODIUM CHLOR 0.9% 1000 ML INJ 1,000 ML IV SCH (05:07)
[2017-01-09 06:36] LABS: ALKALINE PHOSPHATASE 66 U/L (45-117); ALT (GPT) 18 U/L (10-53); TOTAL BILIRUBIN ADULT 0.2 MG/DL (0.2-1.0)
[2017-01-09 06:38] LABS: ANION GAP 7 MEQ/L (5-15); AST (GOT) 22 U/L (15-37); BICARBONATE 28.5 MEQ/L (21.0-32.0); BLOOD UREA NITROGEN 15 MG/DL (7-18); CHLORIDE 107 MEQ/L (98-107); GLOMERULAR FILTRATION RATE 147 ML/MIN (>89); SODIUM (NA) 142 MEQ/L (136-145)
[2017-01-09 06:44] LABS: POTASSIUM 4.1 MEQ/L (3.5-5.1)
[2017-01-09 06:52] LABS: BASOPHIL % 0.4 % (0.0-2.0); HEMATOCRIT 33.2 % (35.0-46.0); LYMPH % 20.7 % (9.0-44.0); LYMPHOCYTE # 2.4 TH/MM3 (1.0-4.8); MEAN CELL VOLUME 90.7 FL (80.0-100.0); MEAN CORPUSCULAR HEMOGLOBIN 30.2 PG (27.0-34.0); MEAN CORPUSCULAR HGB CONC 33.2 % (32.0-36.0); MONO % 9.4 % (0.0-8.0); NEUT % 69.5 % (16.0-70.0); PLATELET COUNT 175 TH/MM3 (150-450); RED BLOOD COUNT 3.65 MIL/MM3 (4.00-5.30); RED CELL DISTRIBUTION WIDTH 15.8 % (11.6-17.2); WHITE BLOOD COUNT 11.5 TH/MM3 (4.0-11.0)
[2017-01-09 07:44] LABS: HEMO FLAGS AUTO DIFF
[2017-01-09 07:46] LABS: BANDS 13 % (0-6); NEUTROPHIL # MANUAL DIFF 7.9 TH/MM3 (1.8-7.7); POLYS (SEG NEUTROPHILS) 56 % (16-70); WBC DIFF SAMPLE 100
[2017-01-09 07:47] LABS: OVALOCYTES 1+ (NORMAL); PLATELET ESTIMATE SMEAR NORMAL (NORMAL); PLATELET MORPHOLOGY NORMAL (NORMAL); SCAN/DIFF FINAL DIFF MANUAL
[2017-01-09] MEDS: FAMOTIDINE 20 MG/2 ML VIAL IV PUSH SCH ×2 (08:32→20:42)
[2017-01-09] MEDS: LISINOPRIL 5 MG TAB PO SCH (08:33)
[2017-01-09] MEDS: HEPARIN SODIUM - SQ 10,000 UNITS/ML VIAL SQ SCH ×2 (08:33→20:43)
[2017-01-09] MEDS: SODIUM CHLORIDE 0.9% FLUSH 10 ML FLUSH SCH ×2 (08:34→20:43)
[2017-01-09] MEDS: DOCUSATE SODIUM 50 MG/SENNA 8.6 MG TAB PO SCH ×2 (08:36→20:44)
--- NOTE | 2017-01-09 09:08 | HHI.PR ---
Subjective Remarks Patient in bed. Says she feels improving today. No fever or chills. No n/v/d/c. Patient still with sob, satting well on 3L NC at this time. No fever or chills. No wheezing at this time. Not much cough, feels chest is congested. Patient is however noted jittery, and anxious, poss withdrawals ?. Objective Vitals Vital Signs Date Time Temp Pulse Resp B/P Pulse Ox O2 Delivery O2 Flow Rate FiO2 01/09/17 08:55 97 Nasal Cannula 3.00 01/09/17 03:00 96 01/09/17 03:00 98.3 96 18 152/84 97 01/08/17 23:00 101 01/08/17 23:00 98.1 106 18 133/70 98 01/08/17 20:10 98 Nasal Cannula 3.00 01/08/17 19:00 98.6 120 20 161/82 97 01/08/17 19:00 118 01/08/17 15:00 98.9 107 18 161/88 99 01/08/17 15:00 107 01/08/17 13:44 95 Nasal Cannula 3 01/08/17 11:09 35 01/08/17 11:09 95 35 01/08/17 11:00 90 01/08/17 11:00 99.2 107 11 123/69 97 I/O 01/08/17 01/08/17 01/08/17 01/09/17 01/09/17 01/09/17 06:59 14:59 22:59 06:59 14:59 22:59 Intake Total 1105 ml 1318 ml 1840 ml Output Total 350 ml 550 ml 1200 ml Balance 755 ml 768 ml 640 ml Intake Oral 0 ml 360 ml 720 ml IV Total 1105 ml 958 ml 1120 ml Output Urine Total 250 ml 550 ml 1200 ml Stool Total 0 ml Gastric Drainage Total 100 ml 0 ml # Bowel Movements 0 0 Result Diagram: 01/09/1744701/09/17447 Imaging Last Impressions Chest X-Ray 01/08/17 0600 Signed Impressions: Service Date/Time: Sunday, January 08, 2017 04:55 - CONCLUSION: No significant change. Jared Ross MD Objective Remarks GENERAL: Elderly appearing woman sedated and mechanically ventilated CARDIOVASCULAR: Regular rate and rhythm without murmurs, gallops, or rubs. RESPIRATORY: Breath sounds equal bilaterally. No accessory muscle use. GASTROINTESTINAL: Abdomen soft, non-tender, nondistended. MUSCULOSKELETAL: No cyanosis, or edema. BACK: Nontender without obvious deformity. No CVA tenderness. EXTREMITIES: No clubbing cyanosis or edema Neuro: Sedated, orally intubated on mechanical ventilation. Grossly nonfocal A/P Assessment and Plan Respiratory failure Severe hypoxemic respiratory failure Underlying COPD IV steroids, taper as tolerated and switch to PO Empiric antibiotics Cultures NTD DuoNeb scheduled and when necessary CXR as laura On tube feeds and advanced to goal as tolerated, ST and director religious education following. Hypertension- Continue home meds lisinopril Hypothyroidism - Continue Synthroid Anxiety: can use small dose of ativan prn, monitor respiratory status DVT GI prophylaxis - Teds SCDs and subcutaneous heparin - Pepcid Discussed with the patient, nurse Monitor and transfer to med /surg floor if remains stable. Raven Meneses MD Jan 09, 2017 09:08
[2017-01-09] MEDS ORDERED: XANA1TAB2 PO (10:23)
[2017-01-09] MEDS: LORazepam 0.5 MG TAB PO PRN ×2 (16:41→22:59)
[2017-01-09] MEDS: MORPHINE SULFATE 4 MG/ML INJ IV PRN ×3 (17:58→22:59)
[2017-01-09] MEDS: LEVOFLOXACIN 750 MG PREMIX INJ 150 ML IV SCH (20:43)
[2017-01-09] MEDS: ENALAPRILAT 2.5 MG/2 ML VIAL IV PUSH PRN (20:45)
[2017-01-10] VITALS (10 sets, daily range): BP systolic 156–208; BP diastolic 77–110; PULSE 91–113; RESP 18–20; TEMP 97.7–98.2; O2SAT 94–99
[2017-01-10] MEDS: MORPHINE SULFATE 4 MG/ML INJ IV PRN ×8 (02:00→22:21)
[2017-01-10] MEDS: RESP: ALBUTEROL 2.5 MG/IPRATROPIUM 0.5 MG NEB (SCH) INH ×5 (03:43→20:28)
[2017-01-10] MEDS: CHLORHEXIDINE GLUCONATE 2 % 1 PACK (2 CLOTHS) TOP SCH (04:00)
[2017-01-10] MEDS: ENALAPRILAT 2.5 MG/2 ML VIAL IV PUSH PRN ×2 (04:51→12:13)
[2017-01-10] MEDS: LEVOTHYROXINE SODIUM 75 MCG TAB PO SCH (06:02)
[2017-01-10] MEDS: methylPREDNISolone SOD SUCC 40 MG/1 ML VIAL IV PUSH SCH ×2 (06:02→20:25)
[2017-01-10] MEDS: LORazepam 0.5 MG TAB PO PRN ×2 (06:02→17:33)
[2017-01-10 08:32] LABS: AUTOMATED NEUTROPHIL # 7.6 TH/MM3 (1.8-7.7); BASOPHIL % 0.1 % (0.0-2.0); HEMATOCRIT 38.3 % (35.0-46.0); HEMO FLAGS DIFF FINAL; LYMPH % 13.3 % (9.0-44.0); LYMPHOCYTE # 1.3 TH/MM3 (1.0-4.8); MEAN CELL VOLUME 90.4 FL (80.0-100.0); MEAN CORPUSCULAR HEMOGLOBIN 30.2 PG (27.0-34.0); MEAN CORPUSCULAR HGB CONC 33.5 % (32.0-36.0); MONO % 6.5 % (0.0-8.0); NEUT % 80.1 % (16.0-70.0); PLATELET COUNT 266 TH/MM3 (150-450); RED BLOOD COUNT 4.24 MIL/MM3 (4.00-5.30); RED CELL DISTRIBUTION WIDTH 15.9 % (11.6-17.2); WHITE BLOOD COUNT 9.5 TH/MM3 (4.0-11.0)
[2017-01-10 08:56] LABS: BICARBONATE 33.2 MEQ/L (21.0-32.0); MAGNESIUM 2.4 MG/DL (1.5-2.5); POTASSIUM 4.3 MEQ/L (3.5-5.1)
[2017-01-10] MEDS: HEPARIN SODIUM - SQ 10,000 UNITS/ML VIAL SQ SCH ×2 (09:01→20:27)
[2017-01-10] MEDS: FAMOTIDINE 20 MG/2 ML VIAL IV PUSH SCH ×2 (09:01→20:24)
[2017-01-10] MEDS: LISINOPRIL 5 MG TAB PO SCH (09:01)
[2017-01-10] MEDS: DOCUSATE SODIUM 50 MG/SENNA 8.6 MG TAB PO SCH ×2 (09:01→20:26)
[2017-01-10] MEDS: SODIUM CHLORIDE 0.9% FLUSH 10 ML FLUSH SCH ×2 (09:03→20:22)
--- NOTE | 2017-01-10 09:53 | HHI.PR ---
Subjective Remarks Follow-up visit respiratory failure, COPD with exacerbation, HTN. Patient seen and examined today. Complaints of severe lower back pain, rated 9/10 radiating to lateral side, aggravated by movement, unrelieved by rest. Patient states prior to going to hospital as she slipped and fell on the concrete and she thought that she's can get checked for the back pain also but they have prioritized her shortness of breath and was unable to do an x-ray on her back. States she continues to have shortness of breath especially with exertion, ambulation to the bathroom, but reports improvement compared to when she came into the hospital. Continues to be on 3 L nasal cannula. Patient states that she is on 3 L nasal cannula continuous oxygen at home, with nebulizer treatments in between. States that she doesn't have any nebulizer machine because she handed over her old nebulizer machine without any replacement. Otherwise, denies chest pain, palpitations, headaches, dizziness. Denies fevers , chills, n/v/d. Denies dysuria. Objective Vitals Vital Signs Date Time Temp Pulse Resp B/P Pulse Ox O2 Delivery O2 Flow Rate FiO2 01/10/17 08:15 94 Nasal Cannula 2.00 01/10/17 08:00 98.0 108 20 172/84 97 01/10/17 04:00 98.2 96 18 162/80 95 01/10/17 00:00 97.9 101 18 156/77 99 01/09/17 23:47 99 Nasal Cannula 3.00 01/09/17 20:00 98.1 103 16 165/83 97 148/82 01/09/17 19:25 185/80 190/110 01/09/17 18:00 97 Nasal Cannula 3.00 01/09/17 17:30 98.3 111 18 177/105 97 01/09/17 15:18 98.2 103 20 159/86 97 01/09/17 15:15 105 01/09/17 11:00 104 01/09/17 11:00 98.4 105 20 151/89 95 I/O 01/09/17 01/09/17 01/09/17 01/10/17 01/10/17 01/10/17 07:00 15:00 23:00 07:00 15:00 23:00 Intake Total 1840 ml 1320 ml 360 ml Output Total 1200 ml 1000 ml Balance 640 ml 320 ml 360 ml Intake Oral 720 ml 1320 ml 360 ml IV Total 1120 ml Output Urine Total 1200 ml 1000 ml # Voids 3 4 # Bowel Movements 0 1 0 Result Diagram: 01/10/17 0730 01/10/17 0730 Imaging Last Impressions Chest X-Ray 01/08/17 0600 Signed Impressions: Service Date/Time: Sunday, January 08, 2017 04:55 - CONCLUSION: No significant change. Jared Ross MD Objective Remarks GENERAL: This is a thin-appearing, older than stated age, well-developed patient , in pain. SKIN: Warm and dry. HEENT: Normocephalic. Pupils equal round and reactive. Nose without bleeding. Airway patent. NECK: Trachea midline. CARDIOVASCULAR: Regular rate and rhythm without murmurs, gallops, or rubs. RESPIRATORY: Coarse breath sounds clears with coughing.. Moderate air entry. On 3 L nasal cannula. GASTROINTESTINAL: Abdomen soft, non-tender, nondistended. Bowel Sounds hypoactive. MUSCULOSKELETAL: Extremities without clubbing, cyanosis, or edema. Tenderness to mild palpation mid lower back area. NEUROLOGICAL: Awake and alert. Oriented to time, place, person. Moves all extremities. Normal speech. A/P Problem List: (1) Respiratory failure with hypoxia ICD Code: J96.91 Status: Acute (2) COPD exacerbation ICD Code: J44.1 Status: Acute (3) Back pain at L4-L5 level ICD Code: M54.5 Status: Acute (4) HTN (hypertension) ICD Code: I10 Status: Chronic Assessment and Plan Patient is a 51-year-old female who came in to the hospital with respiratory distress, primary medical history includes COPD, hypothyroidism. Severe hypoxemic Respiratory failure COPD exacerbation - On IV steroids, methylprednisone every 8 hours, taper to 2 times a day then switched to prednisone by mouth 405 days - Continue Levaquin, switched to by mouth if tolerated - Continue duo nebs scheduled and when necessary - Symbicort when off prednisone - Monitor respiratory status HTN - Continue home meds lisinopril, enalapril when necessary Hypothyroidism - Continue with levothyroxine use Back pain - Pain management with Tylenol, oxycodone PRN - May add baclofen if necessary - Lumbar x-ray, follow-up results Jittery, anxiety - States she always had that jittery feeling for years and does not bother her DVT prop heparin, PPI Pepcid Full code Discuss with patient, nursing, Dr. Yoo Discharge Planning If patient remains stable today, possible DC home tomorrow. Arrangement for nebulizer machine. Problem Qualifiers (1) Respiratory failure with hypoxia: Qualified Code: J96.01 - Acute respiratory failure with hypoxia Omar Shaffer Jan 10, 2017 09:52
--- NOTE | 2017-01-10 14:42 | RADRPT ---
EXAM DATE/TIME: 01/10/2017 11:01 [facility] COMPARISON: No previous studies available for comparison. INDICATIONS : Lower back pain, been sleeping on the floor and irritated it. MEDICAL HISTORY : back injury years ago, no surgery. SURGICAL HISTORY : None. ENCOUNTER: Initial ACUITY: 1 day PAIN SCORE: 9/10 LOCATION: Bilateral lumbar spine FINDINGS: AP and lateral views of the lumbar spine show compression deformities involving the T12 and L3 verteb ral bodies. Superior endplate compression is seen at both locations. Compression is 20-30% at T12 and 10-20% at L3. No retropulsion at either site. No discrete cortical or trabecular irregularity. Remai marga vertebral bodies are maintained. Disc space heights are maintained. Osteopenia. Atherosclerotic calcifications of the abdominal aorta. Bilateral tubal ligation clips. CONCLUSION: 1. Age indeterminate compression deformities involving T12 and L3. Richard Joyce Jr., MD on January 10, 2017 at 14:39 Board Certified Radiologist. This report was verified electronically.
[2017-01-10] MEDS ORDERED: LISINOPRIL 10 MG TAB PO ONE (17:15)
[2017-01-10] MEDS: LEVOFLOXACIN 750 MG PREMIX INJ 150 ML IV SCH (20:21)
[2017-01-10] MEDS: cloNIDine HCL 0.1 MG TAB PO PRN (22:23)
[2017-01-11] VITALS (11 sets, daily range): BP systolic 140–213; BP diastolic 72–104; PULSE 84–110; RESP 18–20; TEMP 97.7–99.1; O2SAT 94–100
[2017-01-11] MEDS: ENALAPRILAT 2.5 MG/2 ML VIAL IV PUSH PRN ×2 (00:17→09:43)
[2017-01-11] MEDS: RESP: ALBUTEROL 2.5 MG/IPRATROPIUM 0.5 MG NEB (SCH) INH ×5 (00:34→15:18)
[2017-01-11] MEDS: MORPHINE SULFATE 4 MG/ML INJ IV PRN ×5 (03:06→21:09)
[2017-01-11] MEDS: CHLORHEXIDINE GLUCONATE 2 % 1 PACK (2 CLOTHS) TOP SCH (03:07)
[2017-01-11] MEDS: LEVOTHYROXINE SODIUM 75 MCG TAB PO SCH (06:11)
[2017-01-11] MEDS ORDERED: LISINOPRIL 10 MG TAB PO SCH (09:00)
[2017-01-11] MEDS: DOCUSATE SODIUM 50 MG/SENNA 8.6 MG TAB PO SCH ×2 (09:41→21:10)
[2017-01-11] MEDS: LISINOPRIL 20 MG TAB PO SCH (09:41)
[2017-01-11] MEDS: FAMOTIDINE 20 MG/2 ML VIAL IV PUSH SCH ×2 (09:42→21:10)
[2017-01-11] MEDS: methylPREDNISolone SOD SUCC 40 MG/1 ML VIAL IV PUSH SCH ×2 (09:42→21:10)
[2017-01-11] MEDS: HEPARIN SODIUM - SQ 10,000 UNITS/ML VIAL SQ SCH ×2 (09:43→21:09)
[2017-01-11] MEDS: SODIUM CHLORIDE 0.9% FLUSH 10 ML FLUSH SCH ×2 (09:44→21:10)
[2017-01-11 10:03] LABS: HEMATOCRIT 42.9 % (35.0-46.0); MEAN CORPUSCULAR HEMOGLOBIN 29.7 PG (27.0-34.0); MEAN CORPUSCULAR HGB CONC 32.3 % (32.0-36.0); PLATELET COUNT 268 TH/MM3 (150-450); RED BLOOD COUNT 4.66 MIL/MM3 (4.00-5.30); RED CELL DISTRIBUTION WIDTH 15.9 % (11.6-17.2); REVIEW FLAG FINAL; WHITE BLOOD COUNT 8.2 TH/MM3 (4.0-11.0)
[2017-01-11 10:37] LABS: BICARBONATE 36.7 MEQ/L (21.0-32.0); POTASSIUM 3.7 MEQ/L (3.5-5.1)
[2017-01-11] MEDS: LORazepam 0.5 MG TAB PO PRN ×2 (11:08→17:29)
[2017-01-11] MEDS: cloNIDine HCL 0.1 MG TAB PO PRN (14:32)
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
[2017-01-11] MEDS: NAPROXEN 250 MG TAB PO SCH (16:25)
[2017-01-11] MEDS: RESP: ALBUTEROL 2.5 MG/IPRATROPIUM 0.5 MG NEB (PRN) INH (20:39)
[2017-01-11] MEDS: LEVOFLOXACIN 750 MG PREMIX INJ 150 ML IV SCH (21:09)
[2017-01-12] VITALS (10 sets, daily range): BP systolic 154–192; BP diastolic 70–101; PULSE 90–109; RESP 18–20; TEMP 97.7–98.3; O2SAT 95–99
[2017-01-12] MEDS: LORazepam 0.5 MG TAB PO PRN ×4 (00:08→23:10)
[2017-01-12] MEDS: MORPHINE SULFATE 4 MG/ML INJ IV PRN ×6 (01:38→21:55)
[2017-01-12] MEDS: oxyCODONE/ACETAMINOPHEN 5 MG/325 MG TAB PO PRN ×3 (01:50→20:35)
[2017-01-12] MEDS: CHLORHEXIDINE GLUCONATE 2 % 1 PACK (2 CLOTHS) TOP SCH (02:45)
[2017-01-12] MEDS: NAPROXEN 250 MG TAB PO SCH ×2 (05:14→16:58)
[2017-01-12] MEDS: LEVOTHYROXINE SODIUM 75 MCG TAB PO SCH (05:14)
[2017-01-12] MEDS: cloNIDine HCL 0.1 MG TAB PO PRN (05:22)
[2017-01-12] MEDS: ENALAPRILAT 2.5 MG/2 ML VIAL IV PUSH PRN (06:35)
[2017-01-12] MEDS: RESP: ALBUTEROL 2.5 MG/IPRATROPIUM 0.5 MG NEB (PRN) INH ×3 (08:26→23:59)
[2017-01-12] MEDS: methylPREDNISolone SOD SUCC 40 MG/1 ML VIAL IV PUSH SCH ×2 (09:08→20:35)
[2017-01-12] MEDS: FAMOTIDINE 20 MG/2 ML VIAL IV PUSH SCH ×2 (09:08→20:35)
[2017-01-12] MEDS: HEPARIN SODIUM - SQ 10,000 UNITS/ML VIAL SQ SCH ×2 (09:08→20:34)
[2017-01-12] MEDS: LISINOPRIL 20 MG TAB PO SCH (09:09)
[2017-01-12] MEDS: DOCUSATE SODIUM 50 MG/SENNA 8.6 MG TAB PO SCH ×2 (09:09→20:35)
[2017-01-12] MEDS: SODIUM CHLORIDE 0.9% FLUSH 10 ML FLUSH SCH ×2 (10:51→20:35)
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
[2017-01-12] MEDS: RESP: ALBUTEROL 2.5 MG/IPRATROPIUM 0.5 MG NEB (SCH) NEB ×2 (16:08→19:32)
[2017-01-12] MEDS: GABAPENTIN 100 MG CAP PO SCH (16:58)
[2017-01-12] MEDS: LEVOFLOXACIN 750 MG PREMIX INJ 150 ML IV SCH (20:34)
[2017-01-13] VITALS (18 sets, daily range): BP systolic 115–187; BP diastolic 63–96; PULSE 85–127; RESP 12–20; TEMP 97.5–98.2; O2SAT 93–100
[2017-01-13] MEDS: MORPHINE SULFATE 4 MG/ML INJ IV PRN ×3 (02:30→10:46)
[2017-01-13] MEDS: oxyCODONE/ACETAMINOPHEN 5 MG/325 MG TAB PO PRN ×2 (02:43→09:22)
[2017-01-13] MEDS: CHLORHEXIDINE GLUCONATE 2 % 1 PACK (2 CLOTHS) TOP SCH (03:17)
[2017-01-13] MEDS: RESP: ALBUTEROL 2.5 MG/IPRATROPIUM 0.5 MG NEB (PRN) INH (04:51)
[2017-01-13] MEDS: LEVOTHYROXINE SODIUM 75 MCG TAB PO SCH (05:08)
[2017-01-13] MEDS: NAPROXEN 250 MG TAB PO SCH (05:09)
[2017-01-13] MEDS: LORazepam 0.5 MG TAB PO PRN ×2 (05:09→11:55)
[2017-01-13] MEDS: RESP: ALBUTEROL 2.5 MG/IPRATROPIUM 0.5 MG NEB (SCH) NEB (08:21)
[2017-01-13] MEDS: methylPREDNISolone SOD SUCC 40 MG/1 ML VIAL IV PUSH SCH ×2 (09:21→21:14)
[2017-01-13] MEDS: FAMOTIDINE 20 MG/2 ML VIAL IV PUSH SCH (09:21)
[2017-01-13] MEDS: LISINOPRIL 20 MG TAB PO SCH (09:21)
[2017-01-13] MEDS: DOCUSATE SODIUM 50 MG/SENNA 8.6 MG TAB PO SCH (09:21)
[2017-01-13] MEDS: GABAPENTIN 100 MG CAP PO SCH ×3 (09:21→17:46)
[2017-01-13] MEDS: HEPARIN SODIUM - SQ 10,000 UNITS/ML VIAL SQ SCH ×2 (09:22→21:14)
[2017-01-13] MEDS: SODIUM CHLORIDE 0.9% FLUSH 10 ML FLUSH SCH (09:29)
[2017-01-13] MEDS ORDERED: NEBULIZER1 MI1 (12:20)
[2017-01-13] MEDS ORDERED: ALBU0.08 NEB (12:20)
[2017-01-13] MEDS ORDERED: IPRASOL NEB (12:20)
[2017-01-13] MEDS ORDERED: LISI-515 PO (12:20)
[2017-01-13] MEDS ORDERED: GABA100C4 PO (12:20)
[2017-01-13] MEDS ORDERED: PRED10PA2 PO (12:21)
[2017-01-13] MEDS ORDERED: NALOXONE HCL 0.4 MG/ML AMP ONE (12:38)
[2017-01-13] MEDS ORDERED: FLUMAZENIL 0.5 MG/5 ML VIAL ONE (12:38)
[2017-01-13 12:59] LABS: BLOOD GAS BASE EXCESS 5.9 mmol/L (-2-2); BLOOD GAS CARBOXYHEMOGLOBIN 0.5 % (0-4); BLOOD GAS HCO3 35 mmol/L (22-26); BLOOD GAS METHEMOGLOBIN 0.9 % (0-2); BLOOD GAS O2 HGB SATURATION 98 % (90-100); BLOOD GAS PCO2 120 mmHg (38-42); BLOOD GAS PO2 290 mmHg (61-120); BLOOD GAS TOTAL HGB 12.6 G/DL (12.0-16.0); TEMP CORR TO 98.6
[2017-01-13 13:00] LABS: CRITICAL VALUE YES; DRAW SITE RT RADIAL; LITER FLOW 15 L/M; NUMBER OF ARTERIAL PUNCTURES 2; OXYGEN DEVICE NRB; STAT YES; ULNAR PULSE PRESENT
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
[2017-01-13] MEDS ORDERED: CHLORHEXIDINE GLUCONATE 2 % 1 PACK (2 CLOTHS) TOP PRN (14:30)
[2017-01-13] MEDS ORDERED: MISCELLANEOUS NURSING INFORMATION XX SCH (14:30)
[2017-01-13] MEDS ORDERED: NALOXONE HCL 0.4 MG/ML AMP IV PRN (14:30)
[2017-01-13] MEDS ORDERED: SODIUM CHLORIDE 0.9% FLUSH 10 ML FLUSH IV FLUSH PRN (14:30)
[2017-01-13] MEDS ORDERED: ONDANSETRON HCL 4 MG/2 ML VIAL IV PRN (15:00)
[2017-01-13] MEDS ORDERED: BISACODYL 10 MG SUPP RECTAL PRN (15:00)
[2017-01-13] MEDS ORDERED: LACTULOSE SYRUP 20 GM/30 ML CUP PO PRN (15:00)
[2017-01-13] MEDS ORDERED: MAGNESIUM HYDROXIDE SUSP 30 ML CUP PO PRN (15:00)
--- NOTE | 2017-01-13 15:07 | HHI.HP ---
HPI Service Critical Care Medicine Primary Care Physician Unknown Admission Diagnosis acute resp failure, COPD exac Diagnosis: (1) Respiratory failure with hypoxia (2) COPD exacerbation (3) Back pain at L4-L5 level (4) HTN (hypertension) Travel History International Travel<30 Days: No Contact w/Intl Traveler <30 Da: No Traveled to Known Affected Are: No History of Present Illness 51-year-old female presented with profound respiratory distress. She has history of severe COPD. She wears 3 L nasal cannula [id number] and uses nebulizers. She ran out of her nebulizer 2 days ago. She lives in an apartment with multiple smoking roommates and paramedics reported that there was a lot of smoking going on when they arrived. Symptoms are severe. Duration 3 days. No alleviating factors. She is not having cough or chest pain or fever. She had IV Solu-Medrol and 2 nebulizers in route. In the emergency department she was in severe respiratory distress with O2 sat around 60s and was intubated by ER attending for hypoxemic respiratory failure. Patient subsequently improved and was transferred to the floor and remained on BiPAP and was weaned to nasal cannula. Today on 01/13/17 with plan for discharge , patient was noted to be hypercarbic respiratory arrest, with a PaCO2 greater than 100, dyspneic, severe drowsiness, and hypoxemic and found him lying in the bathroom some conscious on the floor with boyfriend. A Halicat was initiated, the patient received Narcan and was transferred emergently to [facility]. Upon arrival to [facility] the patient was immediately placed on BiPAP, with close monitoring. Upon interviewing of family/friend, information was obtained that the patient had obtained outside medications, and had utilized some type of unknown substances in the bathroom. A backpack was found on the medical floor at [place] to the patient with noted drug IV paraphernalia, drugs, and a height as well as alcoholvodka .Security was notified, urine toxicity obtained. Critical care medicine consulted for management. Review of Systems ROS Limitations: Clinical Condition Past Family Social History Allergies: Coded Allergies: *MDRO Multi-Drug Resistant Organism (Verified Adverse Reaction, Unknown, MRSA, 01/08/17) MRSA screen (nares) POSITIVE - 01/08/17 Family History Unable to obtain secondary to level of consciousness Physical Exam Vital Signs Vital Signs Date Time Temp Pulse Resp B/P Pulse Ox O2 Delivery O2 Flow Rate FiO2 01/13/17 13:20 98 Bi-Pap 40 01/13/17 13:12 95 Bi-Pap 30 01/13/17 13:10 94 30 01/13/17 13:09 127 01/13/17 13:07 98.0 121 17 163/91 01/13/17 12:57 98 3.00 01/13/17 12:00 98.2 117 20 183/96 96 01/13/17 08:22 98 Nasal Cannula 2.00 01/13/17 08:00 97.5 99 20 187/93 98 01/13/17 08:00 85 01/13/17 08:00 96 Nasal Cannula 3.00 35 01/13/17 06:57 20 01/13/17 04:53 99 Nasal Cannula 3.00 01/13/17 04:00 97.7 90 18 155/72 99 01/13/17 03:16 20 01/13/17 00:01 97 Nasal Cannula 3.00 01/13/17 00:00 97.9 96 18 145/72 98 01/12/17 20:00 98.2 99 18 175/85 97 01/12/17 20:00 108 01/12/17 20:00 Nasal Cannula 2.00 01/12/17 16:11 98 Nasal Cannula 2.00 01/12/17 16:00 98.0 109 20 178/82 99 01/12/17 16:00 Nasal Cannula 2.00 Physical Exam GENERAL: Elderly appearing woman extremely lethargic, but arousable SKIN: Warm and dry. HEAD: Normocephalic. EYES: No scleral icterus. No injection or drainage. NECK: Supple, trachea midline. No JVD or lymphadenopathy. CARDIOVASCULAR: Regular rate and rhythm without murmurs, gallops, or rubs. RESPIRATORY: Breath sounds equal bilaterally. No accessory muscle use. Placed on BiPAP GASTROINTESTINAL: Abdomen soft, non-tender, nondistended. MUSCULOSKELETAL: No cyanosis, or edema. BACK: Nontender without obvious deformity. No CVA tenderness. EXTREMITIES: No clubbing cyanosis or edema Neuro: Extremely lethargic, but arousable. Moving extremities 4. Non- cooperative secondary to lethargy Laboratory Laboratory Tests Test 01/13/17 12:34 Blood Gas Puncture Site RT RADIAL Blood Gas Patient Temperature 98.6 Blood Gas HCO3 35 Blood Gas Base Excess 5.9 Blood Gas Oxygen Saturation 98 Arterial Blood pH 7.10 Arterial Blood Partial 120 Pressure CO2 Arterial Blood Partial 290 Pressure O2 Arterial Blood Oxygen Content 18.0 Arterial Blood 0.5 Carboxyhemoglobin Arterial Blood Methemoglobin 0.9 Blood Gas Hemoglobin 12.6 Oxygen Delivery Device NRB Blood Gas Liter Flow 15 Result Diagram: 01/11/17 0850 01/11/17 0850 Imaging CXR pending Septic Shock Reassessment Heart: Regular rate and rhythm Lungs: Clear Skin: Warm Peripheral Pulses: Bounding Right Radial Bounding Left Radial Assessment and Plan Assessment and Plan Respiratory failure - Severe hypoxemic respiratory failure - Underlying COPD -CO2 narcosis - IV steroids - Empiric antibiotics-Levaquin daily - DuoNeb scheduled and when necessary - SBT daily - CXR and ABG -follow-up results Toxic encephalopathy -Unknown substance use -History of known IVDA -Obtain U tox -Narcan 0.4 mg PRN -Continue IV, and PO narcotics -Consider Ofirmev, for pain relief. Patient continued on gabapentin 100 mg 3 times a day for neuropathy Hypertension - Continue home meds lisinopril Hypothyroidism - Synthroid DVT GI prophylaxis - Teds SCDs and subcutaneous heparin - Pepcid This patient remains critically ill with one or more organ systems which are or may become a threat to life. I have spent in excess of 35 minutes discontinuously in the care and management of this patient. This time is exclusive of procedures, and includes, but is not limited to, evaluation of the patient, review of the medical record, discussions with family, consultants, nursing staff, or respiratory therapy, and documentation in the medical record. Code Status Full Discussed Condition With BASKETBALL COACH at bedside Problem Qualifiers (1) Respiratory failure with hypoxia: Qualified Code: J96.01 - Acute respiratory failure with hypoxia Kathya Floyd MD Jan 13, 2017 15:06
--- NOTE | 2017-01-13 15:12 | RADRPT ---
EXAM DATE/TIME: 01/13/2017 14:44 [facility] COMPARISON: CHEST SINGLE AP, January 08, 2017, 4:55. CHEST SINGLE AP, January 07, 2017, 18:23. CHEST SINGLE AP, October 092016, 9:09. INDICATIONS : Shortness of breath. MEDICAL HISTORY : Chronic obstructive pulmonary disease. SURGICAL HISTORY : None. ENCOUNTER: Initial ACUITY: 1 day PAIN SCORE: 0/10 LOCATION: Bilateral chest FINDINGS: No infiltrate, effusion or pneumothorax demonstrated. Heart size stable, within normal limits. Increased elevation of the left hemidiaphragm and appears to be related to gastric and/or small bowel distention. CONCLUSION: Apparent gastric and/or small bowel distention causing some elevation of the left hemidiaphragm. No a cute cardiopulmonary disease demonstrated. Bennie Abad MD on January 13, 2017 at 15:08 Board Certified Radiologist. This report was verified electronically.
[2017-01-13] MEDS: RESP: ALBUTEROL 2.5 MG/IPRATROPIUM 0.5 MG NEB (SCH) INH ×2 (15:14→20:06)
[2017-01-13 15:55] LABS: AMPHETAMINE, URINE NEG (NEG); BARBITURATES, URINE NEG (NEG); COCAINE, URINE NEG (NEG)
[2017-01-13] MEDS ORDERED: RESP: ALBUTEROL 2.5 MG/IPRATROPIUM 0.5 MG NEB (PRN) INH (16:00)
[2017-01-13 17:14] LABS: BLOOD GAS BASE EXCESS 10.7 mmol/L (-2-2); BLOOD GAS CARBOXYHEMOGLOBIN 1.1 % (0-4); BLOOD GAS HCO3 39 mmol/L (22-26); BLOOD GAS METHEMOGLOBIN 1.2 % (0-2); BLOOD GAS O2 HGB SATURATION 95 % (90-100); BLOOD GAS OXYGEN CONTENT 15.7 Vol % (12.0-20.0); BLOOD GAS PCO2 102 mmHg (38-42); BLOOD GAS PO2 115 mmHg (61-120); BLOOD GAS TOTAL HGB 11.6 G/DL (12.0-16.0); TEMP CORR TO 98.6
[2017-01-13 17:15] LABS: CRITICAL VALUE YES; DRAW SITE RT RADIAL; FIO2 40 %; NUMBER OF ARTERIAL PUNCTURES 1; OXYGEN DEVICE BIPAP; STAT NO; ULNAR PULSE PRESENT; VENT SETTINGS IPAP+5/EPAP+5
[2017-01-13] MEDS ORDERED: NALOXONE HCL 0.4 MG/ML AMP IV PUSH ONE (18:00)
[2017-01-13] MEDS: LEVOFLOXACIN 750 MG PREMIX INJ 150 ML IV SCH (20:00)
[2017-01-13] MEDS ORDERED: SENNOSIDES 8.6 MG TAB PO PRN (21:00)
[2017-01-13] MEDS ORDERED: DOCUSATE SODIUM 50 MG/SENNA 8.6 MG TAB PO SCH (21:00)
[2017-01-13] MEDS: SODIUM CHLORIDE 0.9% FLUSH 10 ML FLUSH IV FLUSH SCH (21:14)
[2017-01-13 22:27] LABS: BLOOD GAS BASE EXCESS 12.1 mmol/L (-2-2); BLOOD GAS CARBOXYHEMOGLOBIN 1.2 % (0-4); BLOOD GAS HCO3 39 mmol/L (22-26); BLOOD GAS METHEMOGLOBIN 1.2 % (0-2); BLOOD GAS O2 HGB SATURATION 96 % (90-100); BLOOD GAS PCO2 83 mmHg (38-42); BLOOD GAS PO2 114 mmHg (61-120); CRITICAL VALUE YES; DRAW SITE RT RADIAL; FIO2 40 %; OXYGEN DEVICE BIPAP; TEMP CORR TO 98.6; VENT SETTINGS IPAP10/EPAP5
[2017-01-13 22:28] LABS: NUMBER OF ARTERIAL PUNCTURES 1; STAT NO; ULNAR PULSE PRESENT
[2017-01-14] VITALS (9 sets, daily range): BP systolic 136–146; BP diastolic 64–79; PULSE 83–100; RESP 18–21; TEMP 99–99.5; O2SAT 96–100
[2017-01-14] MEDS: CHLORHEXIDINE GLUCONATE 2 % 1 PACK (2 CLOTHS) TOP SCH (01:50)
[2017-01-14] MEDS: RESP: ALBUTEROL 2.5 MG/IPRATROPIUM 0.5 MG NEB (SCH) INH ×3 (03:51→14:53)
[2017-01-14] MEDS ORDERED: CHLORHEXIDINE GLUCONATE 2 % 1 PACK (2 CLOTHS) TOP SCH (04:00)
[2017-01-14] MEDS: LEVOTHYROXINE SODIUM 75 MCG TAB PO SCH (06:15)
[2017-01-14] MEDS: HEPARIN SODIUM - SQ 10,000 UNITS/ML VIAL SQ SCH (08:10)
[2017-01-14] MEDS: methylPREDNISolone SOD SUCC 40 MG/1 ML VIAL IV PUSH SCH (08:10)
[2017-01-14] MEDS: GABAPENTIN 100 MG CAP PO SCH ×2 (08:10→13:04)
[2017-01-14] MEDS: LISINOPRIL 20 MG TAB PO SCH (08:10)
[2017-01-14] MEDS: SODIUM CHLORIDE 0.9% FLUSH 10 ML FLUSH IV FLUSH SCH (08:25)
[2017-01-14 08:43] LABS: HEMATOCRIT 33.5 % (35.0-46.0); MEAN CELL VOLUME 93.2 FL (80.0-100.0); MEAN CORPUSCULAR HEMOGLOBIN 29.6 PG (27.0-34.0); MEAN CORPUSCULAR HGB CONC 31.7 % (32.0-36.0); PLATELET COUNT 264 TH/MM3 (150-450); RED BLOOD COUNT 3.59 MIL/MM3 (4.00-5.30); RED CELL DISTRIBUTION WIDTH 15.9 % (11.6-17.2); REVIEW FLAG FINAL; WHITE BLOOD COUNT 11.8 TH/MM3 (4.0-11.0)
[2017-01-14] MEDS ORDERED: PANTOPRAZOLE SODIUM 40 MG VIAL IV SCH (09:00)
--- NOTE | 2017-01-14 09:22 | HHI.DS ---
Discharge Summary Admission Date Jan 07, 2017 at 18:52 Discharge Date: Jan 14, 2017 Admitting Diagnosis acute resp failure, COPD exac (1) Respiratory failure with hypoxia ICD Code: J96.91 (2) COPD exacerbation ICD Code: J44.1 (3) Back pain at L4-L5 level ICD Code: M54.5 (4) HTN (hypertension) ICD Code: I10 Procedures Intubation Brief History - From Admission 51-year-old female presented with profound respiratory distress. She has history of severe COPD. She wears 3 L nasal cannula [id number] and uses nebulizers. She ran out of her nebulizer 2 days ago. She lives in an apartment with multiple smoking roommates and paramedics reported that there was a lot of smoking going on when they arrived. Symptoms are severe. Duration 3 days. No alleviating factors. She is not having cough or chest pain or fever. She had IV Solu-Medrol and 2 nebulizers in route. In the emergency department she was in severe respiratory distress with O2 sat around 60s and was intubated by ER attending for hypoxemic respiratory failure. Patient subsequently improved and was transferred to the floor and remained on BiPAP and was weaned to nasal cannula. Today on 01/13/17 with plan for discharge , patient was noted to be hypercarbic respiratory arrest, with a PaCO2 greater than 100, dyspneic, severe drowsiness, and hypoxemic and found him lying in the bathroom some conscious on the floor with boyfriend. A Halicat was initiated, the patient received Narcan and was [place] emergently [place] [facility] [place] [facility] [place] the patient was immediately placed on BiPAP, with close monitoring. Upon interviewing of family/friend, information was obtained that the patient had obtained outside medications, and had utilized some type of unknown substances in the bathroom. A backpack was found on the medical floor at [place] to the patient with noted drug IV paraphernalia, drugs, and a height as well as alcoholvodka .Security was notified, urine toxicity obtained. Critical care medicine consulted for management. CBC/BMP: 01/14/17 0802 01/11/17 0850 Significant Findings Laboratory Tests Test 01/13/17 01/13/17 01/13/17 01/13/17 12:34 14:59 16:52 22:10 Blood Gas HCO3 35 mmol/L 39 mmol/L 39 mmol/L (22-26) (22-26) (22-26) Blood Gas Base Excess 5.9 mmol/L 10.7 mmol/L 12.1 mmol/L (-2-2) (-2-2) (-2-2) Arterial Blood pH 7.10 7.20 7.29 (7.380-7.420) (7.380-7.420) (7.380-7.420) Arterial Blood Partial 120 mmHg 102 mmHg 83 mmHg (38-42) Pressure CO2 (38-42) (38-42) Arterial Blood Partial 290 mmHg Pressure O2 (61-120) Urine Opiates Screen POS (NEG) Blood Gas Hemoglobin 11.6 G/DL 11.0 G/DL (12.0-16.0) (12.0-16.0) Test 01/14/17 08:02 White Blood Count 11.8 TH/MM3 (4.0-11.0) Red Blood Count 3.59 MIL/MM3 (4.00-5.30) Hemoglobin 10.6 GM/DL (11.6-15.3) Hematocrit 33.5 % (35.0-46.0) Mean Corpuscular Hemoglobin 31.7 % Concent (32.0-36.0) PE at Discharge GENERAL: NAD, A&Ox3, cachexia HEAD: Normocephalic. NECK: Supple, trachea midline. No lymphadenopathy. EYES: No scleral icterus. No injection or drainage. CARDIOVASCULAR: Regular rate and rhythm without murmurs, gallops, or rubs. RESPIRATORY: Breath sounds equal bilaterally. No accessory muscle use. Barrel chest. GASTROINTESTINAL: Abdomen soft, non-tender, nondistended. MUSCULOSKELETAL: No cyanosis, or edema. SKIN: Warm and dry. NEURO: No focal neurological deficitis. Hospital Course Mrs. Enriquez was admitted with acute respiratory failure secondary to COPD exacerbation. She needed intubation during this hospital stay. Thus she reports is the first time she needed intubation. She was successfully extubated and has been treated for her COPD exacerbation. Slow recovery was present. She was stable for discharge yesterday and discharge was entered, however patient subsequently used heroin in her bathroom and became unresponsive. She needed BiPAP and Narcan and monitoring overnight but is back to baseline today and stable for discharge. Medically clear for discharge today. Pt Condition on Discharge: Stable Discharge Disposition: Discharge Home Discharge Time: <= 30 minutes Discharge Instructions DIET: Follow Instructions for: As Tolerated, No Restrictions Activities you can perform: Regular-No Restrictions Follow up Referrals: PCP Follow-up - 1 Week New Medications: Albuterol Neb (Albuterol Neb) 2.5 Mg/3 Ml Neb 2.5 MG NEB QID NEB PRN WHEEZING #60 Ref 0 NEBULE Nebulizer (Nebulizer) 1 Mis Mis 1 EA .ROUTE DIRECTED Breathing Treatment #1 Ref 0 EA Prednisone (48) 10 mg tab Dose Pack (Prednisone (48) 10 mg tab Dose Pack) 10 Mg Dspk 10 MG PO DIRECTED Inflammation #1 Ref 0 DSPK Gabapentin (Gabapentin) 100 Mg Cap 100 MG PO TID Pain Management #40 CAP Ipratropium-Albuterol Neb (Duoneb) 0.5-2.5 Mg/3 Ml Neb 1 AMPULE NEB TID COPD #90 ML Lisinopril (Lisinopril) 20 Mg Tab 40 MG PO DAILY Blood Pressure Management #30 TAB Enrrique Yoo MD Jan 14, 2017 09:22
[2017-01-14 09:35] LABS: BICARBONATE 41.4 MEQ/L (21.0-32.0); MAGNESIUM 2.2 MG/DL (1.5-2.5); POTASSIUM 4.3 MEQ/L (3.5-5.1)
[2017-01-14] MEDS: cloNIDine HCL 0.1 MG TAB PO PRN (13:04)
--- NOTE | 2017-01-14 17:27 | EKG ---
Date Performed: 01/13/2017 Time Performed: 12:42:32 PTAGE: 51 years EKG: Sinus tachycardia. ST junctional depression is nonspecific Since previous tracing, no signi ficant change noted Borderline ECG PREVIOUS TRACING : 10/25/2016 08.48 DOCTOR: Hayden Ladd Interpretating Date/Time 01/14/2017 17:26:27
== END 2017-01-14 19:15 | disposition home or self-care (01) | DRG 208 ==
LOC: NEPC 18:07 → NEDA 18:52 → HCVR 20:25 → N04B 01-09 17:27 → HIMN 01-13 13:15
PROVIDERS: ADMIT Hospitalist; ATTEND Hospitalist
PROC: 5A1935Z Respiratory Ventilation, Less than 24 Consecutive Hours (ICD-10-PCS; principal; 2017-01-07)
PROC: 0BH17EZ Insertion of Endotracheal Airway into Trachea, Via Natural or Artificial Opening (ICD-10-PCS; 2017-01-07)
PROC: 5A09357 Assistance with Respiratory Ventilation, Less than 24 Consecutive Hours, Continuous Positive Airway Pressure (ICD-10-PCS; 2017-01-13)
DX: J96.21 Acute and chronic respiratory failure with hypoxia (principal); R09.2 Respiratory arrest; G92 Toxic encephalopathy; J44.1 Chronic obstructive pulmonary disease with (acute) exacerbation; Z99.81 Dependence on supplemental oxygen; F11.90 Opioid use, unspecified, uncomplicated; I10 Essential (primary) hypertension; E03.9 Hypothyroidism, unspecified; Z77.22 Contact with and (suspected) exposure to environmental tobacco smoke (acute) (chronic); X58.XXXA Exposure to other specified factors, initial encounter; Y92.009 Unspecified place in unspecified non-institutional (private) residence as the place of occurrence of the external cause; Z87.891 Personal history of nicotine dependence; G62.9 Polyneuropathy, unspecified; F41.9 Anxiety disorder, unspecified; M54.5 Low back pain
CPT/HCPCS: 31500; 36600; 51702; 71010; 72100; 76937; 80048; 80053; 80307; 82805; 82948; 83735; 84100; 84703; 85007; 85025; 85027; 87641; 93005; 94002; 94003; 94150; 94640; 94664; C9113; J0330; J1644; J1956; J2250; J2270; J2310; J2920; J3010; J7030